=== PATIENT | female | born 1965 | race Caucasian/White ===

== ENCOUNTER 2016-11-24 19:49 | Inpatient (IN) | payer BC ==
[2016-11-24] MEDS ORDERED: SODIUM CHLORIDE 0.9% 1,000 ML IV STA (20:12)
[2016-11-24] MEDS ORDERED: SODIUM CHLORIDE 0.9% 1,000 ML IV ONE (20:12)
[2016-11-24] MEDS ORDERED: MORPHINE SULFATE 4 MG/ML SYRINGE IV STA (20:12)
[2016-11-24] MEDS ORDERED: IV VANCOMYCIN PER PHARMACY 1 EACH MISC MISCELLANE PRN (20:14)
[2016-11-24] MEDS ORDERED: ACETAMINOPHEN TAB 500 MG TAB PO STA (20:15)
--- NOTE | 2016-11-24 20:18 | ED ---
General Adult HPI - General Chief complaint: Extremity Problem,Nontraumatic Stated complaint: rt leg swelling Time Seen by Provider: 11/24/16 20:09 Source: patient, RN notes reviewed, old records reviewed Mode of arrival: ambulatory Limitations: no limitations - History of Present Illness Initial comments: This is a 3-year-old female here for evaluation. The patient comes in for evaluation of right lower extremity pain. He subsequently myalgias fever and aches and pains. Patient's pain in her right leg is consistent with prior history of fluids. Patient has bilateral lower extremity edema. Is on water pills for swelling. Patient states the pain Surtees go progressively worsening also ordered a fever. She states she has been recently hospitalized in the past for bouts of cellulitis - Related Data Home Medications Medication Instructions Recorded Confirmed Acetaminophen Tab [Tylenol Tab] 650 mg PO Q6H PRN 11/24/16 11/24/16 Albuterol Inhaler [Ventolin Hfa 2 puff INHALATION RT-Q6H PRN 11/24/16 11/24/16 Inhaler] Cetirizine HCl [Zyrtec] 10 mg PO DAILY 11/24/16 11/24/16 Furosemide [Lasix] 20 mg PO DAILY 11/24/16 11/24/16 Glucosamine/Chondr Florez A Sod [Osteo 1 tab PO DAILY 11/24/16 11/24/16 Bi-Flex Caplet] Lisinopril [Zestril] 2.5 mg PO DAILY 11/24/16 11/24/16 Montelukast [Singulair] 10 mg PO HS 11/24/16 11/24/16 Multivitamins, Thera [Multivitamin 1 tab PO DAILY 11/24/16 11/24/16 (formulary)] Spironolactone [Aldactone] 25 mg PO DAILY 11/24/16 11/24/16 Allergies Allergy/AdvReac Type Severity Reaction Status Date / Time ibuprofen Allergy Swelling Verified 11/24/16 20:25 Review of Systems ROS Statement: Those systems with pertinent positive or pertinent negative responses have been documented in the HPI. ROS Other: All systems not noted in ROS Statement are negative. Past Medical History Past Medical History: Asthma History of Any Multi-Drug Resistant Organisms: None Reported Past Surgical History: Section, Orthopedic Surgery Additional Past Surgical History / Comment(s): knee, shoulder Past Psychological History: No Psychological Hx Reported Smoking Status: Never smoker Past Alcohol Use History: None Reported Past Drug Use History: None Reported General Exam Limitations: no limitations General appearance: alert, in no apparent distress Head exam: Present: atraumatic, normocephalic, normal inspection Eye exam: Present: normal appearance, PERRL, EOMI. Absent: scleral icterus, conjunctival injection, periorbital swelling ENT exam: Present: normal exam, mucous membranes moist Neck exam: Present: normal inspection. Absent: tenderness, meningismus, lymphadenopathy Respiratory exam: Present: normal lung sounds bilaterally. Absent: respiratory distress, wheezes, rales, rhonchi, stridor Cardiovascular Exam: Present: regular rate, normal rhythm, normal heart sounds. Absent: systolic murmur, diastolic murmur, rubs, gallop, clicks GI/Abdominal exam: Present: soft, normal bowel sounds. Absent: distended, tenderness, guarding, rebound, rigid Extremities exam: Present: normal inspection, full ROM, normal capillary refill , other (Right lower extremity swelling edema or erythema, circumferential warmth and tenderness). Absent: tenderness, pedal edema, joint swelling, calf tenderness Back exam: Present: normal inspection Neurological exam: Present: alert, oriented X3, CN II-XII intact Psychiatric exam: Present: normal affect, normal mood Skin exam: Present: warm, dry, intact, normal color. Absent: rash Course Vital Signs 11/24/16 20:02 Temperature 99.4 F Pulse Rate 97 Respiratory 18 Rate Blood Pressure 131/59 O2 Sat by Pulse 98 Oximetry - Reevaluation(s) Reevaluation #1: 11/24/16 20:17 Patient's bodyaches and myalgias are improved with the pain control EKG Findings - EKG Comments: EKG Findings:: EKG shows normal sinus Anabell 94, ID 140, QRS 80, QTC 432 Medical Decision Making - Medical Decision Making 51 female in the ER for evaluation of right lower extremity swelling and severe Bredeson erythema, warmth and tenderness. Patient with positive right lower extremity cellulitis circumferential spreading from pedis or topical foot to just below knee. Patient be admitted for IV antibiotics. Prior history of gram -negative cellulitis - Radiology Data Radiology results: report reviewed (Chest x-ray is negative for acute disease), image reviewed Disposition Clinical Impression: Cellulitis of right lower extremity Disposition: ADMITTED IP TO THIS HOSP Condition: Good Referrals: Jose Francisco Isabel MD [Primary Care Provider] - 1-2 days
[2016-11-24] MEDS ORDERED: VANCOMYCIN 1,750 MG in SODIUM CHLORIDE 0.9% 250 ML IVPB STA (20:20)
[2016-11-24 21:33] LABS: Basophils % (A) 0 %; CH 29.7; CHCM 33.3; Eosinophils % (A) 0 %; HCT 40.4 % (34.0-46.0); HDW 2.73; HGB 13.4 gm/dL (11.4-16.0); Luc # (Auto) 0.03; Luc % (Auto) 0; Lymphocytes # (A) 0.2 k/uL (1.0-4.8); Lymphocytes % (A) 2 %; MCH 29.9 pg (25.0-35.0); MCHC 33.3 g/dL (31.0-37.0); MCV 89.8 fL (80.0-100.0); Mean Platelet Volume 9.5; Monocytes # (A) 0.1 k/uL (0-1.0); Monocytes % (A) 1 %; Neutrophils # (A) 10.7 k/uL (1.3-7.7); Neutrophils % (A) 97 %; RDW 14.2 % (11.5-15.5); WBC 11.1 k/uL (3.8-10.6); WBC (Perox) 11.47
[2016-11-24 21:37] LABS: Appearance,Urine Cloudy (Clear); Bilirubin,Urine 1+ (Negative); Glucose,Urine (UA) Trace (Negative); Ketones,Urine Trace (Negative); Leukocyte Esterase,Urine Trace (Negative); Mucus,Urine Many /hpf; Nitrite,Urine Negative (Negative); Particle Count 24479; Protein,Urine 2+ (Negative); RBC,Urine 2 /hpf (0-5); Specific Gravity,Urine 1.037 (1.001-1.035); Squamous Epithelial Cell,Urine 4 /hpf (0-4); UA Billing (MACRO vs. MICRO) MICRO; WBC,Urine 8 /hpf (0-5)
--- NOTE | 2016-11-24 21:42 | XR ---
EXAMINATION TYPE: XR chest 2V DATE OF EXAM: 11/24/2016 COMPARISON: NONE INDICATION: Weakness right lower extremity redness and swelling dizziness TECHNIQUE: Frontal and lateral views of the chest are obtained. FINDINGS: The heart size is normal. The pulmonary vasculature is normal. The lungs are clear. IMPRESSION: 1. No acute pulmonary process.
[2016-11-24 21:44] LABS: ALT 76 U/L (9-52); AST 61 U/L (14-36); Alkaline Phosphatase 97 U/L (38-126); Anion Gap 11 mmol/L; Blood Urea Nitrogen 13 mg/dL (7-17); Calcium 9.1 mg/dL (8.4-10.2); Carbon Dioxide 22 mmol/L (22-30); Chloride 105 mmol/L (98-107); Glucose 109 mg/dL (74-99); Magnesium 1.8 mg/dL (1.6-2.3); Non-African American GFR(MDRD) >60 (>60 ml/min/1.73 sqM); Phosphorous 2.7 mg/dL (2.5-4.5); Potassium 3.7 mmol/L (3.5-5.1); Sodium 138 mmol/L (137-145); Total Protein 6.3 g/dL (6.3-8.2)
[2016-11-24 21:46] LABS: INR 1.3 (<1.1); Partial Thromboplastin Time 31.2 sec (22.0-30.0); Prothrombin Time 13.2 sec (9.0-12.0)
[2016-11-24 22:16] LABS: Creatine Kinase MB 0.9 ng/mL (0.0-2.4)
[2016-11-24 23:01] VITALS: BMI 43.3
[2016-11-25] MEDS: ACETAMINOPHEN TAB 325 MG TAB PO PRN ×2 (03:24→15:37)
[2016-11-25] MEDS: VANCOMYCIN 1,750 MG in SODIUM CHLORIDE 0.9% 250 ML IVPB SCH ×2 (05:56→17:58)
[2016-11-25] MEDS: ENOXAPARIN 40 MG/0.4 ML SYRINGE SQ SCH (07:46)
[2016-11-25] MEDS ORDERED: ALBUTEROL NEBULIZED 2.5 MG/3 ML INHALATION PRN (08:58)
[2016-11-25] MEDS: HYDROcodone/APAP 7.5-325MG 1 EACH TAB PO PRN ×3 (10:25→20:10)
[2016-11-25] MEDS: SPIRONOLACTONE 25 MG TAB PO SCH (10:26)
[2016-11-25] MEDS: LISINOPRIL 2.5 MG TAB PO SCH (10:26)
[2016-11-25] MEDS: FUROSEMIDE 20 MG TAB PO SCH (10:26)
[2016-11-25] MEDS ORDERED: MULTIVITAMINS, THERA 1 EACH TAB PO SCH (12:00)
--- NOTE | 2016-11-25 13:13 | US ---
EXAMINATION TYPE: US venous Doppler duplex LE RT DATE OF EXAM: 11/25/2016 11:55 AM COMPARISON: 04/21/2010 CLINICAL HISTORY: r/o DVT. Cellulitis; right lower leg pain, redness and swelling x 3 days. SIDE PERFORMED: Right TECHNIQUE: The lower extremity deep venous system is examined utilizing real time linear array sonog norma with graded compression, Doppler sonography and color-flow sonography. VESSELS IMAGED: Common Femoral Vein Deep Femoral Vein Greater Saphenous Vein * Femoral Vein Popliteal Vein Small Saphenous Vein * Proximal Calf Veins (* superficial vessels) Right Leg: Negative for DVT; prominent lymph node is noted at right groin = 1.3 x 1.4 x 1.2cm. IMPRESSION: 1 no diagnostic evidence of DVT. 2. Right inguinal adenopathy.
[2016-11-25] MEDS: NAPROXEN 250 MG TAB PO SCH ×2 (18:06→21:59)
--- NOTE | 2016-11-25 20:15 | P.CONS ---
History of Present Illness - Reason for Consult Consult date: 11/25/16 - Chief Complaint Fever pain right leg - History of Present Illness Pleasant 51-year-old female presents to the emergency center with a sudden onset of increasing pain erythema and tenderness to her right lower extremity. Was associated with the onset of significant myalgias as well as fever and chills and body aches. She has history of prior cellulitis of the right lower extremity. At that time it was thought due to some dermatophycosis. She's been trying to moisturize her skin. Timmy had the sudden onset of the pain and swelling to the right limb. With no antecedent trauma that she is aware of. Because she felt so poorly she presented emergency center where she was found have a temperature of 102.5. With this the infectious diseases consultation was requested. She relates that in the past her prior infection was E. coli. Review of Systems HEENT: Complains of headache but no visual change Denies sinus or mouth discomforts. Denies neck stiffness or pain. Denies significant oral cavity pain. Denies difficulty on swallowing. Lungs: Denies significant shortness of breath, cough, sputum production, or hemoptysis. Cardiovascular: Denies significant shortness of breath, chest pain, chest wall pain, orthopnea, dyspnea on exertion, syncope Gastrointestinal:Denies nausea, vomiting, diarrhea, constipation, hematemesis, melena, hematochezia. No no significant change of bowel habit noticed. Musculoskeletal: denies significant myalgias or arthralgias. No new joint swelling. Denies new back pain. Skin: Her the HPI Neuro: Denies headache or visual change. Denies any new onset weakness or difficulty with ambulation. Denies falls or seizures. Psychiatric:Denies anxiety or depression. Endocrine: Denies significant fatigue, denies significant weight loss or weight gain. Past Medical History Past Medical History: Asthma, Hypertension, Pneumonia Additional Past Medical History / Comment(s): Rt leg cellulitis 4 years ago with ecoli in the leg wounds. History of Any Multi-Drug Resistant Organisms: None Reported Past Surgical History: Section, Orthopedic Surgery Additional Past Surgical History / Comment(s): 3 right knee surgeries, Left shoulder surgery Past Anesthesia/Blood Transfusion Reactions: No Reported Reaction Past Psychological History: No Psychological Hx Reported Additional Psychological History / Comment(s): . Lives in the family home. No animal exposures. No travel. No trauma. No experience Smoking Status: Never smoker Medications and Allergies Home Medications and Allergies Comment(s): Current Medications Acetaminophen (Tylenol Tab) 650 mg PO Q6HR PRN PRN Reason: Fever and/ or Mild Pain Last Admin: 11/25/16 15:37 Dose: 650 mg Hydrocodone Bitart/Acetaminophen ([place] 7.5-325) 1 each PO Q4H PRN PRN Reason: Moderate Pain Last Admin: 11/25/16 14:58 Dose: 1 each Albuterol Sulfate (Ventolin Nebulized) 2.5 mg INHALATION RT-Q6H PRN PRN Reason: Shortness Of Breath Enoxaparin Sodium (Lovenox) 40 mg SQ DAILY [facility] Last Admin: 11/25/16 07:46 Dose: Not Given Furosemide (Lasix) 20 mg PO DAILY [facility] Last Admin: 11/25/16 10:26 Dose: 20 mg Ceftriaxone Sodium 1,000 mg/ (Sodium Chloride) 50 mls @ 100 mls/hr IVPB Q24H [facility] Vancomycin HCl 1,750 mg/ (Sodium Chloride) 250 mls @ 125 mls/hr IVPB Q12H [facility] Last Admin: 11/25/16 17:58 Dose: 125 mls/hr Lisinopril (Zestril) 2.5 mg PO DAILY [facility] Last Admin: 11/25/16 10:26 Dose: 2.5 mg Montelukast Sodium (Singulair) 10 mg PO HS [facility] Multivitamins (Theragran) 1 each PO DAILY@1200 XANDER Naproxen (Naprosyn) 500 mg PO TID [facility] Last Admin: 11/25/16 18:06 Dose: 500 mg Spironolactone (Aldactone) 25 mg PO DAILY [facility] Last Admin: 11/25/16 10:26 Dose: 25 mg Home Medications Medication Instructions Recorded Confirmed Type Acetaminophen Tab [Tylenol Tab] 650 mg PO Q6H PRN 11/24/16 11/24/16 History Albuterol Inhaler [Ventolin Hfa 2 puff INHALATION RT-Q6H PRN 11/24/16 11/24/16 History Inhaler] Cetirizine HCl [Zyrtec] 10 mg PO DAILY 11/24/16 11/24/16 History Furosemide [Lasix] 20 mg PO DAILY 11/24/16 11/24/16 History Glucosamine/Chondr Florez A Sod [Osteo 1 tab PO DAILY 11/24/16 11/24/16 History Bi-Flex Caplet] Lisinopril [Zestril] 2.5 mg PO DAILY 11/24/16 11/24/16 History Montelukast [Singulair] 10 mg PO HS 11/24/16 11/24/16 History Multivitamins, Thera [Multivitamin 1 tab PO DAILY 11/24/16 11/24/16 History (formulary)] Spironolactone [Aldactone] 25 mg PO DAILY 11/24/16 11/24/16 History Allergies Allergy/AdvReac Type Severity Reaction Status Date / Time ibuprofen Allergy Swelling Verified 11/24/16 20:25 Physical Exam Vitals: Vital Signs Temp Pulse Pulse Resp BP BP Pulse Ox 11/25/16 19:38 101 F H 11/25/16 16:59 102.5 F H 11/25/16 15:00 101.5 F H 107 H 20 131/63 95 11/25/16 07:00 98.7 F 92 20 111/52 99 11/24/16 23:00 98.2 F 86 20 105/59 95 11/24/16 21:49 99.6 F 86 16 119/56 95 11/24/16 20:56 100.2 F H Intake and Output 11/25/16 11/25/16 11/25/16 06:59 14:59 22:59 Intake Total 200 1290 Balance 200 1290 Intake: IV 1050 Sodium Chloride 0.9% 1, 800 000 ml @ 100 mls/hr IV . Q10H ONE Rx#:[id number] Vancomycin 1,750 mg In 250 Sodium Chloride 0.9% 250 ml @ 125 mls/hr IVPB Q12H [facility] Rx#:[id number] Oral 200 240 Other: Voiding Method Toilet # Voids 2 Weight 114.305 kg Pleasant 51-year-old woman who suffers from obesity and is quite uncomfortable at this point in time. Complaining of pain to right lower extremity as well as fever. Did not have a significant improvement with Tylenol. HEENT: Anicteric conjunctiva are pink and moist nasal mucosa grossly intact without significant lesions, there is no thrush. Neck: The neck is supple without significant lymphadenopathy or thyromegaly. Lungs: Good bilateral air entry without significant crackles or wheezing. There is no significant bronchial sounds. There is no egophony or dullness. Heart: Regular rate and rhythm with an audible S1-S2, no S3 no S4. There is no significant murmur click or rub, PMI was nondisplaced. Abdomen: Positive bowel sounds soft and nontender without palpable masses or organomegaly. There was no guarding or rebound. Extremities: The upper extremities have excellent pulses they are symmetric, no significant petechiae or telangiectasia. No splinter hemorrhages were noted. The left lower extremity shows no evidence of any lesions. Skin is in good order without significant open lesions on the left leg. The right lower extremity shows evidence of swelling that's evident especially distally in the leg. There is extensive erythema from the ankle proximal to the knee. From the knee to the groin there is evidence of splotchy areas of erythema that are mildly tender but not nearly as tender as a comfortable erythema on the calf. There is distinctly tender lymphadenopathy to the right groin. No lymphadenopathy noted in other areas. Neuro: Awake alert oriented to person place and time. There are no acute new gross focal sensory motor deficits. Results CBC & Chem 7: 11/24/16 20:56 11/24/16 20:56 Labs: Abnormal Lab Results - Last 24 Hours (Table) 11/24/16 11/24/16 11/24/16 Range/Units 20:56 20:56 20:56 WBC 11.1 H (3.8-10.6) k/uL Plt Count 109 L (150-450) k/uL Neutrophils # 10.7 H (1.3-7.7) k/uL Lymphocytes # 0.2 L (1.0-4.8) k/uL PT 13.2 H (9.0-12.0) sec APTT 31.2 H (22.0-30.0) sec Glucose 109 H (74-99) mg/dL AST 61 H (14-36) U/L ALT 76 H (9-52) U/L Urine Appearance (Clear) Ur Specific [place] (1.001-1.035) Urine Protein (Negative) Urine Glucose (UA) (Negative) Urine Ketones (Negative) Urine Bilirubin (Negative) Ur Leukocyte Esterase (Negative) Urine WBC (0-5) /hpf Urine Mucus (None) /hpf 11/24/16 Range/Units 20:56 WBC (3.8-10.6) k/uL Plt Count (150-450) k/uL Neutrophils # (1.3-7.7) k/uL Lymphocytes # (1.0-4.8) k/uL PT (9.0-12.0) sec APTT (22.0-30.0) sec Glucose (74-99) mg/dL AST (14-36) U/L ALT (9-52) U/L Urine Appearance Cloudy H (Clear) Ur Specific [place] 1.037 H (1.001-1.035) Urine Protein 2+ H (Negative) Urine Glucose (UA) Trace H (Negative) Urine Ketones Trace H (Negative) Urine Bilirubin 1+ H (Negative) Ur Leukocyte Esterase Trace H (Negative) Urine WBC 8 H (0-5) /hpf Urine Mucus Many H (None) /hpf Microbiology - Last 24 Hours (Table) 11/24/16 20:56 Urine Culture - Preliminary Urine,Voided Laboratory Results WBC 11.1 k/uL (3.8-10.6) H 11/24/16 20:56 RBC 4.50 m/uL (3.80-5.40) 11/24/16 20:56 Hgb 13.4 gm/dL (11.4-16.0) 11/24/16 20:56 Hct 40.4 % (34.0-46.0) 11/24/16 20:56 MCV 89.8 fL (80.0-100.0) 11/24/16 20:56 MCH 29.9 pg (25.0-35.0) 11/24/16 20:56 MCHC 33.3 g/dL (31.0-37.0) 11/24/16 20:56 RDW 14.2 % (11.5-15.5) 11/24/16 20:56 Plt Count 109 k/uL (150-450) L 11/24/16 20:56 Neutrophils % 97 % 11/24/16 20:56 Lymphocytes % 2 % 11/24/16 20:56 Monocytes % 1 % 11/24/16 20:56 Eosinophils % 0 % 11/24/16 20:56 Basophils % 0 % 11/24/16 20:56 Neutrophils # 10.7 k/uL (1.3-7.7) H 11/24/16 20:56 Lymphocytes # 0.2 k/uL (1.0-4.8) L 11/24/16 20:56 Monocytes # 0.1 k/uL (0-1.0) 11/24/16 20:56 Eosinophils # 0.0 k/uL (0-0.7) 11/24/16 20:56 Basophils # 0.0 k/uL (0-0.2) 11/24/16 20:56 PT 13.2 sec (9.0-12.0) H 11/24/16 20:56 INR 1.3 (<1.1) 11/24/16 20:56 APTT 31.2 sec (22.0-30.0) H 11/24/16 20:56 Sodium 138 mmol/L (137-145) 11/24/16 20:56 Potassium 3.7 mmol/L (3.5-5.1) 11/24/16 20:56 Chloride 105 mmol/L (98-107) 11/24/16 20:56 Carbon Dioxide 22 mmol/L (22-30) 11/24/16 20:56 Anion Gap 11 mmol/L 11/24/16 20:56 BUN 13 mg/dL (7-17) 11/24/16 20:56 Creatinine 0.80 mg/dL (0.52-1.04) 11/24/16 20:56 Est GFR (MDRD) Af Amer >60 (>60 ml/min/1.73 sqM) 11/24/16 20:56 Est GFR (MDRD) Non-Af >60 (>60 ml/min/1.73 sqM) 11/24/16 20:56 Glucose 109 mg/dL (74-99) H 11/24/16 20:56 Plasma Lactic Acid Nick 1.9 mmol/L (0.7-2.0) 11/25/16 18:36 Calcium 9.1 mg/dL (8.4-10.2) 11/24/16 20:56 Phosphorus 2.7 mg/dL (2.5-4.5) 11/24/16 20:56 Magnesium 1.8 mg/dL (1.6-2.3) 11/24/16 20:56 Total Bilirubin 1.0 mg/dL (0.2-1.3) 11/24/16 20:56 AST 61 U/L (14-36) H 11/24/16 20:56 ALT 76 U/L (9-52) H 11/24/16 20:56 Alkaline Phosphatase 97 U/L (38-126) 11/24/16 20:56 Total Creatine Kinase 76 U/L (30-135) 11/24/16 20:56 CK-MB (CK-2) 0.9 ng/mL (0.0-2.4) 11/24/16 20:56 CK-MB (CK-2) Rel Index 1.2 11/24/16 20:56 Total Protein 6.3 g/dL (6.3-8.2) 11/24/16 20:56 Albumin 3.7 g/dL (3.5-5.0) 11/24/16 20:56 Urine Color [place] 11/24/16 20:56 Urine Appearance Cloudy (Clear) H 11/24/16 20:56 Urine pH 6.0 (5.0-8.0) 11/24/16 20:56 Ur Specific [place] 1.037 (1.001-1.035) H 11/24/16 20:56 Urine Protein 2+ (Negative) H 11/24/16 20:56 Urine Glucose (UA) Trace (Negative) H 11/24/16 20:56 Urine Ketones Trace (Negative) H 11/24/16 20:56 Urine Blood Negative (Negative) 11/24/16 20:56 Urine Nitrite Negative (Negative) 11/24/16 20:56 Urine Bilirubin 1+ (Negative) H 11/24/16 20:56 Urine Urobilinogen 6.0 mg/dL (<2.0) 11/24/16 20:56 Ur Leukocyte Esterase Trace (Negative) H 11/24/16 20:56 Urine RBC 2 /hpf (0-5) 11/24/16 20:56 Urine WBC 8 /hpf (0-5) H 11/24/16 20:56 Ur Squamous Epith Cells 4 /hpf (0-4) 11/24/16 20:56 Urine Mucus Many /hpf (None) H 11/24/16 20:56 Microbiology 11/24/16 20:56 Urine,Voided Urine Culture - Preliminary Assessment and Plan (1) Cellulitis of right lower extremity Narrative/Plan: 51-year-old female who suffers from obesity presents to the emergency center with the onset high-grade fever chills malaise and myalgia. She had the sudden onset of some swelling and erythema and intense pain to the right lower extremity. There is no evidence of any deep venous thrombosis by the duplex scan. Significant reactive lymphadenopathy to the right groin was noted. Patient has evidence of a prior history of E. coli infection to her skin. This is somewhat unusual. The may have had exposures. Current situation looks more like a staphylococcal or streptococcal infection with the ascending lymphangitis. We'll enhance antibiotic therapy until we have data from vancomycin to daptomycin. Ceftriaxone will be continued so that there is coverage for gram- negative infection. Silvadene wrap is added. She is up-to-date with her tetanus vaccine. Multivitamin is added. Elevation limit rest is important area For fever control she is able to take naproxen and this is added. She was not having significant improvement with acetaminophen. Status: Acute (2) Sepsis affecting skin Status: Acute (3) Fever Status: Acute (4) Leukocytosis Status: Acute (5) Acute lymphangitis of leg, except foot Status: Acute
[2016-11-25] MEDS: MONTELUKAST 10 MG TAB PO SCH (20:21)
--- NOTE | 2016-11-25 20:29 | HP ---
CHIEF COMPLAINT: Right lower extremity pain, swelling and erythema. This is a 51-year-old female with past medical history significant for right lower extremity cellulitis 5 years ago which was positive for abscess and drainage with E. coli, presents at this time to the hospital with similar presentation. The patient said on during the day she was feeling fine. All of the sudden at nighttime, she started having fever and chills with sweating and pain in her right lower extremity similar to the pain that she had 5 years ago. On Sunday morning, patient was getting ready to go to work, but noticed that it was very painful to bear weight on that right lower extremity and it was very swollen, red and hot to touch. The patient determined to come into the emergency department, where she was started on vancomycin and Rocephin and admitted to the medical floor. The patient denied any chest pain, shortness breath, dizziness, lightheadedness, blurry vision, burning on urination or change in her weight recently, said that she is up to date on her physical examination with her primary care physician. Denied any trauma, laceration, insect bite or any other triggers for her right lower extremity cellulitis. Denied any drainage, said that she does not usually scratch her legs and she had this episode 5 years ago with similar presentation without being able to determine why she had that infection at that time. The patient denied history of diabetes, said that she takes her asthma medicine and osteoarthritis pain pills at home and blood pressure pills, but never been started on newly prescribed medication. REVIEW OF SYSTEMS: All 14 systems reviewed and negative except as above. ALLERGIES: IBUPROFEN GIVES HER SWELLING. HOME MEDICATIONS: 1. Albuterol. 2. Tylenol as needed. 3. Multivitamins daily. 4. Singulair daily. 5. Glucosamine daily. 6. Cetirizine daily. 7. Spironolactone daily. 8. Lisinopril daily. 9. Furosemide 20 daily. PAST MEDICAL AND SURGICAL HISTORY: 1. Hypertension. 2. Chronic lower extremity swelling. 3. Obesity. 4. Asthma. 5. Chronic allergic rhinitis. 6. . 7. Orthopedic surgery on her knee and shoulder. SOCIAL HISTORY: The patient denied tobacco, alcohol or drug abuse, said that she works as a cashier tube room at [employer] and her job requires her to be in standing position all day long. FAMILY HISTORY: Reviewed and negative. PHYSICAL EXAMINATION: VITAL SIGNS: Reviewed and stable. LUNGS: Clear to auscultation bilaterally. HEART: Normal S1, S2. HEENT: Atraumatic, normocephalic. PERRLA. NECK: Supple, no masses. No thyromegaly. ABDOMEN: Soft, no tenderness. Positive bowel sounds in all 4 quadrants. SKIN: No new rash. PSYCH: Alert, and oriented x3. NEURO: Cranial nerves 2-12 intact are intact. Normal reflexes and sensation. Lower extremities positive for severe erythema, swelling and warmth to touch on right lower extremity expanding between the upper area of her ankle to the lower area of right knee, sparing the knee and the ankle joint with normal range of motion on both of them. Erythema and warmth are circumferential with no obvious abscess formation. No obvious scratch, trauma or laceration. Pulses are positive and strong and bilaterally. IMAGING AND LABS: EKG showed sinus rhythm. CBC showed mild leukocytosis with thrombocytopenia at 109. ASSESSMENT AND PLAN: 1. Right lower extremity cellulitis with mild leukocytosis and fever. Physical exam indicating severe erythema, warmth and swelling. I would like to continue with leg elevation. Patient was started on vancomycin and Rocephin and I would like to continue with the current coverage. Blood cultures were obtained in the emergency department. Follow up on culture results. I would like to continue with the skin care and the patient indicated that last time she had drainage from the leg 3 days after admission to the hospital and required 2 weeks in the hospital. I would like to monitor skin closely and consider cultures if it opens with any drainage. I would like to consult Infectious Disease and I ordered stat Doppler to rule out deep venous thrombosis, which turned to be negative, but was positive for enlarged lymph nodes. I consulted Dr. Austin for further evaluation. I would like to start patient on deep venous thrombosis prophylaxis with Lovenox at this point. 2. Chronic lower extremity edema with slight lymphedema. Management as above. 3. Hypertension, under fair control. Continue home medication. 4. Asthma. I will continue Singulair and breathing treatments as needed. 5. Allergic rhinitis. Will continue ranitidine. 6. Obesity. Consultation regarding weight loss and healthy lifestyle. 7. Leukocytosis, likely secondary to #1. Will monitor. 8. Thrombocytopenia, mild and asymptomatic. Will monitor and repeat CBC in the morning.
[2016-11-25] MEDS: DAPTOmycin 500 MG in SODIUM CHLORIDE 0.9% 50 ML IV SCH (21:09)
[2016-11-26] MEDS: HYDROcodone/APAP 7.5-325MG 1 EACH TAB PO PRN ×3 (00:18→18:58)
[2016-11-26 08:03] LABS: CH 29.5; CHCM 33.8; HCT 35.2 % (34.0-46.0); HDW 3.08; HGB 11.8 gm/dL (11.4-16.0); MCH 29.5 pg (25.0-35.0); MCHC 33.6 g/dL (31.0-37.0); MCV 87.8 fL (80.0-100.0); Mean Platelet Volume 9.4; RBC 4.01 m/uL (3.80-5.40); RDW 13.9 % (11.5-15.5); WBC 4.3 k/uL (3.8-10.6); WBC (Perox) 4.44
[2016-11-26 08:19] LABS: ALT 78 U/L (9-52); AST 62 U/L (14-36); Alkaline Phosphatase 91 U/L (38-126); Anion Gap 8 mmol/L; Blood Urea Nitrogen 12 mg/dL (7-17); Calcium 8.3 mg/dL (8.4-10.2); Carbon Dioxide 22 mmol/L (22-30); Chloride 108 mmol/L (98-107); Glucose 91 mg/dL (74-99); Non-African American GFR(MDRD) >60 (>60 ml/min/1.73 sqM); Potassium 3.7 mmol/L (3.5-5.1); Sodium 138 mmol/L (137-145); Total Bilirubin 1.1 mg/dL (0.2-1.3); Total Protein 5.4 g/dL (6.3-8.2)
[2016-11-26] MEDS: ENOXAPARIN 40 MG/0.4 ML SYRINGE SQ SCH ×3 (08:19→08:24)
[2016-11-26] MEDS: FUROSEMIDE 20 MG TAB PO SCH (08:20)
[2016-11-26] MEDS: SPIRONOLACTONE 25 MG TAB PO SCH (08:20)
[2016-11-26] MEDS: NAPROXEN 250 MG TAB PO SCH ×3 (08:20→21:07)
[2016-11-26] MEDS: LISINOPRIL 2.5 MG TAB PO SCH (08:22)
[2016-11-26 08:27] LABS: Manual Review Performed
[2016-11-26 08:29] LABS: Add Differential Manual Differential
[2016-11-26 08:31] LABS: Nucleated Red Blood Cells 0 /100 WBC (0-0)
[2016-11-26 08:33] LABS: Total Cells Counted 200
--- NOTE | 2016-11-26 10:23 | P.GSCN ---
History of Present Illness Consult date: 11/26/16 Reason for Consult: Lymphadenopathy right groin History of present illness: Thank you very much for asking us to see . She is a 51-year-old white female with sudden onset of swelling and pain and redness of her right the lower extremity. She had fever and chills with myalgias. She presented to the emergency room. Was found to have a temperature up to 102. Was admitted for further management. Workup did no history of trauma. She denies feeling any lump in the groin. Had a similar episode in the past which resolved the with the inpatient the IV antibiotics for almost 10-11 days. reveal the right groin lymphadenopathy. Past history family history well-documented. On examination the patient is a well-built well-nourished in no acute distress quite overweight. Abdomen is quite soft and benign with no localized tenderness guarding or rebound. The palpable lymph node in the right groin somewhat tender diffuse induration probably about 20 cm in diameter. Has cellulitis of the right lower extremity from the ankle to the calf and leg to just below the knee. Has the patches of erythema along the medial aspect of the thigh all the way up to the groin. Impression. Probably reactive the right inguinal lymphadenopathy from the cellulitis of the right lower extremity. Recommendation. Continued IV antibiotics medical management elevation etc. Can reevaluate the groin lymphadenopathy in a month or 2 when the infection has cleared up. Past Medical History Past Medical History: Asthma, Hypertension, Pneumonia Additional Past Medical History / Comment(s): Rt leg cellulitis 4 years ago with ecoli in the leg wounds. History of Any Multi-Drug Resistant Organisms: None Reported Past Surgical History: Section, Orthopedic Surgery Additional Past Surgical History / Comment(s): 3 right knee surgeries, Left shoulder surgery Past Anesthesia/Blood Transfusion Reactions: No Reported Reaction Past Psychological History: No Psychological Hx Reported Additional Psychological History / Comment(s): . Lives in the family home. No animal exposures. No travel. No trauma. No experience Smoking Status: Never smoker Medications and Allergies Home Medications Medication Instructions Recorded Confirmed Type Acetaminophen Tab [Tylenol Tab] 650 mg PO Q6H PRN 11/24/16 11/24/16 History Albuterol Inhaler [Ventolin Hfa 2 puff INHALATION RT-Q6H PRN 11/24/16 11/24/16 History Inhaler] Cetirizine HCl [Zyrtec] 10 mg PO DAILY 11/24/16 11/24/16 History Furosemide [Lasix] 20 mg PO DAILY 11/24/16 11/24/16 History Glucosamine/Chondr Florez A Sod [Osteo 1 tab PO DAILY 11/24/16 11/24/16 History Bi-Flex Caplet] Lisinopril [Zestril] 2.5 mg PO DAILY 11/24/16 11/24/16 History Montelukast [Singulair] 10 mg PO HS 11/24/16 11/24/16 History Multivitamins, Thera [Multivitamin 1 tab PO DAILY 11/24/16 11/24/16 History (formulary)] Spironolactone [Aldactone] 25 mg PO DAILY 11/24/16 11/24/16 History Allergies Allergy/AdvReac Type Severity Reaction Status Date / Time ibuprofen Allergy Swelling Verified 11/24/16 20:25 Surgical - Exam Vital Signs Temp Pulse Resp BP Pulse Ox 99.4 F 97 18 131/59 98 11/24/16 20:02 11/24/16 20:02 11/24/16 20:02 11/24/16 20:02 11/24/16 20:02 Results - Labs 11/26/16 07:40 11/26/16 07:40 Abnormal Lab Results - Last 24 Hours (Table) 11/26/16 11/26/16 Range/Units 07:40 07:40 Plt Count 76 L (150-450) k/uL Lymphocytes # (Manual) 0.4 L (1.0-4.8) k/uL Chloride 108 H (98-107) mmol/L Calcium 8.3 L (8.4-10.2) mg/dL AST 62 H (14-36) U/L ALT 78 H (9-52) U/L Total Protein 5.4 L (6.3-8.2) g/dL Albumin 2.8 L (3.5-5.0) g/dL Microbiology - Last 24 Hours (Table) 11/24/16 20:56 Blood Culture - Preliminary Blood No Growth after 24 hours 11/24/16 20:56 Urine Culture - Preliminary Urine,Voided Diabetes panel 11/26/16 Range/Units 07:40 Sodium 138 (137-145) mmol/L Potassium 3.7 (3.5-5.1) mmol/L Chloride 108 H (98-107) mmol/L Carbon Dioxide 22 (22-30) mmol/L BUN 12 (7-17) mg/dL Creatinine 0.66 (0.52-1.04) mg/dL Glucose 91 (74-99) mg/dL Calcium 8.3 L (8.4-10.2) mg/dL AST 62 H (14-36) U/L ALT 78 H (9-52) U/L Alkaline Phosphatase 91 (38-126) U/L Total Protein 5.4 L (6.3-8.2) g/dL Albumin 2.8 L (3.5-5.0) g/dL Calcium panel 11/26/16 Range/Units 07:40 Calcium 8.3 L (8.4-10.2) mg/dL Albumin 2.8 L (3.5-5.0) g/dL Pituitary panel 11/26/16 Range/Units 07:40 Sodium 138 (137-145) mmol/L Potassium 3.7 (3.5-5.1) mmol/L Chloride 108 H (98-107) mmol/L Carbon Dioxide 22 (22-30) mmol/L BUN 12 (7-17) mg/dL Creatinine 0.66 (0.52-1.04) mg/dL Glucose 91 (74-99) mg/dL Calcium 8.3 L (8.4-10.2) mg/dL Adrenal panel 11/26/16 Range/Units 07:40 Sodium 138 (137-145) mmol/L Potassium 3.7 (3.5-5.1) mmol/L Chloride 108 H (98-107) mmol/L Carbon Dioxide 22 (22-30) mmol/L BUN 12 (7-17) mg/dL Creatinine 0.66 (0.52-1.04) mg/dL Glucose 91 (74-99) mg/dL Calcium 8.3 L (8.4-10.2) mg/dL Total Bilirubin 1.1 (0.2-1.3) mg/dL AST 62 H (14-36) U/L ALT 78 H (9-52) U/L Alkaline Phosphatase 91 (38-126) U/L Total Protein 5.4 L (6.3-8.2) g/dL Albumin 2.8 L (3.5-5.0) g/dL
[2016-11-26] MEDS: MULTIVITAMINS, THERA 1 EACH TAB PO SCH (12:32)
--- NOTE | 2016-11-26 18:43 | PN ---
INTERVAL HISTORY: Patient continued to be hemodynamically stable. Spent the night with 2 pillows underneath her right lower leg. Said that it was painful but definitely better than when she came in. Patient Jozef wrap was done yesterday and this morning showed significant swelling similar to yesterday with significant warmness but leg is less shiny than yesterday. Positive pulses appreciated thoroughly. Patient denied fever and chills and said that she has been improving slowly. PHYSICAL EXAMINATION: VITAL SIGNS: Patient had one fever yesterday at 7:00 p.m. of 101 and the patient continued to be afebrile since that time. Other vital signs are within normal limits. LUNGS: Clear to auscultation bilaterally. HEART: Normal S1, S2. ABDOMEN: Soft, no tenderness, positive bowel sounds in all 4 quadrants. SKIN: No new rash. PSYCH: Alert, and oriented x3. LOWER EXTREMITIES: As mentioned above. Imaging and labs: CBC showed normal finding except for low platelets dropped from 100 to 76. Chemistry showed normal findings. AST, ALT is slightly elevated at 62, 78 respectively. Albumin is 2.8. Urine culture still pending, negative. Blood cultures are still pending, negative. ASSESSMENT AND PLAN: 1. Right lower extremity cellulitis recurrent with lymphangitis. Patient slightly improved from yesterday. We will continue with leg elevation. IV antibiotics per Dr. Romo' recommendation. Continue with Jozef wrap and pain management. 2. Chronic lower extremity lymphedema. Outpatient referral to lymphedema clinic. 3. Hypertension, under fair control. 4. Asthma seems to be compensated. 5. Obesity, counseled regarding weight loss. 6. Leukocytosis, resolved. 7. Thrombocytopenia mild and will continue monitoring. 8. Mild elevation in the liver function tests to be followed outpatient.
--- NOTE | 2016-11-26 20:40 | P.PN ---
Subjective Principal diagnosis: cellulitis with lymphangitis right leg Pleasant 51-year-old female presents to the emergency center with a sudden onset of increasing pain erythema and tenderness to her right lower extremity. Was associated with the onset of significant myalgias as well as fever and chills and body aches. She has history of prior cellulitis of the right lower extremity. At that time it was thought due to some dermatophycosis. She's been trying to moisturize her skin. Timmy had the sudden onset of the pain and swelling to the right limb. With no antecedent trauma that she is aware of. Because she felt so poorly she presented emergency center where she was found have a temperature of 102.5. With this the infectious diseases consultation was requested. She relates that in the past her prior infection was E. coli. Patient now having minimal improvement. The erythema to the foot is improved. There has been no further increasing amount of the dense erythema on the lower leg. Some increased tenderness to the area ascending lymphangitis on the thigh. Still has distinct tenderness at the area of lymphadenopathy in the right groin. Her fever has resolved. Feels slightly better overall. Objective - Vital Signs Vital signs: Vital Signs Temp 98.7 F 11/26/16 15:00 Pulse 81 11/26/16 15:00 Resp 18 11/26/16 15:00 BP 107/53 11/26/16 15:00 Pulse Ox 99 11/26/16 15:00 Intake & Output 11/26/16 11/26/16 11/27/16 06:59 18:59 06:59 Intake Total 640 Balance 640 Intake: Oral 640 Other: Voiding Method Toilet Toilet # Voids 2 3 - Exam [place] 51-year-old woman who suffers from obesity and is quite uncomfortable at this point in time. Complaining of pain to right lower extremity as well as fever. Did not have a significant improvement with Tylenol. HEENT: Anicteric conjunctiva are pink and moist nasal mucosa grossly intact without significant lesions, there is no thrush. Neck: The neck is supple without significant lymphadenopathy or thyromegaly. Lungs: Good bilateral air entry without significant crackles or wheezing. There is no significant bronchial sounds. There is no egophony or dullness. Heart: Regular rate and rhythm with an audible S1-S2, no S3 no S4. There is no significant murmur click or rub, PMI was nondisplaced. Abdomen: Positive bowel sounds soft and nontender without palpable masses or organomegaly. There was no guarding or rebound. Extremities: The upper extremities have excellent pulses they are symmetric, no significant petechiae or telangiectasia. No splinter hemorrhages were noted. The left lower extremity shows no evidence of any lesions. Skin is in good order without significant open lesions on the left leg. The right lower extremity shows evidence of swelling that's evident especially distally in the leg. There is extensive erythema from the ankle proximal to the knee. From the knee to the groin there is evidence of splotchy areas of erythema that are mildly tender but not nearly as tender as a comfortable erythema on the calf. There is distinctly tender lymphadenopathy to the right groin. No lymphadenopathy noted in other areas. Neuro: Awake alert oriented to person place and time. There are no acute new gross focal sensory motor deficits. - Labs CBC & Chem 7: 11/26/16 07:40 11/26/16 07:40 Labs: Abnormal Lab Results - Last 24 Hours (Table) 11/26/16 11/26/16 Range/Units 07:40 07:40 Plt Count 76 L (150-450) k/uL Lymphocytes # (Manual) 0.4 L (1.0-4.8) k/uL Chloride 108 H (98-107) mmol/L Calcium 8.3 L (8.4-10.2) mg/dL AST 62 H (14-36) U/L ALT 78 H (9-52) U/L Total Protein 5.4 L (6.3-8.2) g/dL Albumin 2.8 L (3.5-5.0) g/dL Microbiology - Last 24 Hours (Table) 11/24/16 20:56 Urine Culture - Preliminary Urine,Voided Strep agalactiae - (group b) Gram Neg Bacilli 11/24/16 20:56 Blood Culture - Preliminary Blood No Growth after 24 hours Laboratory Results WBC 4.3 k/uL (3.8-10.6) 11/26/16 07:40 RBC 4.01 m/uL (3.80-5.40) 11/26/16 07:40 Hgb 11.8 gm/dL (11.4-16.0) 11/26/16 07:40 Hct 35.2 % (34.0-46.0) 11/26/16 07:40 MCV 87.8 fL (80.0-100.0) 11/26/16 07:40 MCH 29.5 pg (25.0-35.0) 11/26/16 07:40 MCHC 33.6 g/dL (31.0-37.0) 11/26/16 07:40 RDW 13.9 % (11.5-15.5) 11/26/16 07:40 Plt Count 76 k/uL (150-450) L 11/26/16 07:40 Neutrophils % Not Reportable 11/26/16 07:40 Neutrophils % (Manual) 71.5 % 11/26/16 07:40 Band Neutrophils % 17.0 % 11/26/16 07:40 Lymphocytes % Not Reportable 11/26/16 07:40 Lymphocytes % (Manual) 10.0 % 11/26/16 07:40 Monocytes % Not Reportable 11/26/16 07:40 Monocytes % (Manual) 1.0 % 11/26/16 07:40 Eosinophils % Not Reportable 11/26/16 07:40 Eosinophils % (Manual) 0.5 % 11/26/16 07:40 Basophils % Not Reportable 11/26/16 07:40 Neutrophils # Not Reportable 11/26/16 07:40 Neutrophils # (Manual) 3.8 k/uL (1.3-7.7) 11/26/16 07:40 Lymphocytes # Not Reportable 11/26/16 07:40 Lymphocytes # (Manual) 0.4 k/uL (1.0-4.8) L 11/26/16 07:40 Monocytes # Not Reportable 11/26/16 07:40 Monocytes # (Manual) 0.0 k/uL (0-1.0) 11/26/16 07:40 Eosinophils # Not Reportable 11/26/16 07:40 Eosinophils # (Manual) 0.0 k/uL (0-0.7) 11/26/16 07:40 Basophils # Not Reportable 11/26/16 07:40 Nucleated RBCs 0 /100 WBC (0-0) 11/26/16 07:40 Manual Slide Review Performed 11/26/16 07:40 Poikilocytosis (manual Present 11/26/16 07:40 PT 13.2 sec (9.0-12.0) H 11/24/16 20:56 INR 1.3 (<1.1) 11/24/16 20:56 APTT 31.2 sec (22.0-30.0) H 11/24/16 20:56 Sodium 138 mmol/L (137-145) 11/26/16 07:40 Potassium 3.7 mmol/L (3.5-5.1) 11/26/16 07:40 Chloride 108 mmol/L (98-107) H 11/26/16 07:40 Carbon Dioxide 22 mmol/L (22-30) 11/26/16 07:40 Anion Gap 8 mmol/L 11/26/16 07:40 BUN 12 mg/dL (7-17) 11/26/16 07:40 Creatinine 0.66 mg/dL (0.52-1.04) 11/26/16 07:40 Est GFR (MDRD) Af Amer >60 (>60 ml/min/1.73 sqM) 11/26/16 07:40 Est GFR (MDRD) Non-Af >60 (>60 ml/min/1.73 sqM) 11/26/16 07:40 Glucose 91 mg/dL (74-99) 11/26/16 07:40 Plasma Lactic Acid Nick 1.9 mmol/L (0.7-2.0) 11/25/16 18:36 Calcium 8.3 mg/dL (8.4-10.2) L 11/26/16 07:40 Phosphorus 2.7 mg/dL (2.5-4.5) 11/24/16 20:56 Magnesium 1.8 mg/dL (1.6-2.3) 11/24/16 20:56 Total Bilirubin 1.1 mg/dL (0.2-1.3) 11/26/16 07:40 AST 62 U/L (14-36) H 11/26/16 07:40 ALT 78 U/L (9-52) H 11/26/16 07:40 Alkaline Phosphatase 91 U/L (38-126) 11/26/16 07:40 Total Creatine Kinase 76 U/L (30-135) 11/24/16 20:56 CK-MB (CK-2) 0.9 ng/mL (0.0-2.4) 11/24/16 20:56 CK-MB (CK-2) Rel Index 1.2 11/24/16 20:56 Total Protein 5.4 g/dL (6.3-8.2) L 11/26/16 07:40 Albumin 2.8 g/dL (3.5-5.0) L 11/26/16 07:40 Urine Color [place] 11/24/16 20:56 Urine Appearance Cloudy (Clear) H 11/24/16 20:56 Urine pH 6.0 (5.0-8.0) 11/24/16 20:56 Ur Specific [place] 1.037 (1.001-1.035) H 11/24/16 20:56 Urine Protein 2+ (Negative) H 11/24/16 20:56 Urine Glucose (UA) Trace (Negative) H 11/24/16 20:56 Urine Ketones Trace (Negative) H 11/24/16 20:56 Urine Blood Negative (Negative) 11/24/16 20:56 Urine Nitrite Negative (Negative) 11/24/16 20:56 Urine Bilirubin 1+ (Negative) H 11/24/16 20:56 Urine Urobilinogen 6.0 mg/dL (<2.0) 11/24/16 20:56 Ur Leukocyte Esterase Trace (Negative) H 11/24/16 20:56 Urine RBC 2 /hpf (0-5) 11/24/16 20:56 Urine WBC 8 /hpf (0-5) H 11/24/16 20:56 Ur Squamous Epith Cells 4 /hpf (0-4) 11/24/16 20:56 Urine Mucus Many /hpf (None) H 11/24/16 20:56 Microbiology 11/24/16 20:56 Urine,Voided Urine Culture - Preliminary Strep agalactiae - (group b) Gram Neg Bacilli 11/24/16 20:56 Blood Blood Culture - Preliminary No Growth after 24 hours Assessment and Plan (1) Cellulitis of right lower extremity Narrative/Plan: 51-year-old female who suffers from obesity presents to the emergency center with the onset high-grade fever chills malaise and myalgia. She had the sudden onset of some swelling and erythema and intense pain to the right lower extremity. There is no evidence of any deep venous thrombosis by the duplex scan. Significant reactive lymphadenopathy to the right groin was noted. Patient has evidence of a prior history of E. coli infection to her skin. This is somewhat unusual. The may have had exposures. Current situation looks more like a staphylococcal or streptococcal infection with the ascending lymphangitis. We'll enhance antibiotic therapy until we have data from vancomycin to daptomycin. Ceftriaxone will be continued so that there is coverage for gram- negative infection. Silvadene wrap is added. She is up-to-date with her tetanus vaccine. Multivitamin is added. Elevation limit rest is important area For fever control has been achieved with the naproxen Does feel somewhat xtensive erythema circumferential to the right lower leg. Still has some of the finisher card tender lymphadenopathy to We'll continue antibiotic therapy, pain control and elevation in Silvadene wrap. Expect improvement in 48 hours. Status: Acute (2) Sepsis affecting skin Status: Acute (3) Fever Status: Acute (4) Leukocytosis Status: Acute (5) Acute lymphangitis of leg, except foot Status: Acute
[2016-11-26] MEDS: DAPTOmycin 500 MG in SODIUM CHLORIDE 0.9% 50 ML IV SCH (21:06)
[2016-11-26] MEDS: MONTELUKAST 10 MG TAB PO SCH (21:07)
[2016-11-27] MEDS: HYDROcodone/APAP 7.5-325MG 1 EACH TAB PO PRN ×4 (00:13→21:35)
[2016-11-27] MEDS: diphenhydrAMINE 25 MG CAP PO PRN ×2 (00:38→22:45)
[2016-11-27] MEDS: LISINOPRIL 2.5 MG TAB PO SCH (07:36)
[2016-11-27] MEDS: SPIRONOLACTONE 25 MG TAB PO SCH (07:37)
[2016-11-27] MEDS: MULTIVITAMINS, THERA 1 EACH TAB PO SCH (07:37)
[2016-11-27] MEDS: FUROSEMIDE 20 MG TAB PO SCH (07:37)
[2016-11-27] MEDS: NAPROXEN 250 MG TAB PO SCH ×3 (07:37→21:35)
[2016-11-27] MEDS: BUTALB/APAP/CAFF 50-325-40MG TAB PO PRN (12:17)
[2016-11-27 13:24] LABS: Hepatitis B Surface Ag Index 0.05
[2016-11-27 13:30] LABS: Hepatitis B Core IgM Index 0.02
[2016-11-27 13:42] LABS: Hepatitis C Virus IgG Ab Negative (Negative); Hepatitis C Virus IgG Index 0.01
--- NOTE | 2016-11-27 14:50 | US ---
EXAMINATION TYPE: US abdomen limited DATE OF EXAM: 11/27/2016 COMPARISON: NONE CLINICAL HISTORY: elevated lft. Elevated LFT's, pt has no other complaints at this time EXAM MEASUREMENTS: Liver Length: 21.1 cm Gallbladder Wall: 0.2 cm CBD: 0.4 cm Right Kidney: 11.8 x 5.0 x 5.1 cm Pancreas: Panc Duct visible= 3mm/ tail obscured by bowel gas Liver: Enlarged, heterogeneous Gallbladder: wnl Evidence for sonographic Villanueva's sign: No CBD: wnl Right Kidney: wnl there is no hydronephrosis or pathologic calcification. There is no ascites in Morison's pouch. IMPRESSION: Limited exam. Hepatomegaly, correlate for fatty infiltration of the liver.
--- NOTE | 2016-11-27 16:26 | P.PN ---
Subjective This is a 51-year-old female patient of Dr. Jose Francisco lopez with a past medical history of right lower extremity cellulitis 5 years ago positive for abscess and drainage with E. coli, hypertension, asthma. Patient gives history that starting on she was feeling fine. All of a sudden at night she developed fever and chills with sweating and pain in her right lower extremity similar to the pain that she had 5 years ago. On Sunday morning she was getting ready for work but noticed there was very painful with weightbearing on the right lower extremity as well as swelling and redness and hot to touch. Patient came into [facility] emergency center where she was placed on vancomycin and Rocephin and admitted to the [facility] floor. Ultrasound was negative for DVT She was febrile with a temperature of 102.5. She has been followed by general surgeon and Dr. Romo. She is noted to have some improvement of the erythema to the foot but continues to have significant tenderness in the right groin area. She has been afebrile. Noted mild elevation of liver function tests for which ultrasound was ordered showing hepatomegaly correlate for fatty infiltration of the liver. Acute hepatitis panel is negative. Patient is complaining of headache for which Fioricet was added. Objective - Vital Signs Vital signs: Vital Signs Temp 97.3 F L 11/27/16 07:00 Pulse 76 11/27/16 07:00 Resp 16 11/27/16 07:00 BP 88/42 11/27/16 07:00 Pulse Ox 97 11/27/16 07:00 Intake & Output 11/26/16 11/27/16 11/27/16 18:59 06:59 18:59 Other: Voiding Method Toilet Toilet # Voids 3 2 - Exam Gen: This is a 51-year-old morbidly obese female. She is resting in bed and appears to be comfortable. HEENT: Head is atraumatic, normocephalic. Pupils equal, round. Sclerae is anicteric. NECK: Supple. No JVD. No lymphadenopathy. No thyromegaly. LUNGS: Clear to auscultation. No wheezes or rhonchi. No intercostal retractions. HEART: Regular rate and rhythm. No murmur. ABDOMEN: Soft. Bowel sounds are present. No masses. No tenderness. EXTREMITIES: Right lower extremity is noted to have edema along with erythema from the ankle to the knee with patchy areas of erythema into the groin area. Tender lymphadenopathy in the right groin. NEUROLOGICAL: Patient is awake, alert and oriented x3. Cranial nerves 2 through 12 are grossly intact. - Labs CBC & Chem 7: 11/26/16 07:40 11/26/16 07:40 Labs: Microbiology - Last 24 Hours (Table) 11/24/16 20:56 Urine Culture - Final Urine,Voided Strep agalactiae - (group b) Escherichia coli 11/24/16 20:56 Blood Culture - Preliminary Blood No Growth after 48 hours Assessment and Plan Plan: 1. Right lower extremity cellulitis with ascending lymphangitis. Consult with Dr. Romo appreciated. Continue Silvadene wraps and elevation. Continue daptomycin and ceftriaxone. Continue Lasix 20 mg orally daily and Aldactone. 2. Chronic lower extremity edema with mild lymphedema. Continue as in #1. 3. Asthma, mild intermittent. Currently stable. Continue albuterol, Singulair. 4. ALLERGIC rhinitis. 5. Morbid obesity with BMI of 43. 6. Thrombocytopenia. Continue to monitor 7. DVT prophylaxis. Continue Lovenox. 8. Hypertension. Continue lisinopril and Aldactone. 9. Fatty liver with elevated liver function test 10. Headache. Fioricet added. Discharge plan: Home in the next 24-48 hours Impression and plan of care have been directed as dictated by the signing physician. Kyara Cai nurse practitioner acting as scribe for signing physician.
[2016-11-27] MEDS: DAPTOmycin 500 MG in SODIUM CHLORIDE 0.9% 50 ML IV SCH (21:36)
[2016-11-27] MEDS: MONTELUKAST 10 MG TAB PO SCH (21:36)
[2016-11-27] MEDS: SILVER sulfADIAZINE Cream 400 GM 1 APPLIC APPLIC TOPICAL SCH (22:45)
[2016-11-28 08:37] LABS: CH 29.2; CHCM 33.2; HDW 2.94; HGB 11.9 gm/dL (11.4-16.0); MCH 29.1 pg (25.0-35.0); MCHC 32.9 g/dL (31.0-37.0); MCV 88.5 fL (80.0-100.0); Mean Platelet Volume 9.4; RBC 4.07 m/uL (3.80-5.40); RDW 13.9 % (11.5-15.5); WBC 6.2 k/uL (3.8-10.6)
[2016-11-28] MEDS: FUROSEMIDE 20 MG TAB PO SCH (09:13)
[2016-11-28] MEDS: ENOXAPARIN 40 MG/0.4 ML SYRINGE SQ SCH (09:13)
[2016-11-28] MEDS: NAPROXEN 250 MG TAB PO SCH ×3 (09:14→22:30)
[2016-11-28] MEDS: LISINOPRIL 2.5 MG TAB PO SCH (09:14)
[2016-11-28] MEDS: SILVER sulfADIAZINE Cream 400 GM 1 APPLIC APPLIC TOPICAL SCH ×2 (09:15→22:30)
[2016-11-28] MEDS: SPIRONOLACTONE 25 MG TAB PO SCH (09:17)
[2016-11-28] MEDS: HYDROcodone/APAP 7.5-325MG 1 EACH TAB PO PRN ×3 (09:17→23:49)
[2016-11-28 09:19] LABS: ALT 122 U/L (9-52); AST 102 U/L (14-36); Alkaline Phosphatase 158 U/L (38-126); Anion Gap 11 mmol/L; Blood Urea Nitrogen 11 mg/dL (7-17); Calcium 8.6 mg/dL (8.4-10.2); Carbon Dioxide 25 mmol/L (22-30); Chloride 107 mmol/L (98-107); Glucose 98 mg/dL (74-99); Non-African American GFR(MDRD) >60 (>60 ml/min/1.73 sqM); Sodium 143 mmol/L (137-145); Total Bilirubin 1.2 mg/dL (0.2-1.3); Total Protein 5.8 g/dL (6.3-8.2)
[2016-11-28] MEDS: MULTIVITAMINS, THERA 1 EACH TAB PO SCH (11:19)
[2016-11-28] MEDS: BUTALB/APAP/CAFF 50-325-40MG TAB PO PRN ×2 (11:20→19:55)
--- NOTE | 2016-11-28 12:24 | P.PN ---
Subjective 11/27: This is a 51-year-old female patient of Dr. Jose Francisco lopez with a past medical history of right lower extremity cellulitis 5 years ago positive for abscess and drainage with E. coli, hypertension, asthma. Patient gives history that starting on she was feeling fine. All of a sudden at night she developed fever and chills with sweating and pain in her right lower extremity similar to the pain that she had 5 years ago. On Sunday morning she was getting ready for work but noticed there was very painful with weightbearing on the right lower extremity as well as swelling and redness and hot to touch. Patient came into [facility] emergency center where she was placed on vancomycin and Rocephin and admitted to the [facility] floor. Ultrasound was negative for DVT She was febrile with a temperature of 102.5. She has been followed by general surgeon and Dr. Romo. She is noted to have some improvement of the erythema to the foot but continues to have significant tenderness in the right groin area. She has been afebrile. Noted mild elevation of liver function tests for which ultrasound was ordered showing hepatomegaly correlate for fatty infiltration of the liver. Acute hepatitis panel is negative. Patient is complaining of headache for which Fioricet was added. 11/28: Patient continues to have some improvement of the erythema to the leg. Patient continues to have mildly elevated liver function. Ultrasound shows hepatomegaly correlate for fatty infiltrated liver. Blood cultures show no growth after 72 hours. Urine culture shows strep agalactiae and escherichia coli. Pending culture and sensitivity. She was consulted by infectious disease , will continue IV antibiotic, pain control, Jozef wrap with Silvadene. Objective - Vital Signs Vital signs: Vital Signs Temp 97.1 F L 11/28/16 07:00 Pulse 85 11/28/16 07:00 Resp 16 11/28/16 07:00 BP 116/54 11/28/16 07:00 Pulse Ox 96 11/28/16 07:00 Intake & Output 11/27/16 11/28/16 11/28/16 18:59 06:59 18:59 Other: Voiding Method Toilet # Voids 2 1 1 - Exam Gen: This is a 51-year-old morbidly obese female. She is resting in bed and appears to be comfortable. HEENT: Head is atraumatic, normocephalic. Pupils equal, round. Sclerae is anicteric. NECK: Supple. No JVD. No lymphadenopathy. No thyromegaly. LUNGS: Clear to auscultation. No wheezes or rhonchi. No intercostal retractions. HEART: Regular rate and rhythm. No murmur. ABDOMEN: Soft. Bowel sounds are present. No masses. No tenderness. EXTREMITIES: Right lower extremity is noted to have edema along with erythema from the ankle to the knee with patchy areas of erythema into the groin area. Tender lymphadenopathy in the right groin. NEUROLOGICAL: Patient is awake, alert and oriented x3. Cranial nerves 2 through 12 are grossly intact. - Labs CBC & Chem 7: 11/28/16 07:58 11/28/16 07:58 Labs: Abnormal Lab Results - Last 24 Hours (Table) 11/28/16 11/28/16 Range/Units 07:58 07:58 Plt Count 92 L (150-450) k/uL AST 102 H (14-36) U/L ALT 122 H (9-52) U/L Alkaline Phosphatase 158 H (38-126) U/L Total Protein 5.8 L (6.3-8.2) g/dL Albumin 3.0 L (3.5-5.0) g/dL Microbiology - Last 24 Hours (Table) 11/24/16 20:56 Blood Culture - Preliminary Blood No Growth after 72 hours 11/24/16 20:56 Urine Culture - Final Urine,Voided Strep agalactiae - (group b) Escherichia coli Assessment and Plan Plan: Plan: 1. Right lower extremity cellulitis with ascending lymphangitis. Consult with Dr. Romo appreciated. Continue Silvadene wraps and elevation. Continue daptomycin and ceftriaxone. Continue Lasix 20 mg orally daily and Aldactone. 2. Chronic lower extremity edema with mild lymphedema. Continue as in #1. 3. Asthma, mild intermittent. Currently stable. Continue albuterol, Singulair. 4. ALLERGIC rhinitis. 5. Morbid obesity with BMI of 43. 6. Thrombocytopenia. Continue to monitor 7. DVT prophylaxis. Continue Lovenox. 8. Hypertension. Continue lisinopril and Aldactone. 9. Fatty liver with elevated liver function test 10. Headache. Fioricet added. The above impression and plan of care have been discussed and directed by signing physician. Renetta Maniaci nurse practitioner acting as scribe for signing physician.
[2016-11-28] MEDS: MONTELUKAST 10 MG TAB PO SCH (22:30)
[2016-11-28] MEDS: DAPTOmycin 500 MG in SODIUM CHLORIDE 0.9% 50 ML IV SCH (22:36)
--- NOTE | 2016-11-28 22:51 | P.PN ---
Subjective Principal diagnosis: cellulitis with lymphangitis right leg Pleasant 51-year-old female presents to the emergency center with a sudden onset of increasing pain erythema and tenderness to her right lower extremity. Was associated with the onset of significant myalgias as well as fever and chills and body aches. She has history of prior cellulitis of the right lower extremity. At that time it was thought due to some dermatophycosis. She's been trying to moisturize her skin. Timmy had the sudden onset of the pain and swelling to the right limb. With no antecedent trauma that she is aware of. Because she felt so poorly she presented emergency center where she was found have a temperature of 102.5. With this the infectious diseases consultation was requested. She relates that in the past her prior infection was E. coli. Patient now having minimal improvement. The erythema to the foot is improved. There has been no further increasing amount of the dense erythema on the lower leg. Some increased tenderness to the area ascending lymphangitis on the thigh. Still has distinct tenderness at the area of lymphadenopathy in the right groin. Her fever has resolved. Feels slightly better overall. Today the patient is still uncomfortable. There is still distinct tenderness especially as the anterior and posterior aspect of the calf. The ascending lymphangitis of the thigh is slightly improved. Objective - Vital Signs Vital signs: Vital Signs Temp 97.2 F L 11/28/16 15:00 Pulse 78 11/28/16 15:00 Resp 16 11/28/16 15:00 BP 121/70 11/28/16 15:00 Pulse Ox 96 11/28/16 15:00 Intake & Output 11/28/16 11/28/16 11/29/16 06:59 18:59 06:59 Intake Total 240 Balance 240 Intake: Oral 240 Other: # Voids 1 3 - Exam Abbey 51-year-old woman who suffers from obesity and is quite uncomfortable at this point in time. Complaining of pain to right lower extremity as well as fever. Did not have a significant improvement with Tylenol. HEENT: Anicteric conjunctiva are pink and moist nasal mucosa grossly intact without significant lesions, there is no thrush. Neck: The neck is supple without significant lymphadenopathy or thyromegaly. Lungs: Good bilateral air entry without significant crackles or wheezing. There is no significant bronchial sounds. There is no egophony or dullness. Heart: Regular rate and rhythm with an audible S1-S2, no S3 no S4. There is no significant murmur click or rub, PMI was nondisplaced. Abdomen: Positive bowel sounds soft and nontender without palpable masses or organomegaly. There was no guarding or rebound. Extremities: The upper extremities have excellent pulses they are symmetric, no significant petechiae or telangiectasia. No splinter hemorrhages were noted. The left lower extremity shows no evidence of any lesions. Skin is in good order without significant open lesions on the left leg. The right lower extremity shows evidence of swelling that's evident especially distally in the leg. The extensive erythema from the ankle proximal to the knee has worsened. From the knee to the groin the area of ascending lymphangitis is improved There is distinctly tender lymphadenopathy to the right groin. However slightly improved. No lymphadenopathy noted in other areas. Neuro: Awake alert oriented to person place and time. There are no acute new gross focal sensory motor deficits. - Labs CBC & Chem 7: 11/28/16 07:58 11/28/16 07:58 Labs: Abnormal Lab Results - Last 24 Hours (Table) 11/28/16 11/28/16 Range/Units 07:58 07:58 Plt Count 92 L (150-450) k/uL AST 102 H (14-36) U/L ALT 122 H (9-52) U/L Alkaline Phosphatase 158 H (38-126) U/L Total Protein 5.8 L (6.3-8.2) g/dL Albumin 3.0 L (3.5-5.0) g/dL Microbiology - Last 24 Hours (Table) 11/24/16 20:56 Blood Culture - Preliminary Blood No Growth after 72 hours Laboratory Results WBC 6.2 k/uL (3.8-10.6) 11/28/16 07:58 RBC 4.07 m/uL (3.80-5.40) 11/28/16 07:58 Hgb 11.9 gm/dL (11.4-16.0) 11/28/16 07:58 Hct 36.0 % (34.0-46.0) 11/28/16 07:58 MCV 88.5 fL (80.0-100.0) 11/28/16 07:58 MCH 29.1 pg (25.0-35.0) 11/28/16 07:58 MCHC 32.9 g/dL (31.0-37.0) 11/28/16 07:58 RDW 13.9 % (11.5-15.5) 11/28/16 07:58 Plt Count 92 k/uL (150-450) L 11/28/16 07:58 Neutrophils % Not Reportable 11/26/16 07:40 Neutrophils % (Manual) 71.5 % 11/26/16 07:40 Band Neutrophils % 17.0 % 11/26/16 07:40 Lymphocytes % Not Reportable 11/26/16 07:40 Lymphocytes % (Manual) 10.0 % 11/26/16 07:40 Monocytes % Not Reportable 11/26/16 07:40 Monocytes % (Manual) 1.0 % 11/26/16 07:40 Eosinophils % Not Reportable 11/26/16 07:40 Eosinophils % (Manual) 0.5 % 11/26/16 07:40 Basophils % Not Reportable 11/26/16 07:40 Neutrophils # Not Reportable 11/26/16 07:40 Neutrophils # (Manual) 3.8 k/uL (1.3-7.7) 11/26/16 07:40 Lymphocytes # Not Reportable 11/26/16 07:40 Lymphocytes # (Manual) 0.4 k/uL (1.0-4.8) L 11/26/16 07:40 Monocytes # Not Reportable 11/26/16 07:40 Monocytes # (Manual) 0.0 k/uL (0-1.0) 11/26/16 07:40 Eosinophils # Not Reportable 11/26/16 07:40 Eosinophils # (Manual) 0.0 k/uL (0-0.7) 11/26/16 07:40 Basophils # Not Reportable 11/26/16 07:40 Nucleated RBCs 0 /100 WBC (0-0) 11/26/16 07:40 Manual Slide Review Performed 11/26/16 07:40 Poikilocytosis (manual Present 11/26/16 07:40 PT 13.2 sec (9.0-12.0) H 11/24/16 20:56 INR 1.3 (<1.1) 11/24/16 20:56 APTT 31.2 sec (22.0-30.0) H 11/24/16 20:56 Sodium 143 mmol/L (137-145) 11/28/16 07:58 Potassium 4.0 mmol/L (3.5-5.1) 11/28/16 07:58 Chloride 107 mmol/L (98-107) 11/28/16 07:58 Carbon Dioxide 25 mmol/L (22-30) 11/28/16 07:58 Anion Gap 11 mmol/L 11/28/16 07:58 BUN 11 mg/dL (7-17) 11/28/16 07:58 Creatinine 0.57 mg/dL (0.52-1.04) 11/28/16 07:58 Est GFR (MDRD) Af Amer >60 (>60 ml/min/1.73 sqM) 11/28/16 07:58 Est GFR (MDRD) Non-Af >60 (>60 ml/min/1.73 sqM) 11/28/16 07:58 Glucose 98 mg/dL (74-99) 11/28/16 07:58 Plasma Lactic Acid Nick 1.9 mmol/L (0.7-2.0) 11/25/16 18:36 Calcium 8.6 mg/dL (8.4-10.2) 11/28/16 07:58 Phosphorus 2.7 mg/dL (2.5-4.5) 11/24/16 20:56 Magnesium 1.8 mg/dL (1.6-2.3) 11/24/16 20:56 Total Bilirubin 1.2 mg/dL (0.2-1.3) 11/28/16 07:58 AST 102 U/L (14-36) H 11/28/16 07:58 ALT 122 U/L (9-52) H 11/28/16 07:58 Alkaline Phosphatase 158 U/L (38-126) H 11/28/16 07:58 Total Creatine Kinase 76 U/L (30-135) 11/24/16 20:56 CK-MB (CK-2) 0.9 ng/mL (0.0-2.4) 11/24/16 20:56 CK-MB (CK-2) Rel Index 1.2 11/24/16 20:56 Total Protein 5.8 g/dL (6.3-8.2) L 11/28/16 07:58 Albumin 3.0 g/dL (3.5-5.0) L 11/28/16 07:58 Urine Color [place] 11/24/16 20:56 Urine Appearance Cloudy (Clear) H 11/24/16 20:56 Urine pH 6.0 (5.0-8.0) 11/24/16 20:56 Ur Specific [place] 1.037 (1.001-1.035) H 11/24/16 20:56 Urine Protein 2+ (Negative) H 11/24/16 20:56 Urine Glucose (UA) Trace (Negative) H 11/24/16 20:56 Urine Ketones Trace (Negative) H 11/24/16 20:56 Urine Blood Negative (Negative) 11/24/16 20:56 Urine Nitrite Negative (Negative) 11/24/16 20:56 Urine Bilirubin 1+ (Negative) H 11/24/16 20:56 Urine Urobilinogen 6.0 mg/dL (<2.0) 11/24/16 20:56 Ur Leukocyte Esterase Trace (Negative) H 11/24/16 20:56 Urine RBC 2 /hpf (0-5) 11/24/16 20:56 Urine WBC 8 /hpf (0-5) H 11/24/16 20:56 Ur Squamous Epith Cells 4 /hpf (0-4) 11/24/16 20:56 Urine Mucus Many /hpf (None) H 11/24/16 20:56 Hepatitis A IgM Ab NEGATIVE 11/26/16 07:40 Hep Bs Antigen Negative 11/26/16 07:40 Hep B Core IgM Ab NEGATIVE 11/26/16 07:40 Hep C IgG Ab Negative (Negative) 11/26/16 07:40 Microbiology 11/24/16 20:56 Blood Blood Culture - Preliminary No Growth after 72 hours 11/24/16 20:56 Urine,Voided Urine Culture - Final Strep agalactiae - (group b) Escherichia coli Assessment and Plan (1) Cellulitis of right lower extremity Narrative/Plan: 51-year-old female who suffers from obesity presents to the emergency center with the onset high-grade fever chills malaise and myalgia. She had the sudden onset of some swelling and erythema and intense pain to the right lower extremity. There is no evidence of any deep venous thrombosis by the duplex scan. Significant reactive lymphadenopathy to the right groin was noted. Patient has evidence of a prior history of E. coli infection to her skin. This is somewhat unusual. The may have had exposures. Current situation looks more like a staphylococcal or streptococcal infection with the ascending lymphangitis. We'll enhance antibiotic therapy until we have data from vancomycin to daptomycin. Ceftriaxone will be continued so that there is coverage for gram- negative infection. Silvadene wrap is added. She is up-to-date with her tetanus vaccine. Multivitamin is added. Elevation limit rest is important area For fever control has been achieved with the naproxen Patient's leg is worsened today. The erythema has increased. There is increased tenderness. However no new bullous lesions are seen. The ascending lymphangitis forcibly has improved a bit but still has some tender lymphadenopathy of the right groin. Does not seem to be responding well to current antibiotic therapy of Rocephin and daptomycin. This will be changed to Ceftaroline. We'll monitor the response. If improve the next 24-48 hours and hopefully can complete a course of oral antibiotic therapy. paper machine tender lymphadenopathy to We'll continue antibiotic therapy, pain control and elevation in Silvadene wrap. Expect improvement in 48 hours. Status: Acute (2) Sepsis affecting skin Status: Acute (3) Fever Status: Acute (4) Leukocytosis Status: Acute (5) Acute lymphangitis of leg, except foot Status: Acute
[2016-11-28] MEDS: CEFTAROLINE FOSAMIL 600 MG in SODIUM CHLORIDE 0.9% 250 ML IVPB SCH (23:43)
[2016-11-29 08:20] LABS: Basophils % (A) 0 %; Eosinophils # (A) 0.1 k/uL (0-0.7); Eosinophils % (A) 2 %; HCT 34.3 % (34.0-46.0); HDW 2.71; HGB 10.9 gm/dL (11.4-16.0); Luc # (Auto) 0.09; Luc % (Auto) 2; Lymphocytes # (A) 0.7 k/uL (1.0-4.8); Lymphocytes % (A) 12 %; MCH 28.9 pg (25.0-35.0); MCHC 31.8 g/dL (31.0-37.0); Mean Platelet Volume 9.5; Monocytes # (A) 0.3 k/uL (0-1.0); Monocytes % (A) 5 %; Neutrophils % (A) 80 %; RBC 3.77 m/uL (3.80-5.40); RDW 14.1 % (11.5-15.5); WBC 6.2 k/uL (3.8-10.6); WBC (Perox) 6.76
[2016-11-29 08:42] LABS: ALT 105 U/L (9-52); AST 78 U/L (14-36); Alkaline Phosphatase 175 U/L (38-126); Anion Gap 9 mmol/L; Blood Urea Nitrogen 15 mg/dL (7-17); Calcium 8.3 mg/dL (8.4-10.2); Carbon Dioxide 27 mmol/L (22-30); Chloride 108 mmol/L (98-107); Glucose 95 mg/dL (74-99); Non-African American GFR(MDRD) >60 (>60 ml/min/1.73 sqM); Potassium 3.8 mmol/L (3.5-5.1); Sodium 144 mmol/L (137-145); Total Bilirubin 0.9 mg/dL (0.2-1.3); Total Protein 5.6 g/dL (6.3-8.2)
[2016-11-29] MEDS: LISINOPRIL 2.5 MG TAB PO SCH (08:58)
[2016-11-29] MEDS: FUROSEMIDE 20 MG TAB PO SCH (08:58)
[2016-11-29] MEDS: SPIRONOLACTONE 25 MG TAB PO SCH (08:58)
[2016-11-29] MEDS: NAPROXEN 250 MG TAB PO SCH ×3 (08:58→21:35)
[2016-11-29] MEDS: ENOXAPARIN 40 MG/0.4 ML SYRINGE SQ SCH (08:59)
[2016-11-29] MEDS: CEFTAROLINE FOSAMIL 600 MG in SODIUM CHLORIDE 0.9% 250 ML IVPB SCH ×2 (08:59→20:07)
[2016-11-29] MEDS: MULTIVITAMINS, THERA 1 EACH TAB PO SCH (11:53)
[2016-11-29] MEDS: SILVER sulfADIAZINE Cream 400 GM 1 APPLIC APPLIC TOPICAL SCH ×2 (11:53→20:09)
--- NOTE | 2016-11-29 12:16 | P.PN ---
Subjective 11/27: This is a 51-year-old female patient of Dr. Jose Francisco lopez with a past medical history of right lower extremity cellulitis 5 years ago positive for abscess and drainage with E. coli, hypertension, asthma. Patient gives history that starting on she was feeling fine. All of a sudden at night she developed fever and chills with sweating and pain in her right lower extremity similar to the pain that she had 5 years ago. On Sunday morning she was getting ready for work but noticed there was very painful with weightbearing on the right lower extremity as well as swelling and redness and hot to touch. Patient came into [facility] emergency center where she was placed on vancomycin and Rocephin and admitted to the [facility] floor. Ultrasound was negative for DVT She was febrile with a temperature of 102.5. She has been followed by general surgeon and Dr. Romo. She is noted to have some improvement of the erythema to the foot but continues to have significant tenderness in the right groin area. She has been afebrile. Noted mild elevation of liver function tests for which ultrasound was ordered showing hepatomegaly correlate for fatty infiltration of the liver. Acute hepatitis panel is negative. Patient is complaining of headache for which Fioricet was added. 11/28: Patient continues to have some improvement of the erythema to the leg. Patient continues to have mildly elevated liver function. Ultrasound shows hepatomegaly correlate for fatty infiltrated liver. Blood cultures show no growth after 72 hours. Urine culture shows strep agalactiae and escherichia coli. Pending culture and sensitivity. She was consulted by infectious disease , will continue IV antibiotic, pain control, Jozef wrap with Silvadene. 11/28: Erythema to the foot has improved, she continues to have erythema to the lower leg. She is still having some tenderness. The patient was consulted by Dr. Romo. Recommendations are to continue with antibiotic therapy, continue with Silvadene and Jozef wrap. Patient to continue Ceftaroline IV. Liver enzymes still mildly elevated. Urine culture shows sensitivity to current antibiotic she is receiving. Objective - Vital Signs Vital signs: Vital Signs Temp 96.2 F L 11/29/16 07:00 Pulse 71 11/29/16 07:00 Resp 16 11/29/16 07:00 BP 134/64 11/29/16 07:00 Pulse Ox 96 11/29/16 07:00 Intake & Output 11/28/16 11/29/16 11/29/16 18:59 06:59 18:59 Intake Total 240 Balance 240 Intake: Oral 240 Other: # Voids 3 1 - Exam Gen: This is a 51-year-old morbidly obese female. She is resting in bed and appears to be comfortable. HEENT: Head is atraumatic, normocephalic. Pupils equal, round. Sclerae is anicteric. NECK: Supple. No JVD. No lymphadenopathy. No thyromegaly. LUNGS: Clear to auscultation. No wheezes or rhonchi. No intercostal retractions. HEART: Regular rate and rhythm. No murmur. ABDOMEN: Soft. Bowel sounds are present. No masses. No tenderness. EXTREMITIES: Right lower extremity is noted to have edema along with erythema from the ankle to the knee with patchy areas of erythema into the groin area. Tender lymphadenopathy in the right groin. NEUROLOGICAL: Patient is awake, alert and oriented x3. Cranial nerves 2 through 12 are grossly intact. - Labs CBC & Chem 7: 11/29/16 07:47 11/29/16 07:47 Labs: Abnormal Lab Results - Last 24 Hours (Table) 11/29/16 11/29/16 Range/Units 07:47 07:47 RBC 3.77 L (3.80-5.40) m/uL Hgb 10.9 L (11.4-16.0) gm/dL Plt Count 113 L (150-450) k/uL Lymphocytes # 0.7 L (1.0-4.8) k/uL Chloride 108 H (98-107) mmol/L Calcium 8.3 L (8.4-10.2) mg/dL AST 78 H (14-36) U/L ALT 105 H (9-52) U/L Alkaline Phosphatase 175 H (38-126) U/L Total Protein 5.6 L (6.3-8.2) g/dL Albumin 2.8 L (3.5-5.0) g/dL Microbiology - Last 24 Hours (Table) 11/24/16 20:56 Blood Culture - Preliminary Blood No Growth after 96 hours Assessment and Plan Plan: Plan: 1. Right lower extremity cellulitis with ascending lymphangitis. Consult with Dr. Romo appreciated. Continue Silvadene wraps and elevation. Continue Ceftaroline. Continue Lasix 20 mg orally daily and Aldactone. 2. Chronic lower extremity edema with mild lymphedema. Continue as in #1. 3. Asthma, mild intermittent. Currently stable. Continue albuterol, Singulair. 4. ALLERGIC rhinitis. 5. Morbid obesity with BMI of 43. 6. Thrombocytopenia. Continue to monitor 7. DVT prophylaxis. Continue Lovenox. 8. Hypertension. Continue lisinopril and Aldactone. 9. Fatty liver with elevated liver function test 10. Headache. Fioricet added. The above impression and plan of care have been discussed and directed by signing physician. Renetta Middleton nurse practitioner acting as scribe for signing physician.
[2016-11-29] MEDS: BUTALB/APAP/CAFF 50-325-40MG TAB PO PRN (13:12)
[2016-11-29] MEDS: HYDROcodone/APAP 7.5-325MG 1 EACH TAB PO PRN (15:18)
[2016-11-29] MEDS: MONTELUKAST 10 MG TAB PO SCH (20:07)
--- NOTE | 2016-11-29 21:08 | P.PN ---
Subjective Principal diagnosis: cellulitis with lymphangitis right leg Abbey 51-year-old female presents to the emergency center with a sudden onset of increasing pain erythema and tenderness to her right lower extremity. Was associated with the onset of significant myalgias as well as fever and chills and body aches. She has history of prior cellulitis of the right lower extremity. At that time it was thought due to some dermatophycosis. She's been trying to moisturize her skin. Timmy had the sudden onset of the pain and swelling to the right limb. With no antecedent trauma that she is aware of. Because she felt so poorly she presented emergency center where she was found have a temperature of 102.5. With this the infectious diseases consultation was requested. She relates that in the past her prior infection was E. coli. Patient now having minimal improvement. The erythema to the foot is improved. There has been no further increasing amount of the dense erythema on the lower leg. Some increased tenderness to the area ascending lymphangitis on the thigh. Still has distinct tenderness at the area of lymphadenopathy in the right groin. Her fever has resolved. Feels slightly better overall. Today the patient is feeling slightly better ,pain has improved. There is still distinct tenderness especially as the posterior aspect of the calf. The ascending lymphangitis of the thigh is resolved. Lymphadenitis improved. Fever improved. Objective - Vital Signs Vital signs: Vital Signs Temp 97.6 F 11/29/16 14:40 Pulse 80 11/29/16 16:00 Resp 16 11/29/16 16:00 BP 123/58 11/29/16 14:40 Pulse Ox 100 11/29/16 19:41 Intake & Output 11/29/16 11/29/16 11/30/16 06:59 18:59 06:59 Intake Total 240 Balance 240 Intake: Oral 240 Other: Voiding Method Toilet # Voids 1 1 - Exam Abbey 51-year-old woman who suffers from obesity and is quite uncomfortable at this point in time. Complaining of pain to right lower extremity as well as fever. Did not have a significant improvement with Tylenol. HEENT: Anicteric conjunctiva are pink and moist nasal mucosa grossly intact without significant lesions, there is no thrush. Neck: The neck is supple without significant lymphadenopathy or thyromegaly. Lungs: Good bilateral air entry without significant crackles or wheezing. There is no significant bronchial sounds. There is no egophony or dullness. Heart: Regular rate and rhythm with an audible S1-S2, no S3 no S4. There is no significant murmur click or rub, PMI was nondisplaced. Abdomen: Positive bowel sounds soft and nontender without palpable masses or organomegaly. There was no guarding or rebound. Extremities: The upper extremities have excellent pulses they are symmetric, no significant petechiae or telangiectasia. No splinter hemorrhages were noted. The left lower extremity shows no evidence of any lesions. Skin is in good order without significant open lesions on the left leg. The right lower anthony shows evidence of the improved edema from the last day. The very intense erythema circumferential on the calf is improved from yesterday. Still very tender into the posterior aspect. The anterior as well as lateral and medial tenderness is much improved. No ulcerations are seen. The ascending erythema on the calf has improved. The lymphangitis of the thigh is resolved. The distinctly tender lymphadenopathy to the right groin has generally resolved. No lymphadenopathy noted in other areas. Neuro: Awake alert oriented to person place and time. There are no acute new gross focal sensory motor deficits. - Labs CBC & Chem 7: 11/29/16 07:47 11/29/16 07:47 Labs: Abnormal Lab Results - Last 24 Hours (Table) 11/29/16 11/29/16 Range/Units 07:47 07:47 RBC 3.77 L (3.80-5.40) m/uL Hgb 10.9 L (11.4-16.0) gm/dL Plt Count 113 L (150-450) k/uL Lymphocytes # 0.7 L (1.0-4.8) k/uL Chloride 108 H (98-107) mmol/L Calcium 8.3 L (8.4-10.2) mg/dL AST 78 H (14-36) U/L ALT 105 H (9-52) U/L Alkaline Phosphatase 175 H (38-126) U/L Total Protein 5.6 L (6.3-8.2) g/dL Albumin 2.8 L (3.5-5.0) g/dL Microbiology - Last 24 Hours (Table) 11/24/16 20:56 Blood Culture - Preliminary Blood No Growth after 96 hours Laboratory Results WBC 6.2 k/uL (3.8-10.6) 11/29/16 07:47 RBC 3.77 m/uL (3.80-5.40) L 11/29/16 07:47 Hgb 10.9 gm/dL (11.4-16.0) L 11/29/16 07:47 Hct 34.3 % (34.0-46.0) 11/29/16 07:47 MCV 91.0 fL (80.0-100.0) 11/29/16 07:47 MCH 28.9 pg (25.0-35.0) 11/29/16 07:47 MCHC 31.8 g/dL (31.0-37.0) 11/29/16 07:47 RDW 14.1 % (11.5-15.5) 11/29/16 07:47 Plt Count 113 k/uL (150-450) L 11/29/16 07:47 Neutrophils % 80 % 11/29/16 07:47 Neutrophils % (Manual) 71.5 % 11/26/16 07:40 Band Neutrophils % 17.0 % 11/26/16 07:40 Lymphocytes % 12 % 11/29/16 07:47 Lymphocytes % (Manual) 10.0 % 11/26/16 07:40 Monocytes % 5 % 11/29/16 07:47 Monocytes % (Manual) 1.0 % 11/26/16 07:40 Eosinophils % 2 % 11/29/16 07:47 Eosinophils % (Manual) 0.5 % 11/26/16 07:40 Basophils % 0 % 11/29/16 07:47 Neutrophils # 5.0 k/uL (1.3-7.7) 11/29/16 07:47 Neutrophils # (Manual) 3.8 k/uL (1.3-7.7) 11/26/16 07:40 Lymphocytes # 0.7 k/uL (1.0-4.8) L 11/29/16 07:47 Lymphocytes # (Manual) 0.4 k/uL (1.0-4.8) L 11/26/16 07:40 Monocytes # 0.3 k/uL (0-1.0) 11/29/16 07:47 Monocytes # (Manual) 0.0 k/uL (0-1.0) 11/26/16 07:40 Eosinophils # 0.1 k/uL (0-0.7) 11/29/16 07:47 Eosinophils # (Manual) 0.0 k/uL (0-0.7) 11/26/16 07:40 Basophils # 0.0 k/uL (0-0.2) 11/29/16 07:47 Nucleated RBCs 0 /100 WBC (0-0) 11/26/16 07:40 Manual Slide Review Performed 11/26/16 07:40 Poikilocytosis (manual Present 11/26/16 07:40 PT 13.2 sec (9.0-12.0) H 11/24/16 20:56 INR 1.3 (<1.1) 11/24/16 20:56 APTT 31.2 sec (22.0-30.0) H 11/24/16 20:56 Sodium 144 mmol/L (137-145) 11/29/16 07:47 Potassium 3.8 mmol/L (3.5-5.1) 11/29/16 07:47 Chloride 108 mmol/L (98-107) H 11/29/16 07:47 Carbon Dioxide 27 mmol/L (22-30) 11/29/16 07:47 Anion Gap 9 mmol/L 11/29/16 07:47 BUN 15 mg/dL (7-17) 11/29/16 07:47 Creatinine 0.60 mg/dL (0.52-1.04) 11/29/16 07:47 Est GFR (MDRD) Af Amer >60 (>60 ml/min/1.73 sqM) 11/29/16 07:47 Est GFR (MDRD) Non-Af >60 (>60 ml/min/1.73 sqM) 11/29/16 07:47 Glucose 95 mg/dL (74-99) 11/29/16 07:47 Plasma Lactic Acid Nick 1.9 mmol/L (0.7-2.0) 11/25/16 18:36 Calcium 8.3 mg/dL (8.4-10.2) L 11/29/16 07:47 Phosphorus 2.7 mg/dL (2.5-4.5) 11/24/16 20:56 Magnesium 1.8 mg/dL (1.6-2.3) 11/24/16 20:56 Total Bilirubin 0.9 mg/dL (0.2-1.3) 11/29/16 07:47 AST 78 U/L (14-36) H 11/29/16 07:47 ALT 105 U/L (9-52) H 11/29/16 07:47 Alkaline Phosphatase 175 U/L (38-126) H 11/29/16 07:47 Total Creatine Kinase 76 U/L (30-135) 11/24/16 20:56 CK-MB (CK-2) 0.9 ng/mL (0.0-2.4) 11/24/16 20:56 CK-MB (CK-2) Rel Index 1.2 11/24/16 20:56 Total Protein 5.6 g/dL (6.3-8.2) L 11/29/16 07:47 Albumin 2.8 g/dL (3.5-5.0) L 11/29/16 07:47 Urine Color [place] 11/24/16 20:56 Urine Appearance Cloudy (Clear) H 11/24/16 20:56 Urine pH 6.0 (5.0-8.0) 11/24/16 20:56 Ur Specific [place] 1.037 (1.001-1.035) H 11/24/16 20:56 Urine Protein 2+ (Negative) H 11/24/16 20:56 Urine Glucose (UA) Trace (Negative) H 11/24/16 20:56 Urine Ketones Trace (Negative) H 11/24/16 20:56 Urine Blood Negative (Negative) 11/24/16 20:56 Urine Nitrite Negative (Negative) 11/24/16 20:56 Urine Bilirubin 1+ (Negative) H 11/24/16 20:56 Urine Urobilinogen 6.0 mg/dL (<2.0) 11/24/16 20:56 Ur Leukocyte Esterase Trace (Negative) H 11/24/16 20:56 Urine RBC 2 /hpf (0-5) 11/24/16 20:56 Urine WBC 8 /hpf (0-5) H 11/24/16 20:56 Ur Squamous Epith Cells 4 /hpf (0-4) 11/24/16 20:56 Urine Mucus Many /hpf (None) H 11/24/16 20:56 Hepatitis A IgM Ab NEGATIVE 11/26/16 07:40 Hep Bs Antigen Negative 11/26/16 07:40 Hep B Core IgM Ab NEGATIVE 11/26/16 07:40 Hep C IgG Ab Negative (Negative) 11/26/16 07:40 Microbiology 11/24/16 20:56 Blood Blood Culture - Preliminary No Growth after 96 hours 11/24/16 20:56 Urine,Voided Urine Culture - Final Strep agalactiae - (group b) Escherichia coli Assessment and Plan (1) Cellulitis of right lower extremity Narrative/Plan: 51-year-old female who suffers from obesity presents to the emergency center with the onset high-grade fever chills malaise and myalgia. She had the sudden onset of some swelling and erythema and intense pain to the right lower extremity. There is no evidence of any deep venous thrombosis by the duplex scan. Significant reactive lymphadenopathy to the right groin was noted. Patient has evidence of a prior history of E. coli infection to her skin. This is somewhat unusual. The may have had exposures. Current situation looks more like a staphylococcal or streptococcal infection with the ascending lymphangitis. We'll enhance antibiotic therapy until we have data from vancomycin to daptomycin. Ceftriaxone will be continued so that there is coverage for gram- negative infection. Silvadene wrap is added. She is up-to-date with her tetanus vaccine. Multivitamin is added. Elevation limit rest is important area For fever control has been achieved with the naproxen Patient's leg is worsened today. The erythema has increased. There is increased tenderness. However no new bullous lesions are seen. The ascending lymphangitis forcibly has improved a bit but still has some tender lymphadenopathy of the right groin. Does not seem to be responding well to current antibiotic therapy of Rocephin and daptomycin. This was changed to Ceftaroline. There has now been some improvement overnight. We'll plan another 24 hours of the cefepime. She be able to transition to oral antibiotic therapy to complete her course of therapy coupled with on going compressive therapy at home as well as elevation. Patient does not desire outpatient intravenous antibiotic therapy. Status: Acute (2) Sepsis affecting skin Status: Acute (3) Fever Status: Acute (4) Leukocytosis Status: Acute (5) Acute lymphangitis of leg, except foot Status: Acute
[2016-11-30] MEDS: HYDROcodone/APAP 7.5-325MG 1 EACH TAB PO PRN ×2 (00:38→16:41)
[2016-11-30 07:32] VITALS: RESP 16
[2016-11-30] MEDS: SPIRONOLACTONE 25 MG TAB PO SCH (07:46)
[2016-11-30] MEDS: FUROSEMIDE 20 MG TAB PO SCH (07:46)
[2016-11-30] MEDS: LISINOPRIL 2.5 MG TAB PO SCH (07:46)
[2016-11-30] MEDS: NAPROXEN 250 MG TAB PO SCH ×3 (07:46→20:23)
[2016-11-30] MEDS: BUTALB/APAP/CAFF 50-325-40MG TAB PO PRN (07:46)
[2016-11-30] MEDS: CEFTAROLINE FOSAMIL 600 MG in SODIUM CHLORIDE 0.9% 250 ML IVPB SCH ×2 (07:47→20:17)
[2016-11-30] MEDS: ENOXAPARIN 40 MG/0.4 ML SYRINGE SQ SCH (07:47)
--- NOTE | 2016-11-30 08:25 | P.PN ---
Subjective 11/27: This is a 51-year-old female patient of Dr. Jose Francisco lopez with a past medical history of right lower extremity cellulitis 5 years ago positive for abscess and drainage with E. coli, hypertension, asthma. Patient gives history that starting on she was feeling fine. All of a sudden at night she developed fever and chills with sweating and pain in her right lower extremity similar to the pain that she had 5 years ago. On Sunday morning she was getting ready for work but noticed there was very painful with weightbearing on the right lower extremity as well as swelling and redness and hot to touch. Patient came into [facility] emergency center where she was placed on vancomycin and Rocephin and admitted to the [facility] floor. Ultrasound was negative for DVT She was febrile with a temperature of 102.5. She has been followed by general surgeon and Dr. Romo. She is noted to have some improvement of the erythema to the foot but continues to have significant tenderness in the right groin area. She has been afebrile. Noted mild elevation of liver function tests for which ultrasound was ordered showing hepatomegaly correlate for fatty infiltration of the liver. Acute hepatitis panel is negative. Patient is complaining of headache for which Fioricet was added. 11/28: Patient continues to have some improvement of the erythema to the leg. Patient continues to have mildly elevated liver function. Ultrasound shows hepatomegaly correlate for fatty infiltrated liver. Blood cultures show no growth after 72 hours. Urine culture shows strep agalactiae and escherichia coli. Pending culture and sensitivity. She was consulted by infectious disease , will continue IV antibiotic, pain control, Jozef wrap with Silvadene. 11/29: Erythema to the foot has improved, she continues to have erythema to the lower leg. She is still having some tenderness. The patient was consulted by Dr. Romo. Recommendations are to continue with antibiotic therapy, continue with Silvadene and Jozef wrap. Patient to continue Ceftaroline IV. Liver enzymes still mildly elevated. Urine culture shows sensitivity to current antibiotic she is receiving. 11/30: Lymphangitis has improved with IV Ceftaroline. Blood cultures still show no growth, the patient remains afebrile. Per Dr. Romo recommendation patient to continue another 24 hours of Ceftraoline and then she can transition to oral antibiotics. She'll continue to have compressive therapy at home as well as elevation. Objective - Vital Signs Vital signs: Vital Signs Temp 97.1 F L 11/30/16 07:00 Pulse 74 11/30/16 07:00 Resp 16 11/30/16 07:00 BP 124/70 11/30/16 07:00 Pulse Ox 96 11/30/16 07:00 Intake & Output 11/29/16 11/30/16 11/30/16 18:59 06:59 18:59 Other: Voiding Method Toilet Toilet # Voids 1 2 - Exam Gen: This is a 51-year-old morbidly obese female. She is resting in bed and appears to be comfortable. HEENT: Head is atraumatic, normocephalic. Pupils equal, round. Sclerae is anicteric. NECK: Supple. No JVD. No lymphadenopathy. No thyromegaly. LUNGS: Clear to auscultation. No wheezes or rhonchi. No intercostal retractions. HEART: Regular rate and rhythm. No murmur. ABDOMEN: Soft. Bowel sounds are present. No masses. No tenderness. EXTREMITIES: Right lower extremity is noted to have edema along with erythema from the ankle to the knee with patchy areas of erythema into the groin area. Tender lymphadenopathy in the right groin. NEUROLOGICAL: Patient is awake, alert and oriented x3. Cranial nerves 2 through 12 are grossly intact. - Labs CBC & Chem 7: 11/29/16 07:47 11/29/16 07:47 Labs: Abnormal Lab Results - Last 24 Hours (Table) 11/29/16 11/29/16 Range/Units 07:47 07:47 RBC 3.77 L (3.80-5.40) m/uL Hgb 10.9 L (11.4-16.0) gm/dL Plt Count 113 L (150-450) k/uL Lymphocytes # 0.7 L (1.0-4.8) k/uL Chloride 108 H (98-107) mmol/L Calcium 8.3 L (8.4-10.2) mg/dL AST 78 H (14-36) U/L ALT 105 H (9-52) U/L Alkaline Phosphatase 175 H (38-126) U/L Total Protein 5.6 L (6.3-8.2) g/dL Albumin 2.8 L (3.5-5.0) g/dL Microbiology - Last 24 Hours (Table) 11/24/16 20:56 Blood Culture - Preliminary Blood No Growth after 120 hours Assessment and Plan Plan: Plan: 1. Right lower extremity cellulitis with ascending lymphangitis. Consult with Dr. Romo appreciated. Continue Silvadene wraps and elevation. Continue Ceftaroline, will be discharged on oral antibiotics. Continue Lasix 20 mg orally daily and Aldactone. 2. Chronic lower extremity edema with mild lymphedema. Continue as in #1. 3. Asthma, mild intermittent. Currently stable. Continue albuterol, Singulair. 4. ALLERGIC rhinitis. 5. Morbid obesity with BMI of 43. 6. Thrombocytopenia. Continue to monitor 7. DVT prophylaxis. Continue Lovenox. 8. Hypertension. Continue lisinopril and Aldactone. 9. Fatty liver with elevated liver function test continue to monitor 10. Headache. Fioricet added.
[2016-11-30] MEDS: SILVER sulfADIAZINE Cream 400 GM 1 APPLIC APPLIC TOPICAL SCH ×2 (09:28→20:21)
[2016-11-30] MEDS: MULTIVITAMINS, THERA 1 EACH TAB PO SCH (12:18)
--- NOTE | 2016-11-30 12:18 | P.DS ---
Providers Date of admission: 11/24/16 20:13 Expected date of discharge: 11/30/16 Attending physician: Stephanie Griffith Consults: 11/25/16 08:58 Consult Physician Routine Consulting Provider: Kay Valdes Consult Reason/Comments: right leg cellulitis Do you want consulting provider notified?: Yes 11/25/16 13:25 Consult Physician Routine Consulting Provider: Dieter Austin Consult Reason/Comments: prominent right groin lymph node possibly biopsy Do you want consulting provider notified?: Yes Primary care physician: Jose Francisco Shi [facility] Course: 11/27: This is a 51-year-old female patient of Dr. Jose Francisco lopez with a past medical history of right lower extremity cellulitis 5 years ago positive for abscess and drainage with E. coli, hypertension, asthma. Patient gives history that starting on she was feeling fine. All of a sudden at night she developed fever and chills with sweating and pain in her right lower extremity similar to the pain that she had 5 years ago. On Sunday morning she was getting ready for work but noticed there was very painful with weightbearing on the right lower extremity as well as swelling and redness and hot to touch. Patient came into [facility] emergency center where she was placed on vancomycin and Rocephin and admitted to the [facility] floor. Ultrasound was negative for DVT She was febrile with a temperature of 102.5. She has been followed by general surgeon and Dr. Romo. She is noted to have some improvement of the erythema to the foot but continues to have significant tenderness in the right groin area. She has been afebrile. Noted mild elevation of liver function tests for which ultrasound was ordered showing hepatomegaly correlate for fatty infiltration of the liver. Acute hepatitis panel is negative. Patient is complaining of headache for which Fioricet was added. 11/28: Patient continues to have some improvement of the erythema to the leg. Patient continues to have mildly elevated liver function. Ultrasound shows hepatomegaly correlate for fatty infiltrated liver. Blood cultures show no growth after 72 hours. Urine culture shows strep agalactiae and escherichia coli. Pending culture and sensitivity. She was consulted by infectious disease , will continue IV antibiotic, pain control, Jozef wrap with Silvadene. 11/29: Erythema to the foot has improved, she continues to have erythema to the lower leg. She is still having some tenderness. The patient was consulted by Dr. Romo. Recommendations are to continue with antibiotic therapy, continue with Silvadene and Jozef wrap. Patient to continue Ceftaroline IV. Liver enzymes still mildly elevated. Urine culture shows sensitivity to current antibiotic she is receiving. 11/30: Lymphangitis has improved with IV Ceftaroline. Blood cultures still show no growth, the patient remains afebrile. Per Dr. Romo recommendation patient to continue another 24 hours of Ceftraoline and then she can transition to oral antibiotics. She'll continue to have compressive therapy at home as well as elevation. Discharge Diagnoses: 1. Right lower extremity cellulitis with ascending lymphangitis. 2. Chronic lower extremity edema with mild lymphedema. 3. Asthma, mild intermittent. 4. ALLERGIC rhinitis. 5. Morbid obesity with BMI of 43. 6. Thrombocytopenia. 7. DVT prophylaxis. 8. Hypertension. 9. Fatty liver with elevated liver function test 10. Headache. Fioricet added. The above impression and plan of care have been discussed and directed by signing physician. Renetta Middleton nurse practitioner acting as scribe for signing physician. Patient Condition at Discharge: Good Plan - Discharge Summary New Discharge Prescriptions: New Acetaminophen Tab [Tylenol] 650 mg PO Q6HR PRN tab PRN Reason: Fever and/ or Mild Pain diphenhydrAMINE [Benadryl] 25 mg PO QID PRN cap PRN Reason: Itching HYDROcodone/APAP 7.5-325MG [[place] 7.5-325] 1 each PO Q6HR PRN #20 tab PRN Reason: Moderate Pain Naproxen [Naprosyn] 500 mg PO TID tab SILVER sulfADIAZINE Cream [Silvadene Cream] 1 applic TOPICAL BID #400 gm Continue Multivitamins, Thera [Multivitamin (formulary)] 1 tab PO DAILY Montelukast [Singulair] 10 mg PO HS Glucosamine/Chondr Florez A Sod [Osteo Bi-Flex Caplet] 1 tab PO DAILY Cetirizine HCl [Zyrtec] 10 mg PO DAILY Albuterol Inhaler [Ventolin Hfa Inhaler] 2 puff INHALATION RT-Q6H PRN PRN Reason: Shortness Of Breath Acetaminophen Tab [Tylenol] 650 mg PO Q6H PRN PRN Reason: Pain Spironolactone [Aldactone] 25 mg PO DAILY Lisinopril [Zestril] 2.5 mg PO DAILY Furosemide [Lasix] 20 mg PO DAILY Discharge Medication List Acetaminophen Tab [Tylenol] 650 mg PO Q6H PRN 11/24/16 [History] Albuterol Inhaler [Ventolin Hfa Inhaler] 2 puff INHALATION RT-Q6H PRN 11/24/16 [ History] Cetirizine HCl [Zyrtec] 10 mg PO DAILY 11/24/16 [History] Furosemide [Lasix] 20 mg PO DAILY 11/24/16 [History] Glucosamine/Chondr Florez A Sod [Osteo Bi-Flex Caplet] 1 tab PO DAILY 11/24/16 [ History] Lisinopril [Zestril] 2.5 mg PO DAILY 11/24/16 [History] Montelukast [Singulair] 10 mg PO HS 11/24/16 [History] Multivitamins, Thera [Multivitamin (formulary)] 1 tab PO DAILY 11/24/16 [History ] Spironolactone [Aldactone] 25 mg PO DAILY 11/24/16 [History] Acetaminophen Tab [Tylenol] 650 mg PO Q6HR PRN tab 11/30/16 [Rx] HYDROcodone/APAP 7.5-325MG [[place] 7.5-325] 1 each PO Q6HR PRN #20 tab 11/30/16 [ Rx] Naproxen [Naprosyn] 500 mg PO TID tab 11/30/16 [Rx] SILVER sulfADIAZINE Cream [Silvadene Cream] 1 applic TOPICAL BID #400 gm [Rx] diphenhydrAMINE [Benadryl] 25 mg PO QID PRN cap 11/30/16 [Rx] Follow up Appointment(s)/Referral(s): Alfredito Romo MD [STAFF PHYSICIAN] - 1 Week Jose Francisco Isabel MD [Primary Care Provider] - 1-2 days
[2016-11-30 15:09] VITALS: BP 133/65; PULSE 78; TEMP 98.5
[2016-11-30] MEDS: MONTELUKAST 10 MG TAB PO SCH (20:17)
== END 2016-11-30 22:00 | disposition home or self-care (01) | DRG 872 ==
LOC: EC 19:49 → 4MS4W 20:13
PROVIDERS: ADMIT Family Medicine; ATTEND Family Medicine
DX: A41.9 Sepsis, unspecified organism (principal); L03.115 Cellulitis of right lower limb; D69.6 Thrombocytopenia, unspecified; K76.0 Fatty (change of) liver, not elsewhere classified; E66.01 Morbid (severe) obesity due to excess calories; I10 Essential (primary) hypertension; J45.20 Mild intermittent asthma, uncomplicated; I89.0 Lymphedema, not elsewhere classified; J30.9 Allergic rhinitis, unspecified; R51 Headache; R59.0 Localized enlarged lymph nodes; R79.89 Other specified abnormal findings of blood chemistry; Z68.41 Body mass index [BMI] 40.0-44.9, adult; Z79.899 Other long term (current) drug therapy; Z88.6 Allergy status to analgesic agent
CPT/HCPCS: 36415; 71020; 76705; 80053; 80074; 81001; 82550; 82553; 83605; 83735; 84100; 85025; 85027; 85610; 85730; 87040; 87077; 87086; 87186; 93005; 94760; 96365; 96367; 96375; 99285

== ENCOUNTER 2018-11-28 19:59 | Inpatient (IN) | payer BC ==
[2018-11-28] MEDS ORDERED: SODIUM CHLORIDE 0.9% 1,000 ML IV STA (20:47)
--- NOTE | 2018-11-28 20:47 | ED ---
Dizziness HPI - General Chief Complaint: Dizziness Stated Complaint: Light headed, nausea, R leg pain Time Seen by Provider: 11/28/18 20:35 Source: patient, RN notes reviewed, old records reviewed Mode of arrival: ambulatory Limitations: no limitations - History of Present Illness Initial Comments: This is a 53-year-old female the ER for evaluation. She presents today for evaluation regards to ankle edema and swelling. Right lower extremity edema and swelling. Significant erythema and redness, pain. History of similar presentation. She also complains of fever and chills. Mild nausea no vomiting no other significant complaints. No sick contacts or travel history no prior history of DVT MD Complaint: other (RLE edema and swelling, redness) -: hour(s) History of Same: Yes History of Trauma: No Severity: moderate Improves With: sleep Associated Symptoms: diaphoresis, fever/chills, rash, weakness - Related Data Home Medications Medication Instructions Recorded Confirmed Albuterol Inhaler [Ventolin Hfa 2 puff INHALATION RT-Q6H PRN 11/24/16 11/28/18 Inhaler] Furosemide [Lasix] 20 mg PO DAILY 11/24/16 11/28/18 Lisinopril [Zestril] 2.5 mg PO DAILY 11/24/16 11/28/18 Montelukast [Singulair] 10 mg PO HS 11/24/16 11/28/18 Multivitamins, Thera [Multivitamin 1 tab PO DAILY 11/24/16 11/28/18 (formulary)] Spironolactone [Aldactone] 25 mg PO DAILY 11/24/16 11/28/18 Allergies Allergy/AdvReac Type Severity Reaction Status Date / Time ibuprofen Allergy Swelling Verified 11/28/18 22:28 Review of Systems ROS Statement: Those systems with pertinent positive or pertinent negative responses have been documented in the HPI. ROS Other: All systems not noted in ROS Statement are negative. Past Medical History Past Medical History: Asthma, Hypertension, Pneumonia Additional Past Medical History / Comment(s): Rt leg cellulitis 4 years ago with ecoli in the leg wounds. History of Any Multi-Drug Resistant Organisms: None Reported Past Surgical History: Section, Orthopedic Surgery Additional Past Surgical History / Comment(s): 3 right knee surgeries, Left shoulder surgery Past Anesthesia/Blood Transfusion Reactions: No Reported Reaction Past Psychological History: No Psychological Hx Reported Smoking Status: Never smoker Past Alcohol Use History: None Reported Past Drug Use History: None Reported General Exam - General Exam Comments Initial Comments: Significant right lower extremity edema and erythema with tenderness and redness ranging from ankle to knee circumferentially Limitations: no limitations General appearance: alert, in no apparent distress Head exam: Present: atraumatic, normocephalic, normal inspection Eye exam: Present: normal appearance, PERRL, EOMI. Absent: scleral icterus, conjunctival injection, periorbital swelling ENT exam: Present: normal exam, mucous membranes moist Neck exam: Present: normal inspection. Absent: tenderness, meningismus, lymphadenopathy Respiratory exam: Present: normal lung sounds bilaterally. Absent: respiratory distress, wheezes, rales, rhonchi, stridor Cardiovascular Exam: Present: regular rate, normal rhythm, normal heart sounds. Absent: systolic murmur, diastolic murmur, rubs, gallop, clicks GI/Abdominal exam: Present: soft, normal bowel sounds. Absent: distended, tenderness, guarding, rebound, rigid Extremities exam: Present: normal inspection, full ROM, normal capillary refill. Absent: tenderness, pedal edema, joint swelling, calf tenderness Back exam: Present: normal inspection Neurological exam: Present: alert, oriented X3, CN II-XII intact Psychiatric exam: Present: normal affect, normal mood Skin exam: Present: warm, dry, intact, normal color. Absent: rash Course Vital Signs 11/28/18 11/28/18 20:13 22:15 Temperature 99.0 F 99.8 F H Pulse Rate 94 82 Respiratory 18 16 Rate Blood Pressure 109/60 120/58 O2 Sat by Pulse 97 100 Oximetry - Reevaluation(s) Reevaluation #1: 11/28/18 23:26 Medical record is reviewed with history of similar presentation Reevaluation #2: 11/28/18 23:26 Patient with no symptomatically improvement currently EKG Findings - EKG Comments: EKG Findings:: EKG shows sinus rhythm 80, OR 146, QRS 80, QTC 452 Medical Decision Making - Medical Decision Making 53 female the ER with severe extremity pain and swelling and edema and erythema, history of same. Patient has significant sialitis and lymphangitis of right lower extremity will admit for IV antibiotics - Lab Data Result diagrams: 11/28/18 20:53 11/28/18 20:53 Lab Results 11/28/18 11/28/18 11/28/18 Range/Units 20:53 20:53 20:53 WBC 13.9 H (3.8-10.6) k/uL RBC 4.55 (3.80-5.40) m/uL Hgb 12.8 (11.4-16.0) gm/dL Hct 38.9 (34.0-46.0) % MCV 85.4 (80.0-100.0) fL MCH 28.2 (25.0-35.0) pg MCHC 33.0 (31.0-37.0) g/dL RDW 14.5 (11.5-15.5) % Plt Count 124 L (150-450) k/uL Neutrophils % 98 % Lymphocytes % 1 % Monocytes % 1 % Eosinophils % 0 % Basophils % 0 % Neutrophils # 13.6 H (1.3-7.7) k/uL Lymphocytes # 0.1 L (1.0-4.8) k/uL Monocytes # 0.1 (0-1.0) k/uL Eosinophils # 0.0 (0-0.7) k/uL Basophils # 0.0 (0-0.2) k/uL PT 10.9 (9.0-12.0) sec INR 1.0 (<1.2) APTT 30.2 H (22.0-30.0) sec D-Dimer 0.83 H (<0.60) mg/L FEU Sodium 140 (137-145) mmol/L Potassium 4.2 (3.5-5.1) mmol/L Chloride 104 (98-107) mmol/L Carbon Dioxide 27 (22-30) mmol/L Anion Gap 9 mmol/L BUN 17 (7-17) mg/dL Creatinine 0.69 (0.52-1.04) mg/dL Est GFR (CKD-EPI)AfAm >90 (>60 ml/min/1.73 sqM) Est GFR (CKD-EPI)NonAf >90 (>60 ml/min/1.73 sqM) Glucose 128 H (74-99) mg/dL Plasma Lactic Acid Nick (0.7-2.0) mmol/L Calcium 9.2 (8.4-10.2) mg/dL Phosphorus 3.3 (2.5-4.5) mg/dL Magnesium 1.7 (1.6-2.3) mg/dL Total Bilirubin 1.2 (0.2-1.3) mg/dL AST 40 H (14-36) U/L ALT 35 (9-52) U/L Alkaline Phosphatase 99 (38-126) U/L Creatine Kinase 172 H (30-135) U/L Troponin I (0.000-0.034) ng/mL NT-Pro-B Natriuret Pep pg/mL Total Protein 6.7 (6.3-8.2) g/dL Albumin 4.2 (3.5-5.0) g/dL Urine Color Urine Appearance (Clear) Urine pH (5.0-8.0) Ur Specific [place] (1.001-1.035) Urine Protein (Negative) Urine Glucose (UA) (Negative) Urine Ketones (Negative) Urine Blood (Negative) Urine Nitrite (Negative) Urine Bilirubin (Negative) Urine Urobilinogen (<2.0) mg/dL Ur Leukocyte Esterase (Negative) Urine RBC (0-5) /hpf Urine WBC (0-5) /hpf Ur Squamous Epith Cells (0-4) /hpf Urine Mucus (None) /hpf 11/28/18 11/28/18 11/28/18 Range/Units 20:53 20:53 20:53 WBC (3.8-10.6) k/uL RBC (3.80-5.40) m/uL Hgb (11.4-16.0) gm/dL Hct (34.0-46.0) % MCV (80.0-100.0) fL MCH (25.0-35.0) pg MCHC (31.0-37.0) g/dL RDW (11.5-15.5) % Plt Count (150-450) k/uL Neutrophils % % Lymphocytes % % Monocytes % % Eosinophils % % Basophils % % Neutrophils # (1.3-7.7) k/uL Lymphocytes # (1.0-4.8) k/uL Monocytes # (0-1.0) k/uL Eosinophils # (0-0.7) k/uL Basophils # (0-0.2) k/uL PT (9.0-12.0) sec INR (<1.2) APTT (22.0-30.0) sec D-Dimer (<0.60) mg/L FEU Sodium (137-145) mmol/L Potassium (3.5-5.1) mmol/L Chloride (98-107) mmol/L Carbon Dioxide (22-30) mmol/L Anion Gap mmol/L BUN (7-17) mg/dL Creatinine (0.52-1.04) mg/dL Est GFR (CKD-EPI)AfAm (>60 ml/min/1.73 sqM) Est GFR (CKD-EPI)NonAf (>60 ml/min/1.73 sqM) Glucose (74-99) mg/dL Plasma Lactic Acid Nick 1.3 (0.7-2.0) mmol/L Calcium (8.4-10.2) mg/dL Phosphorus (2.5-4.5) mg/dL Magnesium (1.6-2.3) mg/dL Total Bilirubin (0.2-1.3) mg/dL AST (14-36) U/L ALT (9-52) U/L Alkaline Phosphatase (38-126) U/L Creatine Kinase (30-135) U/L Troponin I <0.012 (0.000-0.034) ng/mL NT-Pro-B Natriuret Pep 1130 pg/mL Total Protein (6.3-8.2) g/dL Albumin (3.5-5.0) g/dL Urine Color Urine Appearance (Clear) Urine pH (5.0-8.0) Ur Specific [place] (1.001-1.035) Urine Protein (Negative) Urine Glucose (UA) (Negative) Urine Ketones (Negative) Urine Blood (Negative) Urine Nitrite (Negative) Urine Bilirubin (Negative) Urine Urobilinogen (<2.0) mg/dL Ur Leukocyte Esterase (Negative) Urine RBC (0-5) /hpf Urine WBC (0-5) /hpf Ur Squamous Epith Cells (0-4) /hpf Urine Mucus (None) /hpf 11/28/18 Range/Units 20:53 WBC (3.8-10.6) k/uL RBC (3.80-5.40) m/uL Hgb (11.4-16.0) gm/dL Hct (34.0-46.0) % MCV (80.0-100.0) fL MCH (25.0-35.0) pg MCHC (31.0-37.0) g/dL RDW (11.5-15.5) % Plt Count (150-450) k/uL Neutrophils % % Lymphocytes % % Monocytes % % Eosinophils % % Basophils % % Neutrophils # (1.3-7.7) k/uL Lymphocytes # (1.0-4.8) k/uL Monocytes # (0-1.0) k/uL Eosinophils # (0-0.7) k/uL Basophils # (0-0.2) k/uL PT (9.0-12.0) sec INR (<1.2) APTT (22.0-30.0) sec D-Dimer (<0.60) mg/L FEU Sodium (137-145) mmol/L Potassium (3.5-5.1) mmol/L Chloride (98-107) mmol/L Carbon Dioxide (22-30) mmol/L Anion Gap mmol/L BUN (7-17) mg/dL Creatinine (0.52-1.04) mg/dL Est GFR (CKD-EPI)AfAm (>60 ml/min/1.73 sqM) Est GFR (CKD-EPI)NonAf (>60 ml/min/1.73 sqM) Glucose (74-99) mg/dL Plasma Lactic Acid Nick (0.7-2.0) mmol/L Calcium (8.4-10.2) mg/dL Phosphorus (2.5-4.5) mg/dL Magnesium (1.6-2.3) mg/dL Total Bilirubin (0.2-1.3) mg/dL AST (14-36) U/L ALT (9-52) U/L Alkaline Phosphatase (38-126) U/L Creatine Kinase (30-135) U/L Troponin I (0.000-0.034) ng/mL NT-Pro-B Natriuret Pep pg/mL Total Protein (6.3-8.2) g/dL Albumin (3.5-5.0) g/dL Urine Color Yellow Urine Appearance Clear (Clear) Urine pH 7.0 (5.0-8.0) Ur Specific [place] 1.032 (1.001-1.035) Urine Protein Trace H (Negative) Urine Glucose (UA) Negative (Negative) Urine Ketones 2+ H (Negative) Urine Blood Negative (Negative) Urine Nitrite Negative (Negative) Urine Bilirubin Negative (Negative) Urine Urobilinogen 2.0 (<2.0) mg/dL Ur Leukocyte Esterase Moderate H (Negative) Urine RBC 2 (0-5) /hpf Urine WBC 8 H (0-5) /hpf Ur Squamous Epith Cells 1 (0-4) /hpf Urine Mucus Rare H (None) /hpf - Radiology Data Radiology results: report reviewed (Ultrasound right lower extremity is negative for DVT), image reviewed Disposition Clinical Impression: Cellulitis of right leg, Sepsis affecting skin, Leukocytosis, Fever, Acute lymphangitis of leg, except foot Disposition: ADMITTED IP TO THIS HOSP Condition: Fair Is patient prescribed a controlled substance at d/c from ED?: No Referrals: Jose Francisco Isabel MD [Primary Care Provider] - 1-2 days
[2018-11-28] MEDS ORDERED: VANCOMYCIN IV PER PHARMACY 1 EACH MISC MISCELLANE PRN (21:02)
[2018-11-28] MEDS ORDERED: MORPHINE SULFATE 4 MG/ML SYRINGE IVP STA (21:02)
[2018-11-28] MEDS ORDERED: MORPHINE SULFATE 4 MG/ML SYRINGE IVP PRN (21:02)
[2018-11-28] MEDS ORDERED: VANCOMYCIN 2,000 MG in SODIUM CHLORIDE 0.9% 500 ML 500 ML IVPB STA (21:06)
[2018-11-28 21:08] LABS: Appearance,Urine Clear (Clear); Bilirubin,Urine Negative (Negative); Blood,Urine Negative (Negative); Color,Urine Yellow; Glucose,Urine (UA) Negative (Negative); Ketones,Urine 2+ (Negative); Leukocyte Esterase,Urine Moderate (Negative); Mucus,Urine Rare /hpf; Nitrite,Urine Negative (Negative); Protein,Urine Trace (Negative); RBC,Urine 2 /hpf (0-5); Specific Gravity,Urine 1.032 (1.001-1.035); Squamous Epithelial Cell,Urine 1 /hpf (0-4); WBC,Urine 8 /hpf (0-5)
[2018-11-28 21:15] LABS: ALT 35 U/L (9-52); AST 40 U/L (14-36); African American GFR (CKD) >90 (>60 ml/min/1.73 sqM); Albumin 4.2 g/dL (3.5-5.0); Alkaline Phosphatase 99 U/L (38-126); Anion Gap 9 mmol/L; Blood Urea Nitrogen 17 mg/dL (7-17); Calcium 9.2 mg/dL (8.4-10.2); Carbon Dioxide 27 mmol/L (22-30); Chloride 104 mmol/L (98-107); Creatine Kinase 172 U/L (30-135); Glucose 128 mg/dL (74-99); Magnesium 1.7 mg/dL (1.6-2.3); Phosphorus 3.3 mg/dL (2.5-4.5); Potassium 4.2 mmol/L (3.5-5.1); Sodium 140 mmol/L (137-145); Total Bilirubin 1.2 mg/dL (0.2-1.3); Total Protein 6.7 g/dL (6.3-8.2)
[2018-11-28 21:18] LABS: Partial Thromboplastin Time 30.2 sec (22.0-30.0); Prothrombin Time 10.9 sec (9.0-12.0)
[2018-11-28 21:21] LABS: Basophils % (A) 0 %; D-Dimer 0.83 mg/L FEU (<0.60); Eosinophils % (A) 0 %; HCT 38.9 % (34.0-46.0); HGB 12.8 gm/dL (11.4-16.0); Lymphocytes # (A) 0.1 k/uL (1.0-4.8); Lymphocytes % (A) 1 %; MCH 28.2 pg (25.0-35.0); MCV 85.4 fL (80.0-100.0); Mean Platelet Volume 9.6; Monocytes # (A) 0.1 k/uL (0-1.0); Monocytes % (A) 1 %; Neutrophils # (A) 13.6 k/uL (1.3-7.7); Neutrophils % (A) 98 %; Platelet Count 124 k/uL (150-450); RBC 4.55 m/uL (3.80-5.40); RDW 14.5 % (11.5-15.5); WBC 13.9 k/uL (3.8-10.6)
[2018-11-28] MEDS ORDERED: ACETAMINOPHEN TAB 500 MG TAB PO STA (22:15)
--- NOTE | 2018-11-28 22:46 | US ---
EXAM: US Duplex Right Lower Extremity Veins CLINICAL HISTORY: Pain TECHNIQUE: Real-time duplex ultrasound scan of the right lower extremity veins integrating B-mode two-dimensional vascular structure, Doppler spectral analysis, color flow Doppler imaging and compression. COMPARISON: No relevant prior studies available. FINDINGS: Deep veins: No DVT in the visualized common femoral, femoral, proximal deep femoral or popliteal veins. The veins demonstrate normal color flow, are normally compressible, with normal phasic flow and/or augmentation response. Note that the proximal aspect of the right popliteal vein would not tolerate compression. Superficial veins: Unremarkable. No thrombus in the visualized great saphenous vein. Soft tissues: No acute findings. No popliteal cyst. Lymph nodes: Prominent lymph node within the right groin measuring up to 14 mm, likely reactive. IMPRESSION: No acute findings.
[2018-11-28] MEDS ORDERED: SODIUM CHLORIDE 0.9% 1,000 ML IV ONE (23:23)
[2018-11-29 01:47] VITALS: BMI 44.6
[2018-11-29] MEDS: ACETAMINOPHEN TAB 325 MG TAB PO PRN ×3 (06:25→21:10)
[2018-11-29] MEDS: ENOXAPARIN 40 MG/0.4 ML SYRINGE SQ SCH (07:15)
[2018-11-29] MEDS ORDERED: ALBUTEROL NEBULIZED 2.5 MG/3 ML INHALATION PRN (09:37)
[2018-11-29] MEDS ORDERED: SPIRONOLACTONE 25 MG TAB PO SCH (09:45)
[2018-11-29] MEDS: LISINOPRIL 2.5 MG TAB PO SCH (09:52)
[2018-11-29] MEDS: FUROSEMIDE 20 MG TAB PO SCH (09:52)
[2018-11-29] MEDS: MULTIVITAMINS, THERA 1 EACH TAB PO SCH (09:52)
[2018-11-29] MEDS ORDERED: VANCOMYCIN 1,750 MG in SODIUM CHLORIDE 0.9% 500 ML 500 ML IVPB SCH (11:00)
--- NOTE | 2018-11-29 16:30 | P.HPIM ---
History of Present Illness H&P Date: 11/29/18 53 years old female patient of Dr. Isabel presents with right lower extremity swelling that started yesterday morning associated with fever, chills, nausea and increased tiredness.patient has significant swelling associated with redness 3 times in the past in the same leg over years. She does not endorse any insect bite, diabetes, trauma, history of lymphedema. Patient vitals suggest a temp of 100.7 tachycardia 103 saturating well at 94 on room air. Labs evaluated suggested WBC of 13.9 hemoglobin 12.8, platelet 124 d-dimer was elevated. I venous Doppler which was negative for any blood clot. She got 1 dose of ceftriaxone and vancomycin in the ER. On evaluation this morning patie nt still feels tired endorses fever and chills. According to the patient's swelling has improved since yesterday. infectious disease is consulted.patient switched to cefazolin 2 g every 8 hours. Vancomycin and ceftriaxone appears to be strep B infections. Review of Systems Constitutional: endorses chills, endorses fever, endorses lethargy, endorsesmalaise, Denies poor appetite,endorsesweakness, Denies weight loss Eyes: denies decreased vision, denies diplopia, denies discharge, denies pain Ears: deny: decreased hearing Ears, nose, mouth and throat: Denies dental pain, Denies headache, Denies nasal discharge, Denies nose pain Cardiovascular: Denies chest pain, Denies decreased exercise tolerance, Denies edema, Denies high blood pressure, Denies irregular heart beat, Denies palpitations, Denies paroxysmal nocturnal dyspnea, Denies rapid heart beat, Denies shortness of breath Respiratory: Denies congestion, Denies cough, Denies cough with sputum, Denies dyspnea, Denies home oxygen, Denies wheezing Gastrointestinal: Denies abdominal pain, Denies change in bowel habits, Denies coffee ground emesis, Denies early satiety, Denies excessive gas, Denies heart burn, Denies hematemesis, Denies hematochezia, Denies loss of appetite, Denies nausea, Denies vomiting Genitourinary: Denies dysuria, Denies flank pain, Denies kidney stones, Denies menorrhagia, Denies urgency, Denies urinary frequency Musculoskeletal: Denies gait dysfunction, Denies limitation of motion, Denies morning stiffness, Denies muscle cramps Integumentary: endorses rash, Denies wounds, Denies brittle nails, Denies change in hair/nails, Denies darkening of skin Neurological: Denies balance difficulties, Denies change in speech, Denies double vision, Denies gait dysfunction, Denies loss of vision, Denies motor disturbance, Denies numbness, Denies paralysis, Denies paresthesias, Denies seizures Psychiatric: Denies anxiety, Denies depression Endocrine: Denies excessive sweating, Denies excessive thirst, Denies high blood sugars, Denies palpitations Hematologic/Lymphatic: Denies easy bruising, Denies lymphadenopathy Past Medical History Past Medical History: Asthma, Hypertension, Pneumonia Additional Past Medical History / Comment(s): Rt leg cellulitis 4 years ago with ecoli in the leg wounds; second episode two years ago History of Any Multi-Drug Resistant Organisms: None Reported Past Surgical History: Section, Orthopedic Surgery Additional Past Surgical History / Comment(s): 3 right knee surgeries, left shoulder surgery Past Anesthesia/Blood Transfusion Reactions: No Reported Reaction Past Psychological History: No Psychological Hx Reported Additional Psychological History / Comment(s): Lives alone. 2 cats. No travel. No trauma. No experience Smoking Status: Never smoker Past Alcohol Use History: None Reported Past Drug Use History: None Reported - Past Family History Mother Family Medical History: Asthma, Diabetes Mellitus, Hyperlipidemia Father History Unknown: Yes Family Medical History: No Reported History Additional Family Medical History / Comment(s): 2 half brothers, one half- brother of sudden heart attack at the age of 39 Medications and Allergies Home Medications Medication Instructions Recorded Confirmed Type Albuterol Inhaler [Ventolin Hfa 2 puff INHALATION RT-Q6H PRN 11/24/16 11/28/18 History Inhaler] Furosemide [Lasix] 20 mg PO DAILY 11/24/16 11/28/18 History Lisinopril [Zestril] 2.5 mg PO DAILY 11/24/16 11/28/18 History Montelukast [Singulair] 10 mg PO HS 11/24/16 11/28/18 History Multivitamins, Thera [Multivitamin 1 tab PO DAILY 11/24/16 11/28/18 History (formulary)] Spironolactone [Aldactone] 25 mg PO DAILY 11/24/16 11/28/18 History Allergies Allergy/AdvReac Type Severity Reaction Status Date / Time ibuprofen Allergy Swelling Verified 11/28/18 22:28 Physical Exam Vitals: Vital Signs Temp Pulse Pulse Resp BP BP Pulse Ox 11/29/18 14:42 99.2 F 104 H 16 107/50 94 L 11/29/18 06:46 100.7 F H 103 H 16 105/65 98 11/29/18 03:30 16 11/29/18 01:22 98.1 F 89 16 108/67 96 11/29/18 00:39 99.1 F 61 17 104/61 98 11/28/18 22:15 99.8 F H 82 16 120/58 100 11/28/18 20:13 99.0 F 94 18 109/60 97 Intake and Output 11/29/18 11/29/18 11/29/18 06:59 14:59 22:59 Intake Total 400 Balance 400 Intake: Oral 400 Other: # Voids 1 4 # Bowel Movements 1 - Constitutional General appearance: cooperative, no acute distress, obese - EENT Eyes: anicteric sclerae, PERRLA, normal appearance ENT: hearing grossly normal - Neck Neck: no lymphadenopathy, normal ROM, no other, no rigidity, no stridor, no thy romegaly - Respiratory Respiratory: bilateral: CTA, negative: diminished, dullness, rales, rhonchi - Cardiovascular Rhythm: regular Heart sounds: normal: S1, S2 Abnormal Heart Sounds: no systolic murmur, no diastolic murmur, no rub, no S3 Gallop, no S4 Gallop, no click, no other - Gastrointestinal General gastrointestinal: normal bowel sounds, soft - Integumentary Integumentary: significant a repeat low associated with swelling and warmth in the right lower extremity up to the knee. No open drainage site of blisters seen. Tender and warm to touch. - Neurologic Neurologic: CNII-XII intact - Musculoskeletal Musculoskeletal: gait normal, strength equal bilaterally - Psychiatric Psychiatric: A&O x's 3, appropriate affect Results CBC & Chem 7: 11/28/18 20:53 11/28/18 20:53 Labs: Abnormal Lab Results - Last 24 Hours (Table) 11/28/18 11/28/18 11/28/18 Range/Units 20:53 20:53 20:53 WBC 13.9 H (3.8-10.6) k/uL Plt Count 124 L (150-450) k/uL Neutrophils # 13.6 H (1.3-7.7) k/uL Lymphocytes # 0.1 L (1.0-4.8) k/uL APTT 30.2 H (22.0-30.0) sec D-Dimer 0.83 H (<0.60) mg/L FEU Glucose 128 H (74-99) mg/dL AST 40 H (14-36) U/L Creatine Kinase 172 H (30-135) U/L Urine Protein (Negative) Urine Ketones (Negative) Ur Leukocyte Esterase (Negative) Urine WBC (0-5) /hpf Urine Mucus (None) /hpf 11/28/18 Range/Units 20:53 WBC (3.8-10.6) k/uL Plt Count (150-450) k/uL Neutrophils # (1.3-7.7) k/uL Lymphocytes # (1.0-4.8) k/uL APTT (22.0-30.0) sec D-Dimer (<0.60) mg/L FEU Glucose (74-99) mg/dL AST (14-36) U/L Creatine Kinase (30-135) U/L Urine Protein Trace H (Negative) Urine Ketones 2+ H (Negative) Ur Leukocyte Esterase Moderate H (Negative) Urine WBC 8 H (0-5) /hpf Urine Mucus Rare H (None) /hpf Thrombosis Risk Factor Assmnt - DVT/VTE Prophylaxis DVT/VTE Prophylaxis: Pharmacologic Prophylaxis ordered - Choose All That Apply Any of the Below Risk Factors Present?: Yes Each Factor Represents 1 point: Age 41-60 years, Obesity (BMI >25), Swollen legs (current) Other Risk Factors: No Thrombosis Risk Factor Assessment Total Risk Factor Score: 3 Thrombosis Risk Factor Assessment Level: Moderate Risk Assessment and Plan Plan: #1 acute sepsis secondary to cellulitis of the right lower extremity. Sepsis: 2 g every 8 hours. Hold vancomycin hold ceftriaxone. Infectious disease consulted continue IV fluids at 100 mL/h #2 hypertension blood pressure controlled on lisinopril and Lasix. Hold Aldactone #3 history of asthma continue albuterol as needed #4 obesity patient advised on low cholesterol diet #5Code status full code #6 DVT prophylaxis with Lovenox 40 mg subcu daily
[2018-11-29] MEDS: ceFAZolin IN SWFI 2 GM/20 ML SYRINGE IVP SCH (16:59)
[2018-11-29] MEDS: MONTELUKAST 10 MG TAB PO SCH (21:45)
[2018-11-30] MEDS: ceFAZolin IN SWFI 2 GM/20 ML SYRINGE IVP SCH ×3 (01:01→15:26)
[2018-11-30] MEDS: ACETAMINOPHEN TAB 325 MG TAB PO PRN ×3 (04:34→19:13)
[2018-11-30] MEDS: MULTIVITAMINS, THERA 1 EACH TAB PO SCH (08:53)
[2018-11-30] MEDS: FUROSEMIDE 20 MG TAB PO SCH (08:54)
[2018-11-30] MEDS: ENOXAPARIN 40 MG/0.4 ML SYRINGE SQ SCH (08:54)
[2018-11-30] MEDS: LISINOPRIL 2.5 MG TAB PO SCH (08:54)
[2018-11-30 09:07] LABS: Basophils % (A) 0 %; Eosinophils % (A) 0 %; HGB 11.4 gm/dL (11.4-16.0); Lymphocytes # (A) 0.5 k/uL (1.0-4.8); Lymphocytes % (A) 6 %; MCH 28.6 pg (25.0-35.0); MCHC 32.6 g/dL (31.0-37.0); MCV 87.7 fL (80.0-100.0); Mean Platelet Volume 9.2; Monocytes # (A) 0.1 k/uL (0-1.0); Monocytes % (A) 1 %; Neutrophils % (A) 91 %; Platelet Count 103 k/uL (150-450); RBC 3.99 m/uL (3.80-5.40); WBC 7.7 k/uL (3.8-10.6)
[2018-11-30 09:21] LABS: African American GFR (CKD) >90 (>60 ml/min/1.73 sqM)
--- NOTE | 2018-11-30 13:08 | P.PN ---
Subjective Progress Note Date: 11/30/18 53 years old female patient of Dr. Isabel presents with right lower extremity swelling that started yesterday morning associated with fever, chills, nausea and increased tiredness.patient has significant swelling associated with redness 3 times in the past in the same leg over years. She does not endorse any insect bite, diabetes, trauma, history of lymphedema. Patient vitals suggest a temp of 100.7 tachycardia 103 saturating well at 94 on room air. Labs evaluated suggested WBC of 13.9 hemoglobin 12.8, platelet 124 d-dimer was elevated. I venous Doppler which was negative for any blood clot. She got 1 dose of ceftriaxone and vancomycin in the ER. On evaluation this morning patient still feels tired endorses fever and chills. According to the patient's swelling has improved since yesterday. infectious disease is consulted.patient switched to cefazolin 2 g every 8 hours. Vancomycin and ceftriaxone appears to be strep B infections. 11/30: Patient is resting in bed. Patient is complaining of the hardness of the bed. Patient states that the redness started approximately 2 days ago. She was febrile this morning at 101.6. At this time she is afebrile. Blood pressure 110/69, heart rate 100 pulse oxing 97% on room air. She did injure herself within the last week hitting her leg at work. Patient has history of cellulitis to the right leg previously. Patient denies any drainage or chills. Patient is tolerating antibiotics without any difficulties. WBC 7.7, hemoglobin 11.4, creatinine 0.7. Blood cultures are ordered and pending. No gross after 24 hours. Review of systems: Constitutional: endorses chills, endorses fever, endorses lethargy, endorsesmalaise, Denies poor appetite,endorsesweakness, Denies weight loss Eyes: denies decreased vision, denies diplopia, denies discharge, denies pain Ears: deny: decreased hearing Ears, nose, mouth and throat: Denies dental pain, Denies headache, Denies nasal discharge, Denies nose pain Cardiovascular: Denies chest pain, Denies decreased exercise tolerance, Denies edema, Denies high blood pressure, Denies irregular heart beat, Denies palpitations, Denies paroxysmal nocturnal dyspnea, Denies rapid heart beat, Denies shortness of breath Respiratory: Denies congestion, Denies cough, Denies cough with sputum, Denies dyspnea, Denies home oxygen, Denies wheezing Gastrointestinal: Denies abdominal pain, Denies change in bowel habits, Denies coffee ground emesis, Denies early satiety, Denies excessive gas, Denies heartburn, Denies hematemesis, Denies hematochezia, Denies loss of appetite, Denies nausea, Denies vomiting Genitourinary: Denies dysuria, Denies flank pain, Denies kidney stones, Denies menorrhagia, Denies urgency, Denies urinary frequency Musculoskeletal: Reports pain to right leg Denies gait dysfunction, Denies limitation of motion, Denies morning stiffness, Denies muscle cramps Integumentary: Reports rash, Denies wounds, Denies brittle nails, Denies change in hair/nails, Denies darkening of skin Neurological: Denies balance difficulties, Denies change in speech, Denies double vision, Denies gait dysfunction, Denies loss of vision, Denies motor disturbance, Denies numbness, Denies paralysis, Denies paresthesias, Denies seizures Psychiatric: Denies anxiety, Denies depression Endocrine: Denies excessive sweating, Denies excessive thirst, Denies high blood sugars, Denies palpitations Hematologic/Lymphatic: Denies easy bruising, Denies lymphadenopathy Objective - Vital Signs Vital signs: Vital Signs Temp 98.4 F 11/30/18 06:23 Pulse 104 H 11/30/18 04:30 Resp 16 11/30/18 04:30 BP 110/69 11/30/18 04:30 Pulse Ox 97 11/30/18 04:30 Intake & Output 11/29/18 11/30/18 11/30/18 18:59 06:59 18:59 Other: # Voids 4 1 # Bowel Movements 1 - Exam General Appearance: Alert, cooperative, no distress, appears stated age. Neck HEENT: Supple, no lymphadenopathy, no thyroid enlargement, no carotid bruits. Lungs: Clear to auscultation without crackles or wheezes no rhonchi, no deformity. Chest Wall: Chest wall normal expansion with deep inspiration no tenderness and no deformity was found on exam, no costochondral pain or discomfort. Heart: Regular rate and rhythm, S1, S2 normal, no murmur, rub or gallop. Back: Symmetric, no curvature, ROM normal, no CVA tenderness. Abdomen: Soft, non-tender, no rebound or rigidity, no hepatosplenomegaly. Extremities: Extremities normal, atraumatic, no cyanosis or edema. Pulses: 2+ and symmetric. Skin: Significant redness swelling and warmth to the right lower extremity from ankle to distal knee. No open drainage or blisters seen. Neurologic: Alert oriented x3 cranial nerves II through XII intact, no motor deficit, no abnormal balance or gait - Labs CBC & Chem 7: 11/30/18 08:28 11/30/18 08:28 Labs: Abnormal Lab Results - Last 24 Hours (Table) 11/29/18 11/29/18 11/30/18 Range/Units 16:48 16:48 08:28 Plt Count 103 L (150-450) k/uL Lymphocytes # 0.5 L (1.0-4.8) k/uL ESR 43 H (0-20) mm/hr C-Reactive Protein 311.5 H (<10.0) mg/L Microbiology - Last 24 Hours (Table) 11/28/18 21:17 Blood Culture - Preliminary Blood No Growth after 24 hours Assessment and Plan Plan: 1. acute sepsis secondary to cellulitis of the right lower extremity. Kefzol: 2 g every 8 hours. Hold vancomycin hold ceftriaxone. Infectious disease consulted continue IV fluids at 100 mL/h. Apply Silvadene to leg and wrap with Jozef wrap daily. Awaiting blood culture results 2. hypertension blood pressure controlled on lisinopril and Lasix. Hold Aldactone 3. history of asthma continue albuterol as needed, continue singular 10 mg 4. obesity patient advised on low cholesterol diet 5. DVT prophylaxis with Lovenox 40 mg subcu daily 6. GI prophylaxis. Pepcid 20 mg by mouth daily CODE STATUS: Full code Discharge plan: Minimal 2 nights day Impression and plan of care have been directed as dictated by the signing physician. Vika Veronica nurse practitioner acting as scribe for signing physician.
[2018-11-30] MEDS: MONTELUKAST 10 MG TAB PO SCH (21:45)
--- NOTE | 2018-11-30 22:58 | P.CONS ---
History of Present Illness - Reason for Consult Consult date: 11/30/18 Right lower extremity cellulitis Requesting physician: Esme Pennington - Chief Complaint Right leg swelling redness and pain 1 day - History of Present Illness Patient is a 53-year-old female with a past medical history significant for recurrent right lower extremity cellulitis and she was presenting to the ER at [facility] with the chief complaints of right leg swelling and redness along with a fever and chills for 1 days, the patient started having rigors and chills and noticed right leg became swollen and red and painful pain to the right leg is more of a dull aching to sharp about 5-6 out of 10 and no radiation swelling and redness has been mostly diffuse involving the whole right leg currently with no blister formation or any open wound leg is warm and tender to touch with the symptoms and the patient was evaluated by the ER physician patient did have a fever of 102F she was tachycardic white count elevated at 13,000 patient has been started on cefazolin admitted to the hospital infectious disease was consulted for further recomme ndation regarding antibiotic therapy Review of Systems CONSTITUTIONAL: Positive for weakness. Fever EYES: No complaint. ENT:No complaint. RESPIRATORY: No complaint. CARDIOVASCULAR: No complaint. GENITOURINARY: No complaint. GASTROINTESTINAL: No complaint. MUSCULOSKELETAL: No complaint. INTEGUMENTARY: As per history of present illness. PSYCHOLOGICAL: No complaint. ENDOCRINE: No complaint. NEUROLOGIC: No complaint. Past Medical History Past Medical History: Asthma, Hypertension, Pneumonia Additional Past Medical History / Comment(s): Rt leg cellulitis 4 years ago with ecoli in the leg wounds; second episode two years ago History of Any Multi-Drug Resistant Organisms: None Reported Past Surgical History: Section, Orthopedic Surgery Additional Past Surgical History / Comment(s): 3 right knee surgeries, left shoulder surgery Past Anesthesia/Blood Transfusion Reactions: No Reported Reaction Past Psychological History: No Psychological Hx Reported Additional Psychological History / Comment(s): Lives alone. 2 cats. No travel. No trauma. No experience Smoking Status: Never smoker Past Alcohol Use History: None Reported Past Drug Use History: None Reported - Past Family History Mother Family Medical History: Asthma, Diabetes Mellitus, Hyperlipidemia Father History Unknown: Yes Family Medical History: No Reported History Additional Family Medical History / Comment(s): 2 half brothers, one half-bro ther of sudden heart attack at the age of 39 Medications and Allergies Home Medications Medication Instructions Recorded Confirmed Type Albuterol Inhaler [Ventolin Hfa 2 puff INHALATION RT-Q6H PRN 11/24/16 11/28/18 History Inhaler] Furosemide [Lasix] 20 mg PO DAILY 11/24/16 11/28/18 History Lisinopril [Zestril] 2.5 mg PO DAILY 11/24/16 11/28/18 History Montelukast [Singulair] 10 mg PO HS 11/24/16 11/28/18 History Multivitamins, Thera [Multivitamin 1 tab PO DAILY 11/24/16 11/28/18 History (formulary)] Spironolactone [Aldactone] 25 mg PO DAILY 11/24/16 11/28/18 History Allergies Allergy/AdvReac Type Severity Reaction Status Date / Time ibuprofen Allergy Swelling Verified 11/28/18 22:28 Physical Exam Vitals: Vital Signs Temp Pulse Pulse Resp BP Pulse Ox 11/30/18 06:23 98.4 F 11/30/18 04:30 101.6 F H 104 H 16 110/69 97 11/29/18 23:29 99.2 F 11/29/18 21:48 100.7 F H 11/29/18 20:45 102.5 F H 105 H 16 110/69 96 11/29/18 14:42 99.2 F 104 H 16 107/50 94 L Intake and Output 11/29/18 11/30/18 11/30/18 22:59 06:59 14:59 Other: # Voids 1 GENERAL DESCRIPTION: Middle-aged female lying in bed, no distress. No tachypnea or accessory muscle of respiration use. HEENT: Shows Pallor , no scleral icterus. Oral mucous membrane is dry. No ph aryngeal erythema or thrush NECK: Trachea central, no thyromegaly. LUNGS: Unlabored breathing. Clear to auscultation anteriorly. No wheeze or crackle. HEART: S1, S2, regular rate and rhythm. No loud murmur ABDOMEN: Soft, no tenderness , guarding or rigidity, no organomegaly EXTREMITIES: Right leg with diffuse swelling and redness which is warm and tender to touch currently with no open wound or any drainage SKIN: No rash, no masses palpable. NEUROLOGICAL: The patient is awake, alert, oriented x3, mood and affect normal Results CBC & Chem 7: 11/30/18 08:28 11/30/18 08:28 Labs: Abnormal Lab Results - Last 24 Hours (Table) 11/29/18 11/29/18 11/30/18 Range/Units 16:48 16:48 08:28 Plt Count 103 L (150-450) k/uL Lymphocytes # 0.5 L (1.0-4.8) k/uL ESR 43 H (0-20) mm/hr C-Reactive Protein 311.5 H (<10.0) mg/L Microbiology - Last 24 Hours (Table) 11/28/18 21:17 Blood Culture - Preliminary Blood No Growth after 24 hours Assessment and Plan Assessment: 1-patient admitted hospital with sepsis in this patient who did have fever tachycardia and elevated white count source is extensive right lower extremity cellulitis in this patient with diffuse swelling redness likely streptococcal disease clinically doubt MRSA or gram-negative infection (1) Cellulitis of right lower extremity Current Visit: Yes Status: Acute Code(s): L03.115 - CELLULITIS OF RIGHT LOWER LIMB SNOMED Code(s): 805658803 (2) Sepsis affecting skin Current Visit: Yes Status: Acute Code(s): A41.9 - SEPSIS, UNSPECIFIED ORG ANISM SNOMED Code(s): 884884193 Plan: 1-cefazolin 2 g every 8 hours 2-we'll add clindamycin 900 every 8 hours in view of persistent low-grade fever 3-Jozef wrap to the right from just above the toe to below the knee we will follow up on clinical condition and cultures to further adjust medication if needed Thank you for this consultation will follow this patient along with you Time with Patient: Greater than 30
[2018-12-01] MEDS: ceFAZolin IN SWFI 2 GM/20 ML SYRINGE IVP SCH ×3 (01:07→17:02)
[2018-12-01] MEDS: CLINDAMYCIN 900 MG in DEXTROSE 5% IN WATER 50 ML IVPB SCH ×6 (01:07→17:02)
[2018-12-01] MEDS: ACETAMINOPHEN TAB 325 MG TAB PO PRN ×2 (01:24→11:06)
[2018-12-01] MEDS: MULTIVITAMINS, THERA 1 EACH TAB PO SCH (07:46)
[2018-12-01] MEDS: FAMOTIDINE 20 MG TAB PO SCH (07:46)
[2018-12-01] MEDS: FUROSEMIDE 20 MG TAB PO SCH (07:46)
[2018-12-01] MEDS: ENOXAPARIN 40 MG/0.4 ML SYRINGE SQ SCH (07:46)
[2018-12-01] MEDS: LISINOPRIL 2.5 MG TAB PO SCH (07:46)
[2018-12-01] MEDS: SILVER sulfADIAZINE Cream 400 GM 1 APPLIC APPLIC TOPICAL SCH (07:46)
[2018-12-01 08:01] LABS: Basophils % (A) 0 %; Eosinophils % (A) 0 %; HCT 32.1 % (34.0-46.0); HGB 10.7 gm/dL (11.4-16.0); Lymphocytes # (A) 0.5 k/uL (1.0-4.8); Lymphocytes % (A) 10 %; MCH 28.8 pg (25.0-35.0); MCHC 33.2 g/dL (31.0-37.0); MCV 86.6 fL (80.0-100.0); Mean Platelet Volume 9.9; Monocytes # (A) 0.2 k/uL (0-1.0); Monocytes % (A) 3 %; Neutrophils # (A) 4.1 k/uL (1.3-7.7); Neutrophils % (A) 83 %; RDW 14.6 % (11.5-15.5); WBC 4.9 k/uL (3.8-10.6)
[2018-12-01 09:22] LABS: Platelet Count 98 k/uL (150-450)
--- NOTE | 2018-12-01 09:59 | P.PN ---
Subjective Progress Note Date: 12/01/18 53 years old female patient of Dr. Isabel presents with right lower extremity swelling that started yesterday morning associated with fever, chills, nausea and increased tiredness.patient has significant swelling associated with redness 3 times in the past in the same leg over years. She does not endorse any insect bite, diabetes, trauma, history of lymphedema. Patient vitals suggest a temp of 100.7 tachycardia 103 saturating well at 94 on room air. Labs evaluated suggested WBC of 13.9 hemoglobin 12.8, platelet 124 d-dimer was elevated. I venous Doppler which was negative for any blood clot. She got 1 dose of ceftriaxone and vancomycin in the ER. On evaluation this morning patient still feels tired endorses fever and chills. According to the patient's swelling has improved since yesterday. infectious disease is consulted.patient switched to cefazolin 2 g every 8 hours. Vancomycin and ceftriaxone appears to be strep B infections. 11/30: Patient is resting in bed. Patient is complaining of the hardness of the bed. Patient states that the redness started approximately 2 days ago. She was febrile this morning at 101.6. At this time she is afebrile. Blood pressure 110/69, heart rate 100 pulse oxing 97% on room air. She did injure herself within the last week hitting her leg at work. Patient has history of cellulitis to the right leg previously. Patient denies any drainage or chills. Patient is tolerating antibiotics without any difficulties. WBC 7.7, hemoglobin 11.4, creatinine 0.7. Blood cultures are ordered and pending. No gross after 24 hours. 12/01: Patient is resting in bed feeling better than yesterday. Patient questing why aldactone was held. BUN/Creatinine WNL, will restart. Patient has been afebrile. Blood pressure 107/67, pulse rate 84, pulse oxing 97% on room air. Improvement is noted to the right lower extremity redness and edema. Blood cultures show no growth after 48 hours. Patient denies any abdominal discomfort or nausea vomiting or diarrhea at this time. Patient continues to have no drainage from the site. Review of systems: Constitutional: Denies chills, denies fever, denies lethargy, or malaise, Denies poor appetite,endorsesweakness, Denies weight loss Eyes: denies decreased vision, denies diplopia, denies discharge, denies pain Ears: deny: decreased hearing Ears, nose, mouth and throat: Denies dental pain, Denies headache, Denies nasal discharge, Denies nose pain Cardiovascular: Denies chest pain, Denies decreased exercise tolerance, Denies edema, Denies high blood pressure, Denies irregular heart beat, Denies palpitations, Denies paroxysmal nocturnal dyspnea, Denies rapid heart beat, Denies shortness of breath Respiratory: Denies congestion, Denies cough, Denies cough with sputum, Denies dyspnea, Denies home oxygen, Denies wheezing Gastrointestinal: Denies abdominal pain, Denies change in bowel habits, Denies coffee ground emesis, Denies early satiety, Denies excessive gas, Denies heartburn, Denies hematemesis, Denies hematochezia, Denies loss of appetite, Denies nausea, Denies vomiting Genitourinary: Denies dysuria, Denies flank pain, Denies kidney stones, Denies menorrhagia, Denies urgency, Denies urinary frequency Musculoskeletal: Reports pain to right leg Denies gait dysfunction, Denies limitation of motion, Denies morning stiffness, Denies muscle cramps Integumentary: Reports rash, Denies wounds, Denies brittle nails, Denies change in hair/nails, Denies darkening of skin Neurological: Denies balance difficulties, Denies change in speech, Denies double vision, Denies gait dysfunction, Denies loss of vision, Denies motor disturbance, Denies numbness, Denies paralysis, Denies paresthesias, Denies seizures Psychiatric: Denies anxiety, Denies depression Endocrine: Denies excessive sweating, Denies excessive thirst, Denies high blood sugars, Denies palpitations Hematologic/Lymphatic: Denies easy bruising, Denies lymphadenopathy Objective - Vital Signs Vital signs: Vital Signs Temp 98.5 F 12/01/18 04:53 Pulse 84 12/01/18 04:53 Resp 16 12/01/18 04:53 BP 107/67 12/01/18 04:53 Pulse Ox 97 12/01/18 04:53 Intake & Output 11/30/18 12/01/18 12/01/18 18:59 06:59 18:59 Other: Voiding Method Toilet # Voids 2 2 # Bowel Movements 1 - Exam General Appearance: Alert, cooperative, no distress, appears stated age. Neck HEENT: Supple, no lymphadenopathy, no thyroid enlargement, no carotid bruits. Lungs: Clear to auscultation without crackles or wheezes no rhonchi, no deformity. Chest Wall: Chest wall normal expansion with deep inspiration no tenderness and no deformity was found on exam, no costochondral pain or discomfort. Heart: Regular rate and rhythm, S1, S2 normal, no murmur, rub or gallop. Back: Symmetric, no curvature, ROM normal, no CVA tenderness. Abdomen: Soft, non-tender, no rebound or rigidity, no hepatosplenomegaly. Extremities: Extremities normal, atraumatic, no cyanosis or edema. Pulses: 2+ and symmetric. Skin: Redness decreased compared to yesterday,redness swelling and warmth to the right lower extremity from ankle to distal knee. No open drainage or blisters seen. Neurologic: Alert oriented x3 cranial nerves II through XII intact, no motor deficit, no abnormal balance or gait - Labs CBC & Chem 7: 12/01/18 07:24 11/30/18 08:28 Labs: Abnormal Lab Results - Last 24 Hours (Table) 12/01/18 Range/Units 07:24 RBC 3.70 L (3.80-5.40) m/uL Hgb 10.7 L (11.4-16.0) gm/dL Hct 32.1 L (34.0-46.0) % Plt Count 98 L (150-450) k/uL Lymphocytes # 0.5 L (1.0-4.8) k/uL Microbiology - Last 24 Hours (Table) 11/28/18 21:17 Blood Culture - Preliminary Blood No Growth after 48 hours Assessment and Plan Plan: 1. acute sepsis secondary to cellulitis of the right lower extremity. Kefzol: 2 g every 8 hours. Hold vancomycin hold ceftriaxone. Infectious disease appreciated. Clindamycin 900 mg every 8 hours, continue IV fluids at 100 mL/h. Apply Silvadene to leg and wrap with Jozef wrap daily. Awaiting blood culture results 2. hypertension blood pressure controlled on lisinopril, Aldactone and Lasix. 3. history of asthma continue albuterol as needed, continue singular 10 mg 4. obesity patient advised on low cholesterol diet 5. DVT prophylaxis with Lovenox 40 mg subcu daily 6. GI prophylaxis. Pepcid 20 mg by mouth daily CODE STATUS: Full code Discharge plan: Minimal 2 nights day Impression and plan of care have been directed as dictated by the signing physician. Vika Veronica nurse practitioner acting as scribe for signing physician.
[2018-12-01] MEDS: SPIRONOLACTONE 25 MG TAB PO SCH (10:57)
--- NOTE | 2018-12-01 12:34 | PN ---
PROGRESS NOTE DATE OF SERVICE: 12/01/2018 REASON FOR FOLLOWUP: Right lower extremity cellulitis. INTERVAL HISTORY: The patient is currently afebrile. The patient has been breathing comfortably. The patient denies having any chest pain. No shortness of breath or cough. No abdominal pain. Right leg swelling and redness slightly decreased. PHYSICAL EXAMINATION: Blood pressure 107/67, pulse of 84, temperature 98.5, T-max 99.7, she is 97% on room air. General description is a middle aged female lying in bed in no distress. Respiratory system: Unlabored breathing. Clear to auscultation anteriorly. Heart S1, S2. Regular rate and rhythm. ABDOMEN: Soft, no tenderness. Right leg is currently wrapped by the RN this morning. No worsening redness has been noticed. LABS: Hemoglobin is 10.7, white count 4.9. Blood culture negative so far. DIAGNOSTIC IMPRESSION AND PLAN: Patient with right lower extremity cellulitis in this patient who did have diffuse swelling and redness likely streptococcal disease. The patient is on cefazolin and Clinda to continue adjusting antibiotics based on clinical response. Continue supportive care. MMODL / IJN: [id number] /
[2018-12-01] MEDS: MONTELUKAST 10 MG TAB PO SCH (21:24)
[2018-12-02] MEDS: ceFAZolin IN SWFI 2 GM/20 ML SYRINGE IVP SCH ×3 (00:24→17:19)
[2018-12-02] MEDS: CLINDAMYCIN 900 MG in DEXTROSE 5% IN WATER 50 ML IVPB SCH ×6 (00:31→17:19)
[2018-12-02] MEDS: ACETAMINOPHEN TAB 325 MG TAB PO PRN ×3 (04:47→22:20)
[2018-12-02] MEDS: LISINOPRIL 2.5 MG TAB PO SCH (08:19)
[2018-12-02] MEDS: ENOXAPARIN 40 MG/0.4 ML SYRINGE SQ SCH (08:19)
[2018-12-02] MEDS: SPIRONOLACTONE 25 MG TAB PO SCH (08:20)
[2018-12-02] MEDS: MULTIVITAMINS, THERA 1 EACH TAB PO SCH (08:20)
[2018-12-02] MEDS: FUROSEMIDE 20 MG TAB PO SCH (08:20)
[2018-12-02] MEDS: FAMOTIDINE 20 MG TAB PO SCH (08:20)
[2018-12-02 09:40] LABS: Basophils % (A) 0 %; Eosinophils % (A) 1 %; HGB 10.2 gm/dL (11.4-16.0); Lymphocytes # (A) 0.8 k/uL (1.0-4.8); Lymphocytes % (A) 19 %; MCH 27.9 pg (25.0-35.0); MCV 87.1 fL (80.0-100.0); Mean Platelet Volume 9.6; Monocytes # (A) 0.2 k/uL (0-1.0); Monocytes % (A) 5 %; Neutrophils # (A) 2.9 k/uL (1.3-7.7); Neutrophils % (A) 72 %; Platelet Count 108 k/uL (150-450); RBC 3.67 m/uL (3.80-5.40)
--- NOTE | 2018-12-02 12:29 | P.PN ---
Subjective Progress Note Date: 12/02/18 53 years old female patient of Dr. Isabel presents with right lower extremity swelling that started yesterday morning associated with fever, chills, nausea and increased tiredness.patient has significant swelling associated with redness 3 times in the past in the same leg over years. She does not endorse any insect bite, diabetes, trauma, history of lymphedema. Patient vitals suggest a temp of 100.7 tachycardia 103 saturating well at 94 on room air. Labs evaluated suggested WBC of 13.9 hemoglobin 12.8, platelet 124 d-dimer was elevated. I venous Doppler which was negative for any blood clot. She got 1 dose of ceftriaxone and vancomycin in the ER. On evaluation this morning patient still feels tired endorses fever and chills. According to the patient's swelling has improved since yesterday. infectious disease is consulted.patient switched to cefazolin 2 g every 8 hours. Vancomycin and ceftriaxone appears to be strep B infections. 11/30: Patient is resting in bed. Patient is complaining of the hardness of the bed. Patient states that the redness started approximately 2 days ago. She was febrile this morning at 101.6. At this time she is afebrile. Blood pressure 110/69, heart rate 100 pulse oxing 97% on room air. She did injure herself within the last week hitting her leg at work. Patient has history of cellulitis to the right leg previously. Patient denies any drainage or chills. Patient is tolerating antibiotics without any difficulties. WBC 7.7, hemoglobin 11.4, creatinine 0.7. Blood cultures are ordered and pending. No gross after 24 hours. 12/01: Patient is resting in bed feeling better than yesterday. Patient questing why aldactone was held. BUN/Creatinine WNL, will restart. Patient has been afebrile. Blood pressure 107/67, pulse rate 84, pulse oxing 97% on room air. Improvement is noted to the right lower extremity redness and edema. Blood cultures show no growth after 48 hours. Patient denies any abdominal discomfort or nausea vomiting or diarrhea at this time. Patient continues to have no drainage from the site. 12/02: Patient continues to have significant redness of the right lower extremity with no blistering formation she denies any calf pain or tenderness, she continues to have no fever or chills she has no sore throat or difficulty swallowing, we'll continue with SSD 1% drops as well as IV antibiotic in the form of Kefzol and clindamycin. Review of systems: Constitutional: Denies chills, denies fever, denies lethargy, or malaise, Denies poor appetite,endorsesweakness, Denies weight loss Eyes: denies decreased vision, denies diplopia, denies discharge, denies pain Ears: deny: decreased hearing Ears, nose, mouth and throat: Denies dental pain, Denies headache, Denies nasal discharge, Denies nose pain Cardiovascular: Denies chest pain, Denies decreased exercise tolerance, Denies edema, Denies high blood pressure, Denies irregular heart beat, Denies palpitations, Denies paroxysmal nocturnal dyspnea, Denies rapid heart beat, Denies shortness of breath Respiratory: Denies congestion, Denies cough, Denies cough with sputum, Denies dyspnea, Denies home oxygen, Denies wheezing Gastrointestinal: Denies abdominal pain, Denies change in bowel habits, Denies coffee ground emesis, Denies early satiety, Denies excessive gas, Denies heartburn, Denies hematemesis, Denies hematochezia, Denies loss of appetite, Denies nausea, Denies vomiting Genitourinary: Denies dysuria, Denies flank pain, Denies kidney stones, Denies menorrhagia, Denies urgency, Denies urinary frequency Musculoskeletal: Reports pain to right leg Denies gait dysfunction, Denies limitation of motion, Denies morning stiffness, Denies muscle cramps Integumentary: Reports rash, Denies wounds, Denies brittle nails, Denies change in hair/nails, Denies darkening of skin Neurological: Denies balance difficulties, Denies change in speech, Denies double vision, Denies gait dysfunction, Denies loss of vision, Denies motor disturbance, Denies numbness, Denies paralysis, Denies paresthesias, Denies seizures Psychiatric: Denies anxiety, Denies depression Endocrine: Denies excessive sweating, Denies excessive thirst, Denies high blood sugars, Denies palpitations Hematologic/Lymphatic: Denies easy bruising, Denies lymphadenopathy Objective - Vital Signs Vital signs: Vital Signs Temp 98.5 F 12/02/18 05:15 Pulse 80 12/02/18 05:15 Resp 18 12/02/18 05:15 BP 104/59 12/02/18 05:15 Pulse Ox 98 12/02/18 05:15 Intake & Output 12/01/18 12/02/18 12/02/18 18:59 06:59 18:59 Intake Total 1000 Balance 1000 Intake: Oral 1000 Other: Voiding Method Toilet # Voids 3 2 # Bowel Movements 0 - Exam - Exam General Appearance: Alert, cooperative, no distress, appears stated age. Neck HEENT: Supple, no lymphadenopathy, no thyroid enlargement, no carotid bruits. Lungs: Clear to auscultation without crackles or wheezes no rhonchi, no deformity. Chest Wall: Chest wall normal expansion with deep inspiration no tenderness and no deformity was found on exam, no costochondral pain or discomfort. Heart: Regular rate and rhythm, S1, S2 normal, no murmur, rub or gallop. Back: Symmetric, no curvature, ROM normal, no CVA tenderness. Abdomen: Soft, non-tender, no rebound or rigidity, no hepatosplenomegaly. Extremities: Extremities normal, atraumatic, no cyanosis or edema. Pulses: 2+ and symmetric. Skin: Redness decreased compared to yesterday,redness swelling and warmth to the right lower extremity from ankle to distal knee. No open drainage or blisters seen. Neurologic: Alert oriented x3 cranial nerves II through XII intact, no motor deficit, no abnormal balance or gait - Labs CBC & Chem 7: 12/02/18 09:00 11/30/18 08:28 Labs: Abnormal Lab Results - Last 24 Hours (Table) 12/02/18 Range/Units 09:00 RBC 3.67 L (3.80-5.40) m/uL Hgb 10.2 L (11.4-16.0) gm/dL Hct 32.0 L (34.0-46.0) % Plt Count 108 L (150-450) k/uL Lymphocytes # 0.8 L (1.0-4.8) k/uL Microbiology - Last 24 Hours (Table) 11/28/18 21:17 Blood Culture - Preliminary Blood No Growth after 72 hours Assessment and Plan Assessment: Assessment and Plan Plan: 1. acute sepsis secondary to cellulitis of the right lower extremity. Kefzol: 2 g every 8 hours. Clindamycin 900 mg every 8 hours, continue IV fluids at 100 mL/h. Apply Silvadene to leg and wrap with Jozef wrap daily. Awaiting blood culture results 2. hypertension blood pressure controlled on lisinopril, Aldactone and Lasix. 3. history of asthma continue albuterol as needed, continue singular 10 mg 4. obesity patient advised on low cholesterol diet 5. DVT prophylaxis with Lovenox 40 mg subcu daily 6. GI prophylaxis. Pepcid 20 mg by mouth daily CODE STATUS: Full code
[2018-12-02] MEDS: SILVER sulfADIAZINE Cream 400 GM 1 APPLIC APPLIC TOPICAL SCH (14:46)
[2018-12-02] MEDS: MONTELUKAST 10 MG TAB PO SCH (20:26)
[2018-12-03] MEDS: ceFAZolin IN SWFI 2 GM/20 ML SYRINGE IVP SCH ×3 (01:29→16:36)
[2018-12-03] MEDS: CLINDAMYCIN 900 MG in DEXTROSE 5% IN WATER 50 ML IVPB SCH ×6 (01:34→16:35)
[2018-12-03] MEDS: ACETAMINOPHEN TAB 325 MG TAB PO PRN ×3 (05:23→19:59)
[2018-12-03] MEDS: ENOXAPARIN 40 MG/0.4 ML SYRINGE SQ SCH (08:14)
[2018-12-03] MEDS: LISINOPRIL 2.5 MG TAB PO SCH (08:14)
[2018-12-03] MEDS: FUROSEMIDE 20 MG TAB PO SCH (08:14)
[2018-12-03] MEDS: MULTIVITAMINS, THERA 1 EACH TAB PO SCH (08:14)
[2018-12-03] MEDS: FAMOTIDINE 20 MG TAB PO SCH (08:14)
[2018-12-03] MEDS: SPIRONOLACTONE 25 MG TAB PO SCH (08:14)
[2018-12-03 10:10] LABS: Basophils % (A) 0 %; Eosinophils # (A) 0.1 k/uL (0-0.7); Eosinophils % (A) 2 %; Lymphocytes # (A) 0.8 k/uL (1.0-4.8); Lymphocytes % (A) 17 %; MCH 27.8 pg (25.0-35.0); MCHC 32.1 g/dL (31.0-37.0); MCV 86.6 fL (80.0-100.0); Mean Platelet Volume 9.5; Monocytes # (A) 0.3 k/uL (0-1.0); Monocytes % (A) 6 %; Neutrophils # (A) 3.5 k/uL (1.3-7.7); Neutrophils % (A) 73 %; Platelet Count 128 k/uL (150-450); RBC 3.58 m/uL (3.80-5.40); RDW 14.1 % (11.5-15.5); WBC 4.9 k/uL (3.8-10.6)
--- NOTE | 2018-12-03 13:57 | PN ---
PROGRESS NOTE DATE OF SERVICE: 12/03/2018 REASON FOR FOLLOWUP: Right lower extremity cellulitis. INTERVAL HISTORY: The patient is currently afebrile. The patient has been breathing comfortably. Denies having any chest pain, shortness of breath or cough. No abdominal pain. Right leg swelling persists. Redness is slightly decreased. PHYSICAL EXAMINATION: Blood pressure is 125/54 with a pulse of 73, temperature 97.9. She is 98% on room air. General description is a middle-aged female, lying in bed in no distress. RESPIRATORY SYSTEM: Unlabored breathing, clear to auscultation anteriorly. HEART: S1, S2. Regular rate and rhythm. ABDOMEN: Soft, no tenderness. Right leg swelling persists, redness has slightly decreased. LABS: White count normal. Blood culture negative. DIAGNOSTIC IMPRESSION AND PLAN: Patient with extensive right lower extremity cellulitis. The patient at this time to continue with IV cefazolin and clindamycin along with Jozef wrap to keep the swelling down with the plan to switch to the oral antibiotics. Continue supportive care. MMODL / IJN: [id number] /
[2018-12-03] MEDS: SILVER sulfADIAZINE Cream 400 GM 1 APPLIC APPLIC TOPICAL SCH (16:37)
[2018-12-03] MEDS: MONTELUKAST 10 MG TAB PO SCH (20:00)
--- NOTE | 2018-12-03 22:04 | P.PN ---
Subjective Progress Note Date: 12/03/18 53 years old female patient of Dr. Isabel presents with right lower extremity swelling that started yesterday morning associated with fever, chills, nausea and increased tiredness.patient has significant swelling associated with redness 3 times in the past in the same leg over years. She does not endorse any insect bite, diabetes, trauma, history of lymphedema. Patient vitals suggest a temp of 100.7 tachycardia 103 saturating well at 94 on room air. Labs evaluated suggested WBC of 13.9 hemoglobin 12.8, platelet 124 d-dimer was elevated. I venous Doppler which was negative for any blood clot. She got 1 dose of ceftriaxone and vancomycin in the ER. On evaluation this morning patient still feels tired endorses fever and chills. According to the patient's swelling has improved since yesterday. infectious disease is consulted.patient switched to cefazolin 2 g every 8 hours. Vancomycin and ceftriaxone appears to be strep B infections. 11/30: Patient is resting in bed. Patient is complaining of the hardness of the bed. Patient states that the redness started approximately 2 days ago. She was febrile this morning at 101.6. At this time she is afebrile. Blood pressure 110/69, heart rate 100 pulse oxing 97% on room air. She did injure herself within the last week hitting her leg at work. Patient has history of cellulitis to the right leg previously. Patient denies any drainage or chills. Patient is tolerating antibiotics without any difficulties. WBC 7.7, hemoglobin 11.4, creatinine 0.7. Blood cultures are ordered and pending. No gross after 24 hours. 12/01: Patient is resting in bed feeling better than yesterday. Patient questing why aldactone was held. BUN/Creatinine WNL, will restart. Patient has been afebrile. Blood pressure 107/67, pulse rate 84, pulse oxing 97% on room air. Improvement is noted to the right lower extremity redness and edema. Blood cultures show no growth after 48 hours. Patient denies any abdominal discomfort or nausea vomiting or diarrhea at this time. Patient continues to have no drainage from the site. 12/02: Patient continues to have significant redness of the right lower extremity with no blistering formation she denies any calf pain or tenderness, she continues to have no fever or chills she has no sore throat or difficulty swallowing, we'll continue with SSD 1% drops as well as IV antibiotic in the form of Kefzol and clindamycin. 12/03: Patient is sitting up in bed in no apparent distress. She continues to have increased swelling and erythema of the right leg, she continues to be on clindamycin as well as Kefzol, continue Silvadene cream as well, continue to monitor the patient and follow very closely. Review of systems: Constitutional: Denies chills, denies fever, denies lethargy, or malaise, Denies poor appetite,endorsesweakness, Denies weight loss Eyes: denies decreased vision, denies diplopia, denies discharge, denies pain Ears: deny: decreased hearing Ears, nose, mouth and throat: Denies dental pain, Denies headache, Denies nasal discharge, Denies nose pain Cardiovascular: Denies chest pain, Denies decreased exercise tolerance, Denies edema, Denies high blood pressure, Denies irregular heart beat, Denies palpitations, Denies paroxysmal nocturnal dyspnea, Denies rapid heart beat, Denies shortness of breath Respiratory: Denies congestion, Denies cough, Denies cough with sputum, Denies dyspnea, Denies home oxygen, Denies wheezing Gastrointestinal: Denies abdominal pain, Denies change in bowel habits, Denies coffee ground emesis, Denies early satiety, Denies excessive gas, Denies heartburn, Denies hematemesis, Denies hematochezia, Denies loss of appetite, Denies nausea, Denies vomiting Genitourinary: Denies dysuria, Denies flank pain, Denies kidney stones, Denies menorrhagia, Denies urgency, Denies urinary frequency Musculoskeletal: Reports pain to right leg Denies gait dysfunction, Denies limitation of motion, Denies morning stiffness, Denies muscle cramps Integumentary: Reports rash, Denies wounds, Denies brittle nails, Denies change in hair/nails, Denies darkening of skin Neurological: Denies balance difficulties, Denies change in speech, Denies double vision, Denies gait dysfunction, Denies loss of vision, Denies motor disturbance, Denies numbness, Denies paralysis, Denies paresthesias, Denies seizures Psychiatric: Denies anxiety, Denies depression Endocrine: Denies excessive sweating, Denies excessive thirst, Denies high blood sugars, Denies palpitations Hematologic/Lymphatic: Denies easy bruising, Denies lymphadenopathy Objective - Vital Signs Vital signs: Vital Signs Temp 97.9 F 12/03/18 05:00 Pulse 73 12/03/18 05:00 Resp 20 12/03/18 08:00 BP 125/74 12/03/18 05:00 Pulse Ox 98 12/03/18 05:00 Intake & Output 12/02/18 12/03/18 12/03/18 18:59 06:59 18:59 Intake Total 300 Balance 300 Intake: Oral 300 Other: Voiding Method Toilet Toilet Toilet # Voids 6 1 # Bowel Movements 1 - Exam - Exam General Appearance: Alert, cooperative, no distress, appears stated age. Neck HEENT: Supple, no lymphadenopathy, no thyroid enlargement, no carotid bruits. Lungs: Clear to auscultation without crackles or wheezes no rhonchi, no deformity. Chest Wall: Chest wall normal expansion with deep inspiration no tenderness and no deformity was found on exam, no costochondral pain or discomfort. Heart: Regular rate and rhythm, S1, S2 normal, no murmur, rub or gallop. Back: Symmetric, no curvature, ROM normal, no CVA tenderness. Abdomen: Soft, non-tender, no rebound or rigidity, no hepatosplenomegaly. Extremities: Extremities normal, atraumatic, no cyanosis or edema. Pulses: 2+ and symmetric. Skin: Redness decreased compared to yesterday,redness swelling and warmth to the right lower extremity from ankle to distal knee. No open drainage or blisters seen. Neurologic: Alert oriented x3 cranial nerves II through XII intact, no motor de ficit, no abnormal balance or gait - Labs CBC & Chem 7: 12/03/18 09:42 11/30/18 08:28 Labs: Abnormal Lab Results - Last 24 Hours (Table) 12/03/18 Range/Units 09:42 RBC 3.58 L (3.80-5.40) m/uL Hgb 10.0 L (11.4-16.0) gm/dL Hct 31.0 L (34.0-46.0) % Plt Count 128 L (150-450) k/uL Lymphocytes # 0.8 L (1.0-4.8) k/uL Microbiology - Last 24 Hours (Table) 11/28/18 21:17 Blood Culture - Preliminary Blood No Growth after 96 hours Assessment and Plan Assessment: Assessment and Plan Plan: 1. acute sepsis secondary to cellulitis of the right lower extremity. Kefzol: 2 g every 8 hours. Clindamycin 900 mg every 8 hours, continue IV fluids at 100 mL/h. Apply Silvadene to leg and wrap with Jozef wrap daily. Slow improvement. 2. hypertension blood pressure controlled on lisinopril, Aldactone and Lasix. 3. history of asthma continue albuterol as needed, continue singular 10 mg 4. obesity patient advised on low cholesterol diet 5. DVT prophylaxis with Lovenox 40 mg subcu daily 6. GI prophylaxis. Pepcid 20 mg by mouth daily 7. Very slow improvement. 8. We will continue to monitor very closely.
[2018-12-04] MEDS: CLINDAMYCIN 900 MG in DEXTROSE 5% IN WATER 50 ML IVPB SCH ×6 (04:56→17:13)
[2018-12-04] MEDS: ceFAZolin IN SWFI 2 GM/20 ML SYRINGE IVP SCH ×3 (04:56→17:13)
[2018-12-04 10:05] LABS: Basophils % (A) 0 %; Eosinophils # (A) 0.1 k/uL (0-0.7); Eosinophils % (A) 1 %; HCT 31.5 % (34.0-46.0); Lymphocytes # (A) 0.8 k/uL (1.0-4.8); Lymphocytes % (A) 14 %; MCH 27.8 pg (25.0-35.0); MCHC 31.7 g/dL (31.0-37.0); MCV 87.8 fL (80.0-100.0); Mean Platelet Volume 8.9; Monocytes # (A) 0.3 k/uL (0-1.0); Monocytes % (A) 5 %; Neutrophils # (A) 4.2 k/uL (1.3-7.7); Neutrophils % (A) 78 %; Platelet Count 153 k/uL (150-450); RBC 3.59 m/uL (3.80-5.40); RDW 14.1 % (11.5-15.5); WBC 5.4 k/uL (3.8-10.6)
[2018-12-04 10:23] LABS: ALT 35 U/L (9-52); AST 42 U/L (14-36); African American GFR (CKD) >90 (>60 ml/min/1.73 sqM); Albumin 3.1 g/dL (3.5-5.0); Alkaline Phosphatase 95 U/L (38-126); Anion Gap 10 mmol/L; Blood Urea Nitrogen 12 mg/dL (7-17); Calcium 8.3 mg/dL (8.4-10.2); Carbon Dioxide 31 mmol/L (22-30); Chloride 102 mmol/L (98-107); Glucose 140 mg/dL (74-99); Potassium 3.5 mmol/L (3.5-5.1); Sodium 143 mmol/L (137-145); Total Bilirubin 0.5 mg/dL (0.2-1.3); Total Protein 5.7 g/dL (6.3-8.2)
[2018-12-04] MEDS: ENOXAPARIN 40 MG/0.4 ML SYRINGE SQ SCH (11:03)
[2018-12-04] MEDS: FUROSEMIDE 20 MG TAB PO SCH (11:04)
[2018-12-04] MEDS: SILVER sulfADIAZINE Cream 400 GM 1 APPLIC APPLIC TOPICAL SCH (11:04)
[2018-12-04] MEDS: FAMOTIDINE 20 MG TAB PO SCH (11:04)
[2018-12-04] MEDS: MULTIVITAMINS, THERA 1 EACH TAB PO SCH (11:04)
[2018-12-04] MEDS: SPIRONOLACTONE 25 MG TAB PO SCH (11:04)
[2018-12-04] MEDS: LISINOPRIL 2.5 MG TAB PO SCH (11:04)
[2018-12-04] MEDS: ACETAMINOPHEN TAB 325 MG TAB PO PRN ×2 (11:10→19:49)
--- NOTE | 2018-12-04 14:38 | P.PN ---
Subjective Progress Note Date: 12/04/18 53 years old female patient of Dr. Isabel presents with right lower extremity swelling that started yesterday morning associated with fever, chills, nausea and increased tiredness.patient has significant swelling associated with redness 3 times in the past in the same leg over years. She does not endorse any insect bite, diabetes, trauma, history of lymphedema. Patient vitals suggest a temp of 100.7 tachycardia 103 saturating well at 94 on room air. Labs evaluated suggested WBC of 13.9 hemoglobin 12.8, platelet 124 d-dimer was elevated. I venous Doppler which was negative for any blood clot. She got 1 dose of ceftriaxone and vancomycin in the ER. On evaluation this morning patient still feels tired endorses fever and chills. According to the patient's swelling has improved since yesterday. infectious disease is consulted.patient switched to cefazolin 2 g every 8 hours. Vancomycin and ceftriaxone appears to be strep B infections. 11/30: Patient is resting in bed. Patient is complaining of the hardness of the bed. Patient states that the redness started approximately 2 days ago. She was febrile this morning at 101.6. At this time she is afebrile. Blood pressure 110/69, heart rate 100 pulse oxing 97% on room air. She did injure herself within the last week hitting her leg at work. Patient has history of cellulitis to the right leg previously. Patient denies any drainage or chills. Patient is tolerating antibiotics without any difficulties. WBC 7.7, hemoglobin 11.4, creatinine 0.7. Blood cultures are ordered and pending. No gross after 24 hours. 12/01: Patient is resting in bed feeling better than yesterday. Patient questing why aldactone was held. BUN/Creatinine WNL, will restart. Patient has been afebrile. Blood pressure 107/67, pulse rate 84, pulse oxing 97% on room air. Improvement is noted to the right lower extremity redness and edema. Blood cultures show no growth after 48 hours. Patient denies any abdominal discomfort or nausea vomiting or diarrhea at this time. Patient continues to have no drainage from the site. 12/02: Patient continues to have significant redness of the right lower extremity with no blistering formation she denies any calf pain or tenderness, she continues to have no fever or chills she has no sore throat or difficulty swallowing, we'll continue with SSD 1% drops as well as IV antibiotic in the form of Kefzol and clindamycin. 12/03: Patient is sitting up in bed in no apparent distress. She continues to have increased swelling and erythema of the right leg, she continues to be on clindamycin as well as Kefzol, continue Silvadene cream as well, continue to monitor the patient and follow very closely. 12/04: Patient is feeling better today she continues to have erythema in the right lower extremity however is clearing up no calf tenderness, no fever or chills, no sore throat, no abdominal pain, nausea vomiting or diarrhea. Review of systems: Constitutional: Denies chills, denies fever, denies lethargy, or malaise, Denies poor appetite,endorsesweakness, Denies weight loss Eyes: denies decreased vision, denies diplopia, denies discharge, denies pain Ears: deny: decreased hearing Ears, nose, mouth and throat: Denies dental pain, Denies headache, Denies nasal discharge, Denies nose pain Cardiovascular: Denies chest pain, Denies decreased exercise tolerance, Denies edema, Denies high blood pressure, Denies irregular heart beat, Denies palpitations, Denies paroxysmal nocturnal dyspnea, Denies rapid heart beat, Denies shortness of breath Respiratory: Denies congestion, Denies cough, Denies cough with sputum, Denies dyspnea, Denies home oxygen, Denies wheezing Gastrointestinal: Denies abdominal pain, Denies change in bowel habits, Denies coffee ground emesis, Denies early satiety, Denies excessive gas, Denies heartburn, Denies hematemesis, Denies hematochezia, Denies loss of appetite, Denies nausea, Denies vomiting Genitourinary: Denies dysuria, Denies flank pain, Denies kidney stones, Denies menorrhagia, Denies urgency, Denies urinary frequency Musculoskeletal: Reports pain to right leg Denies gait dysfunction, Denies limitation of motion, Denies morning stiffness, Denies muscle cramps Integumentary: Reports rash, Denies wounds, Denies brittle nails, Denies change in hair/nails, Denies darkening of skin Neurological: Denies balance difficulties, Denies change in speech, Denies double vision, Denies gait dysfunction, Denies loss of vision, Denies motor disturbance, Denies numbness, Denies paralysis, Denies paresthesias, Denies seizures Psychiatric: Denies anxiety, Denies depression Endocrine: Denies excessive sweating, Denies excessive thirst, Denies high blood sugars, Denies palpitations Hematologic/Lymphatic: Denies easy bruising, Denies lymphadenopathy Objective - Vital Signs Vital signs: Vital Signs Temp 97.9 F 12/04/18 04:45 Pulse 79 12/04/18 04:45 Resp 20 12/04/18 04:45 BP 125/76 12/04/18 04:45 Pulse Ox 97 12/04/18 04:45 Intake & Output 12/03/18 12/04/18 12/04/18 18:59 06:59 18:59 Intake Total 300 Balance 300 Intake: Oral 300 Other: Voiding Method Toilet Toilet # Voids 3 1 - Exam - Exam General Appearance: Alert, cooperative, no distress, appears stated age. Neck HEENT: Supple, no lymphadenopathy, no thyroid enlargement, no carotid bruits. Lungs: Clear to auscultation without crackles or wheezes no rhonchi, no deformity. Chest Wall: Chest wall normal expansion with deep inspiration no tenderness and no deformity was found on exam, no costochondral pain or discomfort. Heart: Regular rate and rhythm, S1, S2 normal, no murmur, rub or gallop. Back: Symmetric, no curvature, ROM normal, no CVA tenderness. Abdomen: Soft, non-tender, no rebound or rigidity, no hepatosplenomegaly. Extremities: Extremities normal, atraumatic, no cyanosis or edema. Pulses: 2+ and symmetric. Skin: Redness decreased compared to yesterday,redness swelling and warmth to the right lower extremity from ankle to distal knee. No open drainage or blisters seen. Neurologic: Alert oriented x3 cranial nerves II through XII intact, no motor deficit, no abnormal balance or gait - Labs CBC & Chem 7: 12/04/18 09:14 12/04/18 09:14 Labs: Abnormal Lab Results - Last 24 Hours (Table) 12/04/18 12/04/18 Range/Units 09:14 09:14 RBC 3.59 L (3.80-5.40) m/uL Hgb 10.0 L (11.4-16.0) gm/dL Hct 31.5 L (34.0-46.0) % Lymphocytes # 0.8 L (1.0-4.8) k/uL Carbon Dioxide 31 H (22-30) mmol/L Glucose 140 H (74-99) mg/dL Calcium 8.3 L (8.4-10.2) mg/dL AST 42 H (14-36) U/L Total Protein 5.7 L (6.3-8.2) g/dL Albumin 3.1 L (3.5-5.0) g/dL Microbiology - Last 24 Hours (Table) 11/28/18 21:17 Blood Culture - Preliminary Blood No Growth after 120 hours Assessment and Plan Assessment: Assessment and Plan Plan: 1. acute sepsis secondary to cellulitis of the right lower extremity. Kefzol: 2 g every 8 hours. Clindamycin 900 mg every 8 hours, continue IV fluids at 100 mL/h. Apply Silvadene to leg and wrap with Jozef wrap daily. Slow improvement. 2. hypertension blood pressure controlled on lisinopril, Aldactone and Lasix. 3. history of asthma continue albuterol as needed, continue singular 10 mg 4. obesity patient advised on low cholesterol diet 5. DVT prophylaxis with Lovenox 40 mg subcu daily 6. GI prophylaxis. Pepcid 20 mg by mouth daily 7. Very slow improvement. 8. We will continue to monitor very closely. 9. Hopefully home in the next 1 or 2 days.
--- NOTE | 2018-12-04 18:29 | PN ---
PROGRESS NOTE DATE OF SERVICE: December 04, 2018 REASON FOR FOLLOW UP: Right lower extremity cellulitis. INTERVAL HISTORY: The patient is currently afebrile. The patient has been breathing comfortably. Denies having any chest pain. No cough. No abdominal pain. Overall pain to the right leg has improved. Some discomfort when she stands up. PHYSICAL EXAMINATION: Blood pressure 138/68, with a pulse of 73, temperature 98.1. She is 98% on room air. General description is a middle-aged female up in the bed in no distress. Respiratory system: Unlabored breathing. Clear to auscultation anteriorly. Heart S1, S2. Regular rate and rhythm. ABDOMEN: Soft, no tenderness. Right leg redness has improved. LABS: Hemoglobin is 10, white count 5.4, BUN of 12, creatinine 0.63. Blood culture has been negative. DIAGNOSTIC IMPRESSION AND PLAN: Patient with extensive right lower extremity cellulitis. The patient at this time to continue clindamycin for another 24 hours. Jozef wrap to keep the swelling down and hopefully therapy with oral antibiotics. Continue supportive care. MMODL / IJN: [id number] /
[2018-12-04] MEDS: MONTELUKAST 10 MG TAB PO SCH (19:49)
[2018-12-05 00:06] VITALS: RESP 16
[2018-12-05] MEDS: ceFAZolin IN SWFI 2 GM/20 ML SYRINGE IVP SCH ×2 (00:41→08:37)
[2018-12-05] MEDS: CLINDAMYCIN 900 MG in DEXTROSE 5% IN WATER 50 ML IVPB SCH ×4 (00:41→07:26)
[2018-12-05 05:51] VITALS: BP 120/72; PULSE 74; TEMP 98
[2018-12-05] MEDS: ENOXAPARIN 40 MG/0.4 ML SYRINGE SQ SCH (07:26)
[2018-12-05] MEDS: FUROSEMIDE 20 MG TAB PO SCH (07:27)
[2018-12-05] MEDS: LISINOPRIL 2.5 MG TAB PO SCH (07:27)
[2018-12-05] MEDS: MULTIVITAMINS, THERA 1 EACH TAB PO SCH (07:27)
[2018-12-05] MEDS: FAMOTIDINE 20 MG TAB PO SCH (07:27)
[2018-12-05] MEDS: SILVER sulfADIAZINE Cream 400 GM 1 APPLIC APPLIC TOPICAL SCH (07:27)
[2018-12-05] MEDS: SPIRONOLACTONE 25 MG TAB PO SCH (07:27)
--- NOTE | 2018-12-05 12:23 | PN ---
PROGRESS NOTE DATE OF SERVICE: 12/05/2018 REASON FOR FOLLOWUP: Right lower extremity cellulitis. INTERVAL HISTORY: The patient is currently afebrile. Patient is breathing comfortably. Overall pain and swelling to the right leg has decreased intensity: Currently no open wound and drainage. No nausea, no vomiting and no diarrhea with antibiotic therapy. PHYSICAL EXAMINATION: On examination, blood pressure is 120/72 with a pulse of 74, temperature 98. She is 97% on room air. General description is a middle-aged female up in the bed in no distress. RESPIRATORY SYSTEM: Unlabored breathing, clear to auscultation anteriorly. HEART: S1, S2. Regular rate and rhythm. ABDOMEN: Soft. No tenderness. Right leg swelling and redness slightly decreased. LABS: Hemoglobin is 10, white count 5.4. BUN of 12, creatinine 0.63. Blood culture has been negative. DIAGNOSTIC IMPRESSION AND PLAN: Patient with acute right lower extremity cellulitis in this patient who did have diffuse swelling and redness with overall improvement on cefazolin and clindamycin. Plan to finish therapy with oral mg daily for 10 days with close outpatient followup. MMODL / IJN: [id number] /
--- NOTE | 2018-12-05 13:19 | P.DS ---
Providers Date of admission: 11/28/18 23:24 Expected date of discharge: 12/05/18 Attending physician: Alfredito Ann Consults: 11/29/18 16:22 Consult Physician Routine Consulting Provider: Kay Valdes Consult Reason/Comments: cellulits Do you want consulting provider notified?: Yes Primary care physician: Jose Francisco Isabel [facility] Course: 53 years old female patient of Dr. Isabel presents with right lower extremity swelling that started yesterday morning associated with fever, chills, nausea and increased tiredness.patient has significant swelling associated with redness 3 times in the past in the same leg over years. She does not endorse any insect bite, diabetes, trauma, history of lymphedema. Patient vitals suggest a temp of 100.7 tachycardia 103 saturating well at 94 on room air. Labs evaluated suggested WBC of 13.9 hemoglobin 12.8, platelet 124 d-dimer was elevated. I venous Doppler which was negative for any blood clot. She got 1 dose of ceftriaxone and vancomycin in the ER. On evaluation this morning patient still feels tired endorses fever and chills. According to the patient's swelling has improved since yesterday. infectious disease is consulted.patient switched to cefazolin 2 g every 8 hours. Vancomycin and ceftriaxone appears to be strep B infections. 11/30: Patient is resting in bed. Patient is complaining of the hardness of the bed. Patient states that the redness started approximately 2 days ago. She was febrile this morning at 101.6. At this time she is afebrile. Blood pressure 110/69, heart rate 100 pulse oxing 97% on room air. She did injure herself within the last week hitting her leg at work. Patient has history of cellulitis to the right leg previously. Patient denies any drainage or chills. Patient is tolerating antibiotics without any difficulties. WBC 7.7, hemoglobin 11.4, creatinine 0.7. Blood cultures are ordered and pending. No gross after 24 hours. 12/01: Patient is resting in bed feeling better than yesterday. Patient questing why aldactone was held. BUN/Creatinine WNL, will restart. Patient has been afebrile. Blood pressure 107/67, pulse rate 84, pulse oxing 97% on room air. Improvement is noted to the right lower extremity redness and edema. Blood cultures show no growth after 48 hours. Patient denies any abdominal discomfort or nausea vomiting or diarrhea at this time. Patient continues to have no drainage from the site. 12/02: Patient continues to have significant redness of the right lower extremity with no blistering formation she denies any calf pain or tenderness, she continues to have no fever or chills she has no sore throat or difficulty swallowing, we'll continue with SSD 1% drops as well as IV antibiotic in the form of Kefzol and clindamycin. 12/03: Patient is sitting up in bed in no apparent distress. She continues to have increased swelling and erythema of the right leg, she continues to be on clindamycin as well as Kefzol, continue Silvadene cream as well, continue to monitor the patient and follow very closely. 12/04: Patient is feeling better today she continues to have erythema in the right lower extremity however is clearing up no calf tenderness, no fever or chills, no sore throat, no abdominal pain, nausea vomiting or diarrhea. 12/05: Erythema to the right lower extremity continues to improve. Patient was s een by Dr. Valdes this morning and cleared for discharge. We will plan to send patient home on clindamycin. Patient will be discharged home today in stable condition. Discharge diagnoses: 1. Acute sepsis secondary to cellulitis of the right lower extremity. 2. Hypertension blood. 3. History of mild persistent asthma 4. Morbid obesity Discharge plan: Home Impression and plan of care have been directed as dictated by the signing physician. Kyara Cai nurse practitioner acting as scribe for signing physician. Patient Condition at Discharge: Good Plan - Discharge Summary New Discharge Prescriptions: New Clindamycin [Cleocin] 300 mg PO Q6H #60 capsule SILVER sulfADIAZINE Cream [Silvadene 1% Cream] 1 applic TOPICAL DAILY applic Continue Multivitamins, Thera [Multivitamin (formulary)] 1 tab PO DAILY Montelukast [Singulair] 10 mg PO HS Albuterol Inhaler [Ventolin Hfa Inhaler] 2 puff INHALATION RT-Q6H PRN PRN Reason: Shortness Of Breath Spironolactone [Aldactone] 25 mg PO DAILY Lisinopril [Zestril] 2.5 mg PO DAILY Furosemide [Lasix] 20 mg PO DAILY Discharge Medication List Albuterol Inhaler [Ventolin Hfa Inhaler] 2 puff INHALATION RT-Q6H PRN 11/24/16 [History] Furosemide [Lasix] 20 mg PO DAILY 11/24/16 [History] Lisinopril [Zestril] 2.5 mg PO DAILY 11/24/16 [History] Montelukast [Singulair] 10 mg PO HS 11/24/16 [History] Multivitamins, Thera [Multivitamin (formulary)] 1 tab PO DAILY 11/24/16 [Hist ory] Spironolactone [Aldactone] 25 mg PO DAILY 11/24/16 [History] Clindamycin [Cleocin] 300 mg PO Q6H #60 capsule 12/05/18 [Rx] SILVER sulfADIAZINE Cream [Silvadene 1% Cream] 1 applic TOPICAL DAILY applic 12/05/18 [Rx] Follow up Appointment(s)/Referral(s): Jose Francisco Isabel MD [Primary Care Provider] - 1 Week (office closed. please make own appointment ) Kay Valdes MD [STAFF PHYSICIAN] - 1 Week (office closed, please make own appointment ) Patient Instructions/Handouts: Cellulitis (DC) Activity/Diet/Wound Care/Special Instructions: activity as tolerated regular diet as tolerated right leg- silvedene, kerlix, MARIMAR wrap DAILY Discharge Disposition: HOME SELF-CARE
== END 2018-12-05 13:19 | disposition home or self-care (01) | DRG 872 ==
LOC: EC 19:59 → 4MS4W 23:24
PROVIDERS: ADMIT Internal Medicine Geriatric Medicine; ATTEND Internal Medicine Geriatric Medicine
DX: A41.9 Sepsis, unspecified organism (principal); L03.115 Cellulitis of right lower limb; Z68.41 Body mass index [BMI] 40.0-44.9, adult; E66.01 Morbid (severe) obesity due to excess calories; I10 Essential (primary) hypertension; J45.30 Mild persistent asthma, uncomplicated; Z79.899 Other long term (current) drug therapy; Z71.3 Dietary counseling and surveillance; Z88.8 Allergy status to other drugs, medicaments and biological substances; Z87.01 Personal history of pneumonia (recurrent); Z98.891 History of uterine scar from previous surgery; Z98.890 Other specified postprocedural states; Z83.49 Family history of other endocrine, nutritional and metabolic diseases; Z83.3 Family history of diabetes mellitus; Z82.5 Family history of asthma and other chronic lower respiratory diseases; Z82.49 Family history of ischemic heart disease and other diseases of the circulatory system
CPT/HCPCS: 36415; 80053; 81001; 82550; 82565; 83605; 83735; 83880; 84100; 84484; 85025; 85379; 85610; 85652; 85730; 86140; 87040; 93005; 96365; 96366; 96367; 99285

== ENCOUNTER 2020-07-31 11:30 | Inpatient (IN) | payer BC ==
[2020-07-31] MEDS ORDERED: cefTRIAXone IN SWFI 1,000 MG/10 ML SYRINGE IVP STA (11:49)
[2020-07-31] MEDS ORDERED: SODIUM CHLORIDE 0.9% 500 ML 500 ML IV STA (11:49)
[2020-07-31] MEDS ORDERED: VANCOMYCIN IV PER PHARMACY 1 EACH MISC MISCELLANE PRN (11:50)
[2020-07-31] MEDS ORDERED: VANCOMYCIN 2,000 MG in SODIUM CHLORIDE 0.9% 500 ML 500 ML IVPB STA (11:52)
--- NOTE | 2020-07-31 11:54 | ED ---
Extremity Problem HPI - General Chief complaint: Extremity Problem,Nontraumatic Stated complaint: cellulitis Time Seen by Provider: 07/31/20 11:42 Source: patient Mode of arrival: wheelchair Limitations: no limitations - History of Present Illness Initial comments: Patient is a 55-year-old female, history of hypertension, presenting to emergency Department with complaints of cellulitis in her right lower leg 3 days. Patient states she noticed a little bit of redness about 3-4 days ago, was started on Keflex by her PCP however it seems to be increasing and now spreading into her right foot. Patient also been having intermittent fevers for the past 2 days, she's been taking Tylenol for this. Her last dose of Tylenol was approximately 5 hours prior to arrival today. Her last dose of Keflex was also this morning. Patient states her PCP wanted her to come into the ER for admission for IV antibiotics. She denies any falls or trauma. She denies any nausea or vomiting, no chest pain or shortness of breath. She has no further complaints at this time. Upon arrival to the ER, her vitals are stable. - Related Data Home Medications Medication Instructions Recorded Confirmed Albuterol Inhaler (Mhu) [Ventolin 2 puff INHALATION RT-Q6H PRN 11/24/16 11/28/18 Hfa Inhaler (Mhu)] Furosemide [Lasix] 20 mg PO DAILY 11/24/16 11/28/18 Montelukast [Singulair] 10 mg PO HS 11/24/16 11/28/18 Multivitamins, Thera [Multivitamin 1 tab PO DAILY 11/24/16 11/28/18 (formulary)] Spironolactone [Aldactone] 25 mg PO DAILY 11/24/16 11/28/18 lisinopriL [Zestril] 2.5 mg PO DAILY 11/24/16 11/28/18 Previous Rx's Medication Instructions Recorded Clindamycin [Cleocin] 300 mg PO Q6H #60 capsule 12/05/18 SILVER sulfADIAZINE Cream 1 applic TOPICAL DAILY applic 12/05/18 [Silvadene 1% Cream] Allergies Allergy/AdvReac Type Severity Reaction Status Date / Time ibuprofen Allergy Swelling Verified 07/31/20 11:40 Review of Systems ROS Statement: Those systems with pertinent positive or pertinent negative responses have been documented in the HPI. ROS Other: All systems not noted in ROS Statement are negative. Past Medical History Past Medical History: Asthma, Hypertension, Pneumonia Additional Past Medical History / Comment(s): Rt leg cellulitis 4 years ago with ecoli in the leg wounds; second episode two years ago History of Any Multi-Drug Resistant Organisms: None Reported Past Surgical History: Section, Orthopedic Surgery, Tubal Ligation Additional Past Surgical History / Comment(s): 3 right knee surgeries, left shoulder surgery Past Anesthesia/Blood Transfusion Reactions: No Reported Reaction Past Psychological History: No Psychological Hx Reported Smoking Status: Never smoker Past Alcohol Use History: Rare Past Drug Use History: None Reported - Past Family History Mother Family Medical History: Asthma, Diabetes Mellitus, Hyperlipidemia Father History Unknown: Yes Family Medical History: No Reported History Additional Family Medical History / Comment(s): 2 half brothers, one half- brother of sudden heart attack at the age of 39 General Exam - General Exam Comments Initial Comments: GENERAL: Patient is well-developed and well-nourished, obese. Patient is nontoxic and in no acute distress. HEAD: Atraumatic, normocephalic. EYES: Pupils equal round and reactive to light, extraocular movements intact, sclera anicteric, conjunctiva are normal. Eyelids were unremarkable. ENT: TMs normal, nares patent, oropharynx clear without exudates. Moist mucous membranes. NECK: Normal range of motion, supple without lymphadenopathy or JVD. LUNGS: Unlabored respirations. Breath sounds clear to auscultation bilaterally and equal. No wheezes rales or rhonchi. HEART: Regular rate and rhythm without murmurs, rubs or gallops. ABDOMEN: Soft, nontender, normoactive bowel sounds. No guarding, no rebound. No masses appreciated. : Deferred MUSCULOSKELETAL: Normal extremities with adequate strength and normal range of motion, no pitting. No clubbing or cyanosis. NEUROLOGICAL: Patient is alert and oriented x 3. Motor and sensory are also intact. Cranial nerves II through XII grossly intact. Symmetrical smile. Normal speech, normal gait. PSYCH: Normal mood, normal affect. SKIN: Warm, Dry, normal turgor. Patient has erythema, warmth, cellulitis of the rig ht lower leg from just below her right knee extending down into her right foot. She is neurovascular intact. Limitations: no limitations Course Vital Signs 07/31/20 11:34 Temperature 98.3 F Pulse Rate 83 Respiratory 16 Rate Blood Pressure 145/87 O2 Sat by Pulse 97 Oximetry Medical Decision Making - Medical Decision Making Patient is a 55-year-old female with history of hypertension presenting with cellulitis of her right lower leg 3 days. She has been on Keflex, has been having intermittent fevers at home. Her last dose of Keflex and Tylenol was approximately 5 AM this morning. She did see her PCP, he recommended admission for IV antibiotics. Signs are stable upon arrival, afebrile. Pulses are normal. Patient will be started on Rocephin and vancomycin. Patient will be admitted for IV antibiotics, patient accepted by Dr. Ann. We will put infectious disease on consult. Case discussed with Dr. montiel. - Lab Data Result diagrams: 07/31/20 12:15 Lab Results 07/31/20 Range/Units 12:15 WBC 8.4 (3.8-10.6) k/uL RBC 4.52 (3.80-5.40) m/uL Hgb 13.2 (11.4-16.0) gm/dL Hct 40.0 (34.0-46.0) % MCV 88.5 (80.0-100.0) fL MCH 29.2 (25.0-35.0) pg MCHC 33.1 (31.0-37.0) g/dL RDW 13.4 (11.5-15.5) % Plt Count 136 L (150-450) k/uL MPV 9.4 Neutrophils % 81 % Lymphocytes % 13 % Monocytes % 3 % Eosinophils % 1 % Basophils % 0 % Neutrophils # 6.8 (1.3-7.7) k/uL Lymphocytes # 1.1 (1.0-4.8) k/uL Monocytes # 0.3 (0-1.0) k/uL Eosinophils # 0.1 (0-0.7) k/uL Basophils # 0.0 (0-0.2) k/uL ESR Cancelled Disposition Clinical Impression: Cellulitis of right lower extremity, Failure of outpatient treatment Disposition: ADMITTED IP TO THIS [facility] Condition: Stable Referrals: Jose Francisco Isabel MD [Primary Care Provider] - 1-2 days Decision Date: 07/31/20 Decision Time: 12:37
[2020-07-31 12:20] LABS: Basophils % (A) 0 %; Eosinophils # (A) 0.1 k/uL (0-0.7); Eosinophils % (A) 1 %; HGB 13.2 gm/dL (11.4-16.0); Lymphocytes # (A) 1.1 k/uL (1.0-4.8); Lymphocytes % (A) 13 %; MCH 29.2 pg (25.0-35.0); MCHC 33.1 g/dL (31.0-37.0); MCV 88.5 fL (80.0-100.0); Mean Platelet Volume 9.4; Monocytes # (A) 0.3 k/uL (0-1.0); Monocytes % (A) 3 %; Neutrophils # (A) 6.8 k/uL (1.3-7.7); Neutrophils % (A) 81 %; Platelet Count 136 k/uL (150-450); RBC 4.52 m/uL (3.80-5.40); RDW 13.4 % (11.5-15.5); WBC 8.4 k/uL (3.8-10.6)
[2020-07-31] MEDS ORDERED: ONDANSETRON 4 MG/2 ML VIAL IVP PRN (12:33)
[2020-07-31] MEDS ORDERED: NALOXONE 0.4 MG/ML 1 ML VIAL IV PRN (12:33)
[2020-07-31 12:34] LABS: ALT 38 U/L (4-34); AST 44 U/L (14-36); African American GFR (CKD) >90 (>60 ml/min/1.73 sqM); Albumin 3.4 g/dL (3.5-5.0); Alkaline Phosphatase 106 U/L (38-126); Anion Gap 9 mmol/L; Blood Urea Nitrogen 12 mg/dL (7-17); Calcium 8.4 mg/dL (8.4-10.2); Carbon Dioxide 29 mmol/L (22-30); Chloride 101 mmol/L (98-107); Glucose 96 mg/dL (74-99); Non-African American GFR(CKD) >90 (>60 ml/min/1.73 sqM); Potassium 3.4 mmol/L (3.5-5.1); Sodium 139 mmol/L (137-145); Total Bilirubin 0.7 mg/dL (0.2-1.3); Total Protein 6.5 g/dL (6.3-8.2)
[2020-07-31 12:51] LABS: C Reactive Protein 269.2 mg/L (<10.0)
--- NOTE | 2020-07-31 13:43 | US ---
EXAMINATION TYPE: US venous doppler duplex LE RT DATE OF EXAM: 07/31/2020 1:20 PM COMPARISON: NONE CLINICAL HISTORY: RLE pain and swelling. SIDE PERFORMED: Pain redness. TECHNIQUE: The lower extremity deep venous system is examined utilizing real time linear array sonog norma with graded compression, doppler sonography and color-flow sonography. VESSELS IMAGED: Common Femoral Vein Deep Femoral Vein Greater Saphenous Vein * Femoral Vein Popliteal Vein Small Saphenous Vein * Proximal Calf Veins (* superficial vessels) Right Leg: Negative for DVT IMPRESSION: No evidence for DVT.
[2020-07-31] MEDS ORDERED: ACETAMINOPHEN TAB 325 MG TAB PO PRN (14:20)
[2020-07-31] MEDS ORDERED: ALBUTEROL NEBULIZED 2.5 MG/3 ML INHALATION PRN (14:20)
--- NOTE | 2020-07-31 14:20 | P.HPIM ---
History of Present Illness H&P Date: 07/31/20 Chief Complaint: Severe cellulitis of the right lower extremity, anasarca and lymphedema, hi 55-year-old female one of Dr. Isabel's patient mildly obese with history of asthma and hypertension who is known to have history of recurrent cellulitis of the lower extremity last time was over a year ago was treated and that done well. Patient apparently developed to have worsening increased pain and discomfort cellulitis and worsening redness of the right leg started on Sunday was treated with Dr. Isabel as an outpatient she was seen by him on Sunday the site was much worse patient had failed outpatient treatment she called him today with concern that she is having more pain in the leg and worsening cellulitis apparently had resume all virtual call with him and decided cellulitis is much worse she might benefit from IV antibiotics. Patient ended up coming to the emergency department at [facility] her white blood cell weren't marginal Doppler of the leg was done did not show any DVT. Patient was giving 1 g of vancomycin will be admitted to the hospital on Unasyn and seen infectious disease will be on bedrest and topical care with either Silvadene cream or bacitracin. Review of Systems CONSTITUTIONAL: Well-developed no acute respiratory distress. Morbidly obese EYES: No icterus sclerae, no conjunctivitis. EARS, NOSE, MOUTH, THROAT, and FACE: No sore throat, lymphadenopathy, carotid bruits or deformity. RESPIRATORY: No SOB cough or wheezes. History of asthma with no flareup CARDIOVASCULAR: No CP, Palpitation, PND, Orthopnea, or angina. GASTROINTESTINAL: No Abd pain, Nausea or vomiting, no Diarrhea or constipation, No GI Bleed, no distention or masses. GENITOURINARY: Negative for Hematuria or UTI, no kidney stones. INTEGUMENT/BREAST: Negative for any muscular injury with mild osteoarthritis.. Worsening cellulitis right leg chronic edema HEMATOLOGIC/LYMPHATIC: Negative for bleed or purpura. MUSCULOSKELTAL: Negative for Myalgia or arthralgia. NEURLOGICAL: No LOC, Sz or syncope, blurred vision dizziness or abnormality.. BEHAVIORAL/PSYCH: Negative. ENDOCRINE: Negative. Past Medical History Past Medical History: Asthma, Hypertension, Pneumonia Additional Past Medical History / Comment(s): Rt leg cellulitis 4 years ago with ecoli in the leg wounds; second episode two years ago History of Any Multi-Drug Resistant Organisms: None Reported Past Surgical History: Section, Orthopedic Surgery, Tubal Ligation Additional Past Surgical History / Comment(s): 3 right knee surgeries, left shoulder surgery Past Anesthesia/Blood Transfusion Reactions: No Reported Reaction Past Psychological History: No Psychological Hx Reported Smoking Status: Never smoker Past Alcohol Use History: Rare Past Drug Use History: None Reported - Past Family History Mother Family Medical History: Asthma, Diabetes Mellitus, Hyperlipidemia Father History Unknown: Yes Family Medical History: No Reported History Additional Family Medical History / Comment(s): 2 half brothers, one half- brother of sudden heart attack at the age of 39 Medications and Allergies Home Medications Medication Instructions Recorded Confirmed Type Montelukast [Singulair] 10 mg PO HS 11/24/16 07/31/20 History Multivitamins, Thera [Multivitamin 1 tab PO DAILY 11/24/16 07/31/20 History (formulary)] Acetaminophen Tab [Tylenol] 650 mg PO ONCE PRN 07/31/20 07/31/20 History Albuterol Inhaler [Ventolin Hfa 2 puff INHALATION RT-Q6H PRN 07/31/20 07/31/20 History Inhaler] Albuterol Nebulized [Ventolin 2.5 mg INHALATION RT-QID 07/31/20 07/31/20 History Nebulized] Cephalexin [Keflex] 500 mg PO Q6H 07/31/20 07/31/20 History Fluticasone Nasal [place]o [Flonase 2 spray EA NOSTRIL DAILY 07/31/20 07/31/20 History Nasal [place]o] Glucosamine/Chondr Florez A Sod [Osteo 1 tab PO DAILY 07/31/20 07/31/20 History Bi-Flex Caplet] Theophylline 24 Hour [Pelon-24] 200 mg PO DAILY 07/31/20 07/31/20 History predniSONE [Deltasone] See Taper PO DAILY 07/31/20 07/31/20 History Allergies Allergy/AdvReac Type Severity Reaction Status Date / Time ibuprofen Allergy Swelling Verified 07/31/20 11:40 Physical Exam Vitals: Vital Signs Temp Pulse Resp BP Pulse Ox 07/31/20 11:34 98.3 F 83 16 145/87 97 Intake and Output 02/19/21 02/20/21 02/20/21 22:59 06:59 14:59 Other: Weight 125.872 kg General Appearance: Alert, cooperative, no distress, appears stated age. Will be due obese Neck HEENT: Supple, no lymphadenopathy, no thyroid enlargement, no carotid bruits. Lungs: Decreased breath some bilateral with fine rhonchi no crackles or wheezes. Chest Wall: Decrease expansion with deep inspiration no tenderness and no defor mity was found on exam, no costochondral pain or discomfort. Heart: Regular rate and rhythm, S1, S2 normal, no murmur, rub or gallop. Back: Symmetric, no curvature, ROM normal, no CVA tenderness. Abdomen: Soft, non-tender, bowel sounds active all four quadrants, no masses, no organomegaly. Extremities: The right leg has much worsening cellulitis redness and tenderness along with slight change in the vasculature looks like a blister with a grooves. Pulses: 2+ and symmetric. Skin: Skin color, texture, tugor normal, no rashes or lesions. Neurologic: Alert oriented x3 cranial nerves II through XII intact, no motor deficit, no abnormal balance or gait. Results CBC & Chem 7: 07/31/20 12:15 07/31/20 12:15 Labs: Abnormal Lab Results - Last 24 Hours (Table) 07/31/20 07/31/20 Range/Units 12:15 12:15 Plt Count 136 L (150-450) k/uL Potassium 3.4 L (3.5-5.1) mmol/L AST 44 H (14-36) U/L ALT 38 H (4-34) U/L C-Reactive Protein 269.2 H (<10.0) mg/L Albumin 3.4 L (3.5-5.0) g/dL Thrombosis Risk Factor Assmnt - DVT/VTE Prophylaxis DVT/VTE Prophylaxis: Pharmacologic Prophylaxis ordered, Mechanical Prophylaxis ordered Assessment and Plan Assessment: 1 severe acute cellulitis of the right leg with failure to outpatient treatment: Patient was giving 1 g of vancomycin, will see infectious disease, continue Unasyn for now, continue topical care with some of the dynamic cream. Patient might benefit from wound clinic follow-up afterward and might require an aggre ssive thyroid of management for the next week to 10 days. 2 severe edema: Continue patient on furosemide 40 mg twice a day and continue Aldactone 25 mg once a day for now. 3 asthma: Patient has been doing well on Singulair and Ventolin continue both medication and management. 4 hypertension: Patient is doing well on spironolactone and lisinopril continue both medication. 5 mildly abnormal liver function test: Most likely Young continue to watch liver function test no sign of discomfort or pain in the biliary area. 6 hypokalemia: Continue potassium replacement. 7 thrombocytopenia: Most likely from the severity of infection continue to treat underlying disease and recheck CBC in 24 hours. 6 GI prophylaxis: Patient will be on pantoprazole. 7 DVT prophylaxis: Patient will be on subcu heparin.
[2020-07-31] MEDS: ALBUTEROL NEBULIZED 2.5 MG/3 ML INHALATION SCH ×2 (15:12→20:30)
[2020-07-31] MEDS: ACETAMINOPHEN TAB 325 MG TAB PO PRN ×2 (16:21→22:35)
--- NOTE | 2020-07-31 18:05 | CONS ---
CONSULTATION DATE OF SERVICE: 07/31/2020 REASON FOR CONSULTATION: Right lower extremity cellulitis. HISTORY OF PRESENT ILLNESS: The patient is a 55 -year-old female with past medical history significant for recurrent cellulitis of right lower extremity, previous three episodes, in this patient presented to hospital for increasing swelling and redness to the right lower extremity. The patient denies having any history of any trauma. The patient complaining of pain to the right leg to be more of a dull aching to sharp 5 to 6 out of 10 and no radiation. The patient currently does not have any open wound or any drainage. The patient was started on oral Keflex. The patient took for a day or 2. However, the patient did not have any improvement. She noticed to have worsening swelling and redness to the right leg and running a fever of 102 degrees Fahrenheit. With these symptoms, the patient presented to the hospital. On arrival to the ER, the patient has been afebrile. The patient did have a normal white count. Lower extremity Doppler was negative for any DVT. The patient was started on vancomycin and admitted to the hospital. Infectious Disease was consulted for further management of antibiotic therapy. REVIEW OF SYSTEMS: Positive points have been mentioned in HPI. Rest of systems negative. PAST MEDICAL HISTORY: Asthma, hypertension, pneumonia and right lower extremity cellulitis. PAST SURGICAL HISTORY: , tubal ligation, left shoulder surgery and 3 right knee surgeries. SOCIAL HISTORY: Denies smoking. Rarely drinks. No drug use. FAMILY HISTORY: Mother with history of diabetes and hyperlipidemia. ALLERGIES: To IBUPROFEN. MEDICATIONS: The patient is currently on Tylenol, Ventolin, Lovenox, Singulair, Theragran, Narcan, Zofran, Protonix, Theophylline, did receive a dose of Rocephin and Vanco in the ER. PHYSICAL EXAMINATION: Her blood pressure is 126/75 with a pulse of 78, temperature 98.5. She is 99% on room air. General description is a middle-aged female lying in bed in no distress. No tachypnea or accessory muscles of respiration use. HEENT: Examination no pallor or scleral icterus. Oral mucous membranes dry. NECK: Trachea central. No thyromegaly. LUNGS: Unlabored breathing, clear to auscultation anteriorly. No wheeze or crackles. HEART S1, S2. Regular rate and rhythm. ABDOMEN: Soft, no tenderness. No guarding. No rigidity. Right lower extremity did show diffuse swelling and redness. Warm to touch. No skin breakdown or any drainage. NEUROLOGICAL patient is awake, alert, oriented times three. Mood and affect normal. LABS: Hemoglobin 13.8, white count 8.4, BUN of 12, creatinine 0.71. DIAGNOSTIC IMPRESSION AND PLAN: Patient with acute right lower extremity cellulitis in this patient who did have diffuse swelling and redness, likely streptococcal disease, failing outpatient oral Keflex, more likely because of the burden of disease. Clinically not behaving as a gram-negative or any MRSA infection. PLAN: 1. Matt the area of the redness of the right leg. 2. Jozef wrap to the right leg from just above the toe to below the knee. 3. Discontinue vancomycin. 4. Start the patient on cefazolin 3 grams q.8 hours. 5. We will follow on clinical condition and culture to further adjust medication if needed. Thank you for this consultation. Will follow this patient along with you. MMODL / IJN: [id number] /
[2020-07-31] MEDS: MONTELUKAST 10 MG TAB PO SCH (20:16)
[2020-08-01] MEDS ORDERED: VANCOMYCIN 2,000 MG in SODIUM CHLORIDE 0.9% 500 ML 500 ML IVPB SCH (04:00)
[2020-08-01] MEDS: ACETAMINOPHEN TAB 325 MG TAB PO PRN ×3 (05:51→22:14)
[2020-08-01] MEDS: PANTOPRAZOLE 40 MG TABLET PO SCH (05:55)
[2020-08-01 06:21] LABS: Basophils % (A) 1 %; Eosinophils # (A) 0.2 k/uL (0-0.7); Eosinophils % (A) 3 %; HCT 36.9 % (34.0-46.0); HGB 11.8 gm/dL (11.4-16.0); Lymphocytes # (A) 0.9 k/uL (1.0-4.8); Lymphocytes % (A) 16 %; MCH 28.5 pg (25.0-35.0); MCHC 32.1 g/dL (31.0-37.0); MCV 88.8 fL (80.0-100.0); Mean Platelet Volume 9.1; Monocytes # (A) 0.3 k/uL (0-1.0); Monocytes % (A) 5 %; Neutrophils # (A) 4.4 k/uL (1.3-7.7); Neutrophils % (A) 74 %; Platelet Count 134 k/uL (150-450); RBC 4.15 m/uL (3.80-5.40); RDW 13.4 % (11.5-15.5)
[2020-08-01 06:34] LABS: African American GFR (CKD) >90 (>60 ml/min/1.73 sqM); Anion Gap 8 mmol/L; Blood Urea Nitrogen 12 mg/dL (7-17); Calcium 8.2 mg/dL (8.4-10.2); Carbon Dioxide 25 mmol/L (22-30); Chloride 104 mmol/L (98-107); Glucose 101 mg/dL (74-99); Non-African American GFR(CKD) >90 (>60 ml/min/1.73 sqM); Potassium 3.9 mmol/L (3.5-5.1); Sodium 137 mmol/L (137-145)
[2020-08-01 07:14] LABS: C Reactive Protein 200.2 mg/L (<10.0)
[2020-08-01] MEDS: ENOXAPARIN 40 MG/0.4 ML SYRINGE SQ SCH (07:31)
[2020-08-01] MEDS: THEOPHYLLINE 24 HOUR 200 MG CAP.ER.24H PO SCH (07:32)
[2020-08-01] MEDS: ceFAZolin 3 GM in SODIUM CHLORIDE 0.9% 100 ML IVPB SCH ×2 (07:32→15:39)
[2020-08-01] MEDS: FLUTICASONE 50MCG/SPRAY NASAL 16GM EA NOSTRIL SCH (07:32)
[2020-08-01] MEDS: MULTIVITAMINS, THERA 1 EACH TAB PO SCH (07:32)
[2020-08-01] MEDS: ALBUTEROL NEBULIZED 2.5 MG/3 ML INHALATION SCH ×4 (07:34→20:46)
[2020-08-01] MEDS ORDERED: NON FORMULARY DRUG (Glucosamine/Chondr Su A Sod [Osteo Bi-Flex Caplet] 1 EACH Tablet) PO SCH (09:00)
--- NOTE | 2020-08-01 12:10 | P.PN ---
Subjective Progress Note Date: 08/01/20 Principal diagnosis: Severe cellulitis of the right lower extremity, anasarca and lymphedema, hi 55-year-old female one of Dr. Isabel's patient mildly obese with history of asthma and hypertension who is known to have history of recurrent cellulitis of the lower extremity last time was over a year ago was treated and that done well. Patient apparently developed to have worsening increased pain and discomfort cellulitis and worsening redness of the right leg started on Sunday was treated with Dr. Isabel as an outpatient she was seen by him on Sunday the site was much worse patient had failed outpatient treatment she called him today with concern that she is having more pain in the leg and worsening cellulitis apparently had resume all virtual call with him and decided cellulitis is much worse she might benefit from IV antibiotics. Patient ended up coming to the emergency department at [facility] her white blood cell weren't margina l Doppler of the leg was done did not show any DVT. Patient was giving 1 g of vancomycin will be admitted to the hospital on Unasyn and seen infectious disease will be on bedrest and topical care with either Silvadene cream or bacitracin. 08/01: Patient was seen infectious disease switch vancomycin to cefazolin doing well with it so far continue topical care continue dressing the leg looks better than before patient is feeling slightly but this discomfort, like continue to be bedrest it at this point with leg elevation. Objective - Vital Signs Vital signs: Vital Signs Temp 97.9 F 08/01/20 07:37 Pulse 80 08/01/20 07:44 Resp 18 08/01/20 07:37 BP 125/82 08/01/20 07:37 Pulse Ox 95 08/01/20 07:37 Intake & Output 07/31/20 08/01/20 08/01/20 18:59 06:59 18:59 Intake Total 880 Balance 880 Weight 126.7 kg Intake: Oral 880 Other: Voiding Method Toilet # Voids 2 1 1 - Exam Review of Systems CONSTITUTIONAL: Well-developed no acute respiratory distress. Morbidly obese EYES: No icterus sclerae, no conjunctivitis. EARS, NOSE, MOUTH, THROAT, and FACE: No sore throat, lymphadenopathy, carotid bruits or deformity. RESPIRATORY: No SOB cough or wheezes. History of asthma with no flareup CARDIOVASCULAR: No CP, Palpitation, PND, Orthopnea, or angina. GASTROINTESTINAL: No Abd pain, Nausea or vomiting, no Diarrhea or constipation, No GI Bleed, no distention or masses. GENITOURINARY: Negative for Hematuria or UTI, no kidney stones. INTEGUMENT/BREAST: Negative for any muscular injury with mild osteoarthritis.. Worsening cellulitis right leg chronic edema HEMATOLOGIC/LYMPHATIC: Negative for bleed or purpura. MUSCULOSKELTAL: Negative for Myalgia or arthralgia. NEURLOGICAL: No LOC, Sz or syncope, blurred vision dizziness or abnormality.. BEHAVIORAL/PSYCH: Negative. ENDOCRINE: Negative. Physical Exam Vitals: Vital Signs Temp Pulse Resp BP Pulse Ox 07/31/20 11:34 98.3 F 83 16 145/87 97 Intake and Output 07/30/20 07/31/20 07/31/20 22:59 06:59 14:59 Other: Weight 125.872 kg General Appearance: Alert, cooperative, no distress, appears stated age. Will be due obese Neck HEENT: Supple, no lymphadenopathy, no thyroid enlargement, no carotid bruits. Lungs: Decreased breath some bilateral with fine rhonchi no crackles or wheezes. Chest Wall: Decrease expansion with deep inspiration no tenderness and no deformity was found on exam, no costochondral pain or discomfort. Heart: Regular rate and rhythm, S1, S2 normal, no murmur, rub or gallop. Back: Symmetric, no curvature, ROM normal, no CVA tenderness. Abdomen: Soft, non-tender, bowel sounds active all four quadrants, no masses, no organomegaly. Extremities: The right leg has much worsening cellulitis redness and tenderness along with slight change in the vasculature looks like a blister with a grooves. Pulses: 2+ and symmetric. Skin: Skin color, texture, tugor normal, no rashes or lesions. Neurologic: Alert oriented x3 cranial nerves II through XII intact, no motor deficit, no abnormal balance or gait. - Labs CBC & Chem 7: 08/01/20 05:34 08/01/20 05:34 Labs: Abnormal Lab Results - Last 24 Hours (Table) 07/31/20 07/31/20 08/01/20 Range/Units 12:15 12:15 05:34 Plt Count 136 L (150-450) k/uL Lymphocytes # (1.0-4.8) k/uL ESR 76 H (0-20) mm/hr Potassium 3.4 L (3.5-5.1) mmol/L Glucose (74-99) mg/dL Calcium (8.4-10.2) mg/dL AST 44 H (14-36) U/L ALT 38 H (4-34) U/L C-Reactive Protein 269.2 H (<10.0) mg/L Albumin 3.4 L (3.5-5.0) g/dL 08/01/20 08/01/20 Range/Units 05:34 05:34 Plt Count 134 L (150-450) k/uL Lymphocytes # 0.9 L (1.0-4.8) k/uL ESR (0-20) mm/hr Potassium (3.5-5.1) mmol/L Glucose 101 H (74-99) mg/dL Calcium 8.2 L (8.4-10.2) mg/dL AST (14-36) U/L ALT (4-34) U/L C-Reactive Protein 200.2 H (<10.0) mg/L Albumin (3.5-5.0) g/dL Assessment and Plan Assessment: 1 severe acute cellulitis of the right leg with failure to outpatient treatment: Patient was giving 1 g of vancomycin, was seen infectious disease yesterday sw itched to cefazolin IV continue topical care with some Venodyne for now. 2 severe edema: Continue patient on furosemide 40 mg twice a day and continue Aldactone 25 mg once a day for now. 3 asthma: Patient has been doing well on Singulair and Ventolin continue both medication and management. 4 hypertension: Patient is doing well on spironolactone and lisinopril continue both medication. 5 mildly abnormal liver function test: Most likely Young continue to watch liver function test no sign of discomfort or pain in the biliary area. 6 hypokalemia: Continue potassium replacement. 7 thrombocytopenia: Most likely from the severity of infection continue to treat underlying disease and recheck CBC in 24 hours. 6 GI prophylaxis: Patient will be on pantoprazole. 7 DVT prophylaxis: Patient will be on subcu heparin. Pelvis: Full code.
--- NOTE | 2020-08-01 19:44 | PN ---
PROGRESS NOTE DATE OF SERVICE: 08/01/2020 REASON FOR FOLLOWUP: Right lower extremity cellulitis. INTERVAL HISTORY: Patient is currently afebrile. The patient is breathing comfortably. The patient denies having any chest pain. No shortness of breath or cough. Pain and discomfort and redness have slightly decreased. No abdominal pain. No diarrhea. PHYSICAL EXAMINATION: Blood pressure 122/75, pulse of 70. Temperature 97.6. She is 98% on room air. GENERAL DESCRIPTION: The patient is a middle-aged female lying in bed in no distress. RESPIRATORY SYSTEM: Unlabored breathing. Clear to auscultation anteriorly. HEART S1, S2. Regular rate and rhythm. Abdomen soft, no tenderness. Right leg swelling and redness has slightly decreased. LABS: Hemoglobin is 11.1, white count 6.0, BUN of 12, creatinine 0.61. CRP is down to 100. Blood culture negative. DIAGNOSTIC IMPRESSION AND PLAN: Patient with acute right lower extremity cellulitis with diffuse swelling and redness likely streptococcal disease. Patient is covered with cefazolin to continue. Jozef wrap to the leg. We will reevaluate the patient tomorrow. Continue supportive care. MMODL / IJN: [id number] /
[2020-08-01] MEDS: MONTELUKAST 10 MG TAB PO SCH (19:56)
[2020-08-02] MEDS: ceFAZolin 3 GM in SODIUM CHLORIDE 0.9% 100 ML IVPB SCH ×4 (00:41→23:14)
[2020-08-02] MEDS: PANTOPRAZOLE 40 MG TABLET PO SCH (05:37)
[2020-08-02] MEDS: ACETAMINOPHEN TAB 325 MG TAB PO PRN ×3 (05:38→20:39)
[2020-08-02] MEDS: FLUTICASONE 50MCG/SPRAY NASAL 16GM EA NOSTRIL SCH (07:25)
[2020-08-02] MEDS: ENOXAPARIN 40 MG/0.4 ML SYRINGE SQ SCH (07:31)
[2020-08-02] MEDS: ALBUTEROL NEBULIZED 2.5 MG/3 ML INHALATION SCH ×4 (07:33→19:17)
[2020-08-02] MEDS: THEOPHYLLINE 24 HOUR 200 MG CAP.ER.24H PO SCH (08:18)
[2020-08-02] MEDS: MULTIVITAMINS, THERA 1 EACH TAB PO SCH (08:18)
--- NOTE | 2020-08-02 09:26 | P.PN ---
Subjective Progress Note Date: 08/02/20 Principal diagnosis: Severe cellulitis of the right lower extremity, anasarca and lymphedema, hypertension, history of asthma 55-year-old female one of Dr. Isabel's patient mildly obese with history of asthma and hypertension who is known to have history of recurrent cellulitis of the lower extremity last time was over a year ago was treated and that done well. Patient apparently developed to have worsening increased pain and discomfort cellulitis and worsening redness of the right leg started on Sunday was treated with Dr. Isabel as an outpatient she was seen by him on Sunday the site was much worse patient had failed outpatient treatment she called him today with concern that she is having more pain in the leg and worsening cellulitis david zheng had resume all virtual call with him and decided cellulitis is much worse she might benefit from IV antibiotics. Patient ended up coming to the emergency department at [facility] her white blood cell weren't marginal Doppler of the leg was done did not show any DVT. Patient was giving 1 g of vancomycin will be admitted to the hospital on Unasyn and seen infectious disease will be on bedrest and topical care with either Silvadene cream or bacitracin. 08/01: Patient was seen infectious disease switch vancomycin to cefazolin doing well with it so far continue topical care continue dressing the leg looks better than before patient is feeling slightly but this discomfort, like continue to be bedrest it at this point with leg elevation. 08/02: The cellulitis site looks slightly but better still on cefazolin at this point, patient still bedridden rested with leg elevation, still doing topical care still seen infectious disease had more serous drainage from the site with no pus and no open area on the side. Retention of fluid and edema slightly but better, we'll continue current management encourage bedrest and leg elevation for now patient will be probably off work for at least one week and whether she is getting need IV antibiotic or not this to be determined over the next 48 hours per son the respond to the current management. Objective - Vital Signs Vital signs: Vital Signs Temp 98 F 08/02/20 08:00 Pulse 70 08/02/20 08:00 Resp 16 08/02/20 08:00 BP 126/77 08/02/20 08:00 Pulse Ox 94 L 08/02/20 08:00 Intake & Output 08/01/20 08/02/20 08/02/20 18:59 06:59 18:59 Intake Total 600 Balance 600 Intake: Oral 600 Other: Voiding Method Toilet # Voids 2 2 - Exam Review of Systems CONSTITUTIONAL: Well-developed no acute respiratory distress. Morbidly obese EYES: No icterus sclerae, no conjunctivitis. EARS, NOSE, MOUTH, THROAT, and FACE: No sore throat, lymphadenopathy, carotid bruits or deformity. RESPIRATORY: No SOB cough or wheezes. History of asthma with no flareup CARDIOVASCULAR: No CP, Palpitation, PND, Orthopnea, or angina. GASTROINTESTINAL: No Abd pain, Nausea or vomiting, no Diarrhea or constipation, No GI Bleed, no distention or masses. GENITOURINARY: Negative for Hematuria or UTI, no kidney stones. INTEGUMENT/BREAST: Negative for any muscular injury with mild osteoarthritis.. Worsening cellulitis right leg chronic edema HEMATOLOGIC/LYMPHATIC: Negative for bleed or purpura. MUSCULOSKELTAL: Negative for Myalgia or arthralgia. NEURLOGICAL: No LOC, Sz or syncope, blurred vision dizziness or abnormality.. BEHAVIORAL/PSYCH: Negative. ENDOCRINE: Negative. Physical Exam Vitals: Vital Signs Temp Pulse Resp BP Pulse Ox 07/31/20 11:34 98.3 F 83 16 145/87 97 Intake and Output 07/30/20 07/31/20 07/31/20 22:59 06:59 14:59 Other: Weight 125.872 kg General Appearance: Alert, cooperative, no distress, appears stated age. Will be due obese Neck HEENT: Supple, no lymphadenopathy, no thyroid enlargement, no carotid bruits. Lungs: Decreased breath some bilateral with fine rhonchi no crackles or wheezes. Chest Wall: Decrease expansion with deep inspiration no tenderness and no deformity was found on exam, no costochondral pain or discomfort. Heart: Regular rate and rhythm, S1, S2 normal, no murmur, rub or gallop. Back: Symmetric, no curvature, ROM normal, no CVA tenderness. Abdomen: Soft, non-tender, bowel sounds active all four quadrants, no masses, no organomegaly. Extremities: The right leg has much worsening cellulitis redness and tenderness along with slight change in the vasculature looks like a blister with a grooves. Pulses: 2+ and symmetric. Skin: Skin color, texture, tugor normal, no rashes or lesions. Neurologic: Alert oriented x3 cranial nerves II through XII intact, no motor deficit, no abnormal balance or gait. - Labs CBC & Chem 7: 08/01/20 05:34 08/01/20 05:34 Labs: Microbiology - Last 24 Hours (Table) 07/31/20 12:15 Blood Culture - Preliminary Blood No Growth after 24 hours Assessment and Plan Assessment: 1 severe acute cellulitis of the right leg with failure to outpatient treatment: Patient was giving 1 g of vancomycin, was seen infectious disease yesterday switched to cefazolin IV continue topical care with dressing and compression, swelling slightly but better and the line of infection has improved slightly bit so far. 2 severe edema: Continue patient on furosemide 40 mg twice a day and continue Aldactone 25 mg once a day for now. 3 asthma: Patient has been doing well on Singulair and Ventolin continue both medication and management. 4 hypertension: Patient is doing well on spironolactone and lisinopril continue both medication. 5 mildly abnormal liver function test: Most likely Young continue to watch liver function test no sign of discomfort or pain in the biliary area. 6 hypokalemia: Continue potassium replacement. 7 thrombocytopenia: Most likely from the severity of infection continue to treat underlying disease and recheck CBC in 24 hours. Platelet count has improved. Discharge planning possibly home in the next 48 hours depending of the response to management in the next day or so.
--- NOTE | 2020-08-02 15:47 | CDI ---
Documentation Clarification Form Date: 08/02/2020 03:28:36 PM From: Lisette Tinsley RN, CCDS Admit Date: 07/31/2020 12:48:00 PM Patient Name: Chad Hyde Visit Number: [id number] Discharge Date: ATTENTION: The Clinical Documentation Specialists (CDI) and [facility] Coding Staff appreciate your assistance in clarifying documentation. Please respond to the clarification below the line at the bottom and electronically sign. The CDI & [facility] Coding staff will review the response and follow-up if needed. Please note: Queries are made part of the Legal Health Record. If you have any questions, please contact the author of this message via ITS. Dr. Alfredito Ann Asthma is documented in the H/P and subsequent progress note with ongoing treatment. Please render your opinion on the acuity and severity of asthma if known. History/risk factors: Asthma, Morbid obesity, Pneumonia Clinical Indicators: 55-year-old female with history of asthma, present to ED with complaints of increased leg right swelling. She is morbidly obese. She denies shortness of breath, cough or wheezes. History of asthma with no flareups per H&P. Radiology: 07/31 Vital Signs: 145/87 83 16 98.3 97 % RA Treatment: Singulair 10 mg po hs Ventolin 2 puff inhalation q 6 hrs prn Flonase nasal spray 2 spray each nostril daily Pelon-24 200 mg po daily In your professional opinion, can you please further specify Asthma if known? Acute asthma Exacerbation xx Asthma without Exacerbation Other, please specify ___ Unable to determine Severity xx Mild intermittent Mild persistent Moderate persistent Severe persistent Other, please specify ____ Unable to determine Form or Type Cough variant Childhood Exercise induced bronchospasm Extrinsic allergic Idiosyncratic Intrinsic nonallergic Late-onset xx Mixed Other, please specify____ Unable to determine (Last Revision: September 2017) MTDD
[2020-08-02] MEDS: CLINDAMYCIN 900 MG in DEXTROSE 5% IN WATER 50 ML IVPB SCH ×4 (16:41→23:45)
--- NOTE | 2020-08-02 18:01 | PN ---
PROGRESS NOTE DATE OF SERVICE: 08/02/2020 REASON FOR FOLLOWUP: Right lower extremity cellulitis. INTERVAL HISTORY: The patient is currently afebrile. The patient is breathing comfortably. The patient denies having any chest pain or shortness of breath or cough. No nausea or vomiting. No abdominal pain or any worsening pain to the right lower extremity. However, she did mention the redness has not significantly improved. PHYSICAL EXAMINATION: Her blood pressure is 140/74 with a pulse of 81, temperature 98. General description is a middle-aged female lying in bed in no distress. RESPIRATORY SYSTEM: Unlabored breathing. Clear to auscultation anteriorly. HEART: S1, S2. Regular rate and rhythm. ABDOMEN: Soft. No tenderness. Right leg swelling and redness minimally improved. DIAGNOSTIC IMPRESSION AND PLAN: Patient with acute right lower extremity cellulitis in this patient who did have diffuse swelling and redness, likely streptococcal disease with very slow clinical response to cefazolin. She has been offered switching over to daptomycin and arranging for outpatient IV daptomycin. However, the patient refused IV antibiotic on discharge. We will add clindamycin to the cefazolin and see if there is any benefit of the double coverage. Continue with Jozef wrap to the leg. We will check inflammatory markers tomorrow. Continue supportive care. MMODL / IJN: [id number] /
[2020-08-02] MEDS: MONTELUKAST 10 MG TAB PO SCH (20:38)
[2020-08-03 06:23] LABS: Basophils % (A) 1 %; Eosinophils # (A) 0.2 k/uL (0-0.7); Eosinophils % (A) 3 %; HCT 34.7 % (34.0-46.0); HGB 11.5 gm/dL (11.4-16.0); Lymphocytes # (A) 1.1 k/uL (1.0-4.8); Lymphocytes % (A) 15 %; MCH 29.4 pg (25.0-35.0); MCV 89.3 fL (80.0-100.0); Mean Platelet Volume 8.5; Monocytes # (A) 0.3 k/uL (0-1.0); Monocytes % (A) 4 %; Neutrophils # (A) 5.6 k/uL (1.3-7.7); Neutrophils % (A) 77 %; Platelet Count 156 k/uL (150-450); RBC 3.89 m/uL (3.80-5.40); RDW 13.3 % (11.5-15.5); WBC 7.3 k/uL (3.8-10.6)
[2020-08-03] MEDS: PANTOPRAZOLE 40 MG TABLET PO SCH (06:29)
[2020-08-03 06:41] LABS: African American GFR (CKD) >90 (>60 ml/min/1.73 sqM); Anion Gap 7 mmol/L; Blood Urea Nitrogen 10 mg/dL (7-17); C Reactive Protein 65.4 mg/L (<10.0); Calcium 8.3 mg/dL (8.4-10.2); Carbon Dioxide 27 mmol/L (22-30); Chloride 104 mmol/L (98-107); Glucose 101 mg/dL (74-99); Non-African American GFR(CKD) >90 (>60 ml/min/1.73 sqM); Potassium 4.3 mmol/L (3.5-5.1); Sodium 138 mmol/L (137-145)
[2020-08-03] MEDS: ceFAZolin 3 GM in SODIUM CHLORIDE 0.9% 100 ML IVPB SCH ×3 (07:47→23:31)
[2020-08-03] MEDS: ENOXAPARIN 40 MG/0.4 ML SYRINGE SQ SCH (07:56)
[2020-08-03] MEDS: ALBUTEROL NEBULIZED 2.5 MG/3 ML INHALATION SCH ×4 (08:20→19:35)
[2020-08-03] MEDS: FLUTICASONE 50MCG/SPRAY NASAL 16GM EA NOSTRIL SCH (08:46)
[2020-08-03] MEDS: THEOPHYLLINE 24 HOUR 200 MG CAP.ER.24H PO SCH (08:46)
[2020-08-03] MEDS: CLINDAMYCIN 900 MG in DEXTROSE 5% IN WATER 50 ML IVPB SCH ×4 (08:47→16:36)
[2020-08-03] MEDS: MULTIVITAMINS, THERA 1 EACH TAB PO SCH (08:50)
[2020-08-03] MEDS: ACETAMINOPHEN TAB 325 MG TAB PO PRN ×2 (08:52→20:50)
--- NOTE | 2020-08-03 15:59 | PN ---
PROGRESS NOTE DATE OF SERVICE: 08/03/2020 REASON FOR FOLLOWUP: Acute right lower extremity cellulitis. INTERVAL HISTORY: The patient is currently afebrile. The patient is breathing comfortably. The patient denies having any chest pain or shortness of breath or cough. No abdominal pain. She is feeling better as far as the right leg swelling and redness are concerned compared to yesterday. No diarrhea. PHYSICAL EXAMINATION: Blood pressure 149/82 with a pulse of 72, temperature 98. She is 98% on room air. General description is a middle-aged female lying in bed in no distress. RESPIRATORY SYSTEM: Unlabored breathing. Clear to auscultation anteriorly. HEART: S1, S2. Regular rate and rhythm. ABDOMEN: Soft. No tenderness. Right leg swelling and redness have slightly decreased. LABS: Hemoglobin 11.5, white count 7.3, BUN of 10, creatinine 0.61. CRP is down to 65.4. DIAGNOSTIC IMPRESSION AND PLAN: Patient with acute right lower extremity cellulitis in this patient with diffuse swelling and redness. She has shown some clinical improvement after addition of clindamycin; to continue while monitoring clinical course closely. Continue with supportive care. MMODL / IJN: [id number] /
--- NOTE | 2020-08-03 17:14 | P.PN ---
Subjective Severe cellulitis of the right lower extremity, anasarca and lymphedema, hypertension, history of asthma 55-year-old female one of Dr. Isabel's patient mildly obese with history of asthma and hypertension who is known to have history of recurrent cellulitis of the lower extremity last time was over a year ago was treated and that done well. Patient apparently developed to have worsening increased pain and discomfort cellulitis and worsening redness of the right leg started on Sunday was treated with Dr. Isabel as an outpatient she was seen by him on Sunday the site was much worse patient had failed outpatient treatment she called him today with concern that she is having more pain in the leg and worsening cellulitis apparently had resume all virtual call with him and decided cellulitis is much worse she might benefit from IV antibiotics. Patient ended up coming to the emergency department at [facility] her white blood cell weren't marginal Doppler of the leg was done did not show any DVT. Patient was giving 1 g of vancomycin will be admitted to the hospital on Unasyn and seen infectious disease will be on bedrest and topical care with either Silvadene cream or bacitracin. 08/01: Patient was seen infectious disease switch vancomycin to cefazolin doing well with it so far continue topical care continue dressing the leg looks better than before patient is feeling slightly but this discomfort, like continue to be bedrest it at this point with leg elevation. 08/02: The cellulitis site looks slightly but better still on cefazolin at this point, patient still bedridden rested with leg elevation, still doing topical care still seen infectious disease had more serous drainage from the site with no pus and no open area on the side. Retention of fluid and edema slightly but better, we'll continue current management encourage bedrest and leg elevation for now patient will be probably off work for at least one week and whether she is getting need IV antibiotic or not this to be determined over the next 48 hours per son the respond to the current management. 08/03: Patient evaluated this morning. Cellulitis continues to improve. She continues on Clindamyacin along with Cefazolin. Her CRP is also trending down. Possible discharge tomorrow. Objective - Vital Signs Vital signs: Vital Signs Temp 98.0 F 08/03/20 08:35 Pulse 72 08/03/20 08:35 Resp 14 08/03/20 08:35 BP 149/82 08/03/20 08:35 Pulse Ox 98 08/03/20 08:35 Intake & Output 08/02/20 08/03/20 08/03/20 18:59 06:59 18:59 Other: # Voids 1 3 1 # Bowel Movements 1 - Exam General Appearance: Alert, cooperative, no distress, appears stated age. Neck HEENT: Supple, no lymphadenopathy, no thyroid enlargement, no carotid bruits. Lungs: Decreased breath some bilateral with fine rhonchi no crackles or wheezes. Chest Wall: Decrease expansion with deep inspiration no tenderness and no deformity was found on exam, no costochondral pain or discomfort. Heart: Regular rate and rhythm, S1, S2 normal, no murmur, rub or gallop. Back: Symmetric, no curvature, ROM normal, no CVA tenderness. Abdomen: Soft, non-tender, bowel sounds active all four quadrants, no masses, no organomegaly. Extremities: The right leg has much worsening cellulitis redness and tenderness along with slight change in the vasculature looks like a blister with a grooves. Pulses: 2+ and symmetric. Skin: Skin color, texture, tugor normal, no rashes or lesions. Neurologic: Alert oriented x3 cranial nerves II through XII intact, no motor deficit, no abnormal balance or gait. - Labs CBC & Chem 7: 08/03/20 06:00 08/03/20 06:00 Labs: Abnormal Lab Results - Last 24 Hours (Table) 08/03/20 Range/Units 06:00 Glucose 101 H (74-99) mg/dL Calcium 8.3 L (8.4-10.2) mg/dL C-Reactive Protein 65.4 H (<10.0) mg/L Microbiology - Last 24 Hours (Table) 07/31/20 12:15 Blood Culture - Preliminary Blood No Growth after 48 hours Assessment and Plan Plan: 1 severe acute cellulitis of the right leg with failure to outpatient treatment: Patient was giving 1 g of vancomycin, infectious disease on consult, continue on Cefazolin along with Clindamyacin continue topical care with dressing and compression, swelling slightly but better and the line of infection has improved slightly bit so far. 2 severe edema: Continue patient on furosemide 40 mg twice a day and continue Aldactone 25 mg once a day for now. 3 asthma: Patient has been doing well on Singulair and Ventolin continue both medication and management. 4 hypertension: Patient is doing well on spironolactone and lisinopril continue both medication. 5 mildly abnormal liver function test: Most likely Young continue to watch liver function test no sign of discomfort or pain in the biliary area. 6 hypokalemia: Continue potassium replacement. 7 thrombocytopenia: Most likely from the severity of infection continue to treat underlying disease and recheck CBC in 24 hours. Platelet count has improved. Discharge planning possibly home in the next 48 hours depending of the response to management in the next day or so. The above impression and plan of care have been discussed and directed by signing physician. Renetta Middleton nurse practitioner acting as scribe for signing physician.
[2020-08-03] MEDS: MONTELUKAST 10 MG TAB PO SCH (20:50)
[2020-08-04] MEDS: CLINDAMYCIN 900 MG in DEXTROSE 5% IN WATER 50 ML IVPB SCH ×8 (00:10→23:51)
[2020-08-04] MEDS: PANTOPRAZOLE 40 MG TABLET PO SCH (06:33)
[2020-08-04] MEDS: ACETAMINOPHEN TAB 325 MG TAB PO PRN ×2 (06:33→19:03)
[2020-08-04] MEDS: ceFAZolin 3 GM in SODIUM CHLORIDE 0.9% 100 ML IVPB SCH ×3 (08:26→23:19)
[2020-08-04] MEDS: MULTIVITAMINS, THERA 1 EACH TAB PO SCH (08:28)
[2020-08-04] MEDS: FLUTICASONE 50MCG/SPRAY NASAL 16GM EA NOSTRIL SCH (08:28)
[2020-08-04] MEDS: THEOPHYLLINE 24 HOUR 200 MG CAP.ER.24H PO SCH (08:29)
[2020-08-04] MEDS: ENOXAPARIN 40 MG/0.4 ML SYRINGE SQ SCH (08:31)
[2020-08-04] MEDS: ALBUTEROL NEBULIZED 2.5 MG/3 ML INHALATION SCH ×4 (08:43→20:46)
--- NOTE | 2020-08-04 14:38 | P.PN ---
Subjective Progress Note Date: 08/04/20 HISTORY OF PRESENT ILLNESS 55-year-old female one of Dr. Isabel's patient mildly obese with history of asthma and hypertension who is known to have history of recurrent cellulitis of the lower extremity last time was over a year ago was treated and that done well. Patient apparently developed to have worsening increased pain and discomfort cellulitis and worsening redness of the right leg started on Sunday was treated with Dr. Isabel as an outpatient she was seen by him on Sunday the site was much worse patient had failed outpatient treatment she called him today with concern that she is having more pain in the leg and worsening cellulitis apparently had resume all virtual call with him and decided cellulitis is much worse she might benefit from IV antibiotics. Patient ended up coming to the emergency department at [facility] her white blood cell weren't margin al Doppler of the leg was done did not show any DVT. Patient was giving 1 g of vancomycin will be admitted to the hospital on Unasyn and seen infectious disease will be on bedrest and topical care with either Silvadene cream or bacitracin. 08/01: Patient was seen infectious disease switch vancomycin to cefazolin doing well with it so far continue topical care continue dressing the leg looks better than before patient is feeling slightly but this discomfort, like continue to be bedrest it at this point with leg elevation. 08/02: The cellulitis site looks slightly but better still on cefazolin at this point, patient still bedridden rested with leg elevation, still doing topical care still seen infectious disease had more serous drainage from the site with no pus and no open area on the side. Retention of fluid and edema slightly but better, we'll continue current management encourage bedrest and leg elevation for now patient will be probably off work for at least one week and whether she is getting need IV antibiotic or not this to be determined over the next 48 hours per son the respond to the current management. 08/03: Patient evaluated this morning. Cellulitis continues to improve. She continues on Clindamyacin along with Cefazolin. Her CRP is also trending down. Possible discharge tomorrow. 08/04: Patient is followed by Dr. Valdes and is continued on IV antibiotics the form of clindamycin and Kefzol. Blood cultures showing no growth at 72 hours. Patient has been afebrile, heart rate 71, blood pressure 128/70, pulse ox 96% on room air. Patient has had improvement of erythema around the edges, continues to have warmth to the area. Plan is to monitor overnight, continue IV antibiotics and possible discharge tomorrow. REVIEW OF SYSTEMS CONSTITUTIONAL: Well-developed no acute respiratory distress. Morbidly obese. Denies fever, denies chills. EYES: No icterus sclerae, no conjunctivitis. EARS, NOSE, MOUTH, THROAT, and FACE: No sore throat, lymphadenopathy, carotid bruits or deformity. RESPIRATORY: No SOB cough or wheezes. History of asthma with no flareup CARDIOVASCULAR: No CP, Palpitation, PND, Orthopnea, or angina. GASTROINTESTINAL: No Abd pain, Nausea or vomiting, no Diarrhea or constipation, No GI Bleed, no distention or masses. GENITOURINARY: Negative for Hematuria or UTI, no kidney stones. INTEGUMENT/BREAST: Negative for any muscular injury with mild osteoarthritis.. Worsening cellulitis right leg chronic edema HEMATOLOGIC/LYMPHATIC: Negative for bleed or purpura. MUSCULOSKELTAL: Negative for Myalgia or arthralgia. NEURLOGICAL: No LOC, Sz or syncope, blurred vision dizziness or abnormality.. BEHAVIORAL/PSYCH: Negative. ENDOCRINE: Negative. PHYSICAL EXAMINATION General Appearance: Alert, cooperative, no distress, appears stated age. Neck HEENT: Supple, no lymphadenopathy, no thyroid enlargement, no carotid bruits. Lungs: Decreased breath some bilateral with fine rhonchi no crackles or wheezes. Chest Wall: Decrease expansion with deep inspiration no tenderness and no deformity was found on exam, no costochondral pain or discomfort. Heart: Regular rate and rhythm, S1, S2 normal, no murmur, rub or gallop. Back: Symmetric, no curvature, ROM normal, no CVA tenderness. Abdomen: Soft, non-tender, bowel sounds active all four quadrants, no masses, no organomegaly. Extremities: Right lower extremity erythema with warmth. Pulses: 2+ and symmetric. Skin: Skin color, texture, tugor normal, no rashes or lesions. Neurologic: Alert oriented x3 cranial nerves II through XII intact, no motor deficit, no abnormal balance or gait. ASSESSMENT AND PLAN 1 severe acute cellulitis of the right leg with failure to outpatient treatment. Patient is currently on Kefzol and clindamycin. Consult with Dr. Lucio appreciated. Continue local wound care. 2 severe edema: Continue patient on furosemide 40 mg twice a day and continue Aldactone 25 mg once a day for now. 3. Moderate intermittent asthma: Patient has been doing well on Singulair and Ventolin continue both medication and management. 4 hypertension: Patient is doing well on spironolactone and lisinopril continue both medication. 5 mildly abnormal liver function test: Most likely Young continue to watch liver function test no sign of discomfort or pain in the biliary area. 6 hypokalemia: Continue potassium replacement. 7 thrombocytopenia resolved: Most likely from the severity of infection continue to treat underlying disease and recheck CBC in 24 hours. Platelet count has improved. DISCHARGE PLAN Home with family. Impression and plan of care have been directed as dictated by the signing physician. Kyara Cai nurse practitioner acting as scribe for signing pricila jones. Objective - Vital Signs Vital signs: Vital Signs Temp 98.1 F 08/04/20 01:16 Pulse 71 08/04/20 01:16 Resp 16 08/04/20 01:16 BP 128/70 08/04/20 01:16 Pulse Ox 96 08/04/20 01:16 Intake & Output 08/03/20 08/04/20 08/04/20 18:59 06:59 18:59 Other: # Voids 1 1 # Bowel Movements 1 - Labs CBC & Chem 7: 08/03/20 06:00 08/03/20 06:00 Labs: Microbiology - Last 24 Hours (Table) 07/31/20 12:15 Blood Culture - Preliminary Blood No Growth after 72 hours
[2020-08-04] MEDS: MONTELUKAST 10 MG TAB PO SCH (21:07)
--- NOTE | 2020-08-04 23:25 | PN ---
PROGRESS NOTE DATE OF SURGERY: 08/04/2020 REASON FOR FOLLOWUP: Right lower extremity cellulitis. INTERVAL HISTORY: The patient is currently afebrile. The patient is breathing comfortably. Denies having any chest pain, shortness of breath or cough. No nausea, vomiting, abdominal pain. Overall pain and discomfort to the right leg has slightly decreased. PHYSICAL EXAMINATION: Blood pressure 139/72 with a pulse of 72, temperature 98.2. She is 98% on room air. General description: The patient is a middle-aged female lying in bed in no distress. Respiratory system: Unlabored breathing. Clear to auscultation anteriorly. Heart: S1, S2. Regular rate and rhythm. ABDOMEN: Soft, no tenderness. LABS: No new labs have been obtained today. DIAGNOSTIC IMPRESSION AND PLAN: Patient with acute right lower extremity cellulitis in this patient who did have diffuse swelling and redness, likely streptococcal disease. The patient is covered with cefazolin and clindamycin to continue for another 24 hours, finishing therapy with oral Keflex on discharge. Local wound care with dry Aquacel dressing to the posterior leg, followed by Jozef wrap and close outpatient followup. MMODL / IJN: [id number] /
[2020-08-05 03:23] VITALS: TEMP 97.9
[2020-08-05 06:19] LABS: Basophils % (A) 0 %; Eosinophils # (A) 0.2 k/uL (0-0.7); Eosinophils % (A) 4 %; HCT 33.5 % (34.0-46.0); HGB 11.1 gm/dL (11.4-16.0); Lymphocytes # (A) 0.7 k/uL (1.0-4.8); Lymphocytes % (A) 14 %; MCH 29.3 pg (25.0-35.0); MCV 88.7 fL (80.0-100.0); Mean Platelet Volume 8.3; Monocytes # (A) 0.2 k/uL (0-1.0); Monocytes % (A) 4 %; Neutrophils # (A) 4.2 k/uL (1.3-7.7); Neutrophils % (A) 78 %; Platelet Count 208 k/uL (150-450); RBC 3.78 m/uL (3.80-5.40); RDW 13.6 % (11.5-15.5); WBC 5.4 k/uL (3.8-10.6)
[2020-08-05 06:31] LABS: African American GFR (CKD) >90 (>60 ml/min/1.73 sqM); Anion Gap 8 mmol/L; Blood Urea Nitrogen 10 mg/dL (7-17); C Reactive Protein 47.4 mg/L (<10.0); Calcium 8.2 mg/dL (8.4-10.2); Carbon Dioxide 27 mmol/L (22-30); Chloride 106 mmol/L (98-107); Glucose 99 mg/dL (74-99); Non-African American GFR(CKD) >90 (>60 ml/min/1.73 sqM); Potassium 4.3 mmol/L (3.5-5.1); Sodium 141 mmol/L (137-145)
[2020-08-05] MEDS: PANTOPRAZOLE 40 MG TABLET PO SCH (06:35)
[2020-08-05] MEDS: THEOPHYLLINE 24 HOUR 200 MG CAP.ER.24H PO SCH (07:47)
[2020-08-05] MEDS: MULTIVITAMINS, THERA 1 EACH TAB PO SCH (07:47)
[2020-08-05] MEDS: FLUTICASONE 50MCG/SPRAY NASAL 16GM EA NOSTRIL SCH (07:48)
[2020-08-05] MEDS: ceFAZolin 3 GM in SODIUM CHLORIDE 0.9% 100 ML IVPB SCH (07:56)
[2020-08-05] MEDS: ENOXAPARIN 40 MG/0.4 ML SYRINGE SQ SCH (07:57)
--- NOTE | 2020-08-05 07:57 | P.DS ---
Providers Date of admission: 07/31/20 12:48 Expected date of discharge: 08/05/20 Attending physician: Alfredito Ann Consults: 07/31/20 12:34 Consult Physician Urgent Consulting Provider: Kay Valdes Consult Reason/Comments: Right lower leg cellulitis, failed outpatient treatment Do you want consulting provider notified?: Yes Primary care physician: Jose Francisco Isabel [facility] Course: HISTORY OF PRESENT ILLNESS 55-year-old female one of Dr. Isabel's patient mildly obese with history of asthma and hypertension who is known to have history of recurrent cellulitis of the lower extremity last time was over a year ago was treated and that done well. Patient apparently developed to have worsening increased pain and discomfort cellulitis and worsening redness of the right leg started on Sunday was treated with Dr. Isabel as an outpatient she was seen by him on Sunday the site was much worse patient had failed outpatient treatment she called him today with concern that she is having more pain in the leg and worsening cellulitis apparently had resume all virtual call with him and decided cellulitis is much worse she might benefit from IV antibiotics. Patient ended up coming to the emergency department at [facility] her white blood cell weren't marginal Doppler of the leg was done did not show any DVT. Patient was giving 1 g of vancomycin will be admitted to the hospital on Unasyn and seen infectious disease will be on bedrest and topical care with either Silvadene cream or bacitracin. 08/01: Patient was seen infectious disease switch vancomycin to cefazolin doing well with it so far continue topical care continue dressing the leg looks better than before patient is feeling slightly but this discomfort, like continue to be bedrest it at this point with leg elevation. 08/02: The cellulitis site looks slightly but better still on cefazolin at this point, patient still bedridden rested with leg elevation, still doing topical care still seen infectious disease had more serous drainage from the site with no pus and no open area on the side. Retention of fluid and edema slightly but better, we'll continue current management encourage bedrest and leg elevation for now patient will be probably off work for at least one week and whether she is getting need IV antibiotic or not this to be determined over the next 48 hours per son the respond to the current management. 08/03: Patient evaluated this morning. Cellulitis continues to improve. She continues on Clindamyacin along with Cefazolin. Her CRP is also trending down. Possible discharge tomorrow. 08/04: Patient is followed by Dr. Valdes and is continued on IV antibiotics the form of clindamycin and Kefzol. Blood cultures showing no growth at 72 hours. Patient has been afebrile, heart rate 71, blood pressure 128/70, pulse ox 96% on room air. Patient has had improvement of erythema around the edges, continues to have warmth to the area. Plan is to monitor overnight, continue IV antibiotics and possible discharge tomorrow. 08/05: Patient has been afebrile, heart rate 88, blood pressure 133/72, pulse ox 96% on room air. WBC 5.4, hemoglobin 11.1, platelet count 208. Electrolytes and renal function normal. C-reactive protein continues to improve at 47.4. Thrombocytopenia has resolved. Redness to right lower leg is to recede slowly. Majority of the leg continues to have significant erythema, edema Dr. Valdes has recommended Keflex at discharge and local wound care with dry Aquasol dressing to the posterior leg followed by Jozef wrap and outpatient follow-up. ASSESSMENT AND PLAN 1 severe acute cellulitis of the right leg with failure to outpatient treatment. 2 severe edema 3 Moderate intermittent asthma 4 hypertension 5 mildly abnormal liver function test: Most likely Young 6 hypokalemia 7 thrombocytopenia resolved DISCHARGE PLAN Home with family. Impression and plan of care have been directed as dictated by the signing physician. Kyara Cai nurse practitioner acting as scribe for signing physician. Patient Condition at Discharge: Good Plan - Discharge Summary Discharge Rx Participant: No New Discharge Prescriptions: New Cephalexin [Keflex] 500 mg PO Q8HR 7 Days #21 cap Continue Multivitamins, Thera [Multivitamin (formulary)] 1 tab PO DAILY Montelukast [Singulair] 10 mg PO HS Glucosamine/Chondr Florez A Sod [Osteo Bi-Flex Caplet] 1 tab PO DAILY Cephalexin [Keflex] 500 mg PO Q6H Acetaminophen Tab [Tylenol] 650 mg PO ONCE PRN PRN Reason: Fever And/ Or Pain Fluticasone Nasal [place] [Flonase Nasal [place]] 2 spray EA NOSTRIL DAILY Albuterol Nebulized [Ventolin Nebulized] 2.5 mg INHALATION RT-QID Albuterol Inhaler [Ventolin Hfa Inhaler] 2 puff INHALATION RT-Q6H PRN PRN Reason: Shortness Of Breath Theophylline 24 Hour [Pelon-24] 200 mg PO DAILY Discontinued predniSONE [Deltasone] See Taper PO DAILY Discharge Medication List Montelukast [Singulair] 10 mg PO HS 11/24/16 [History] Multivitamins, Thera [Multivitamin (formulary)] 1 tab PO DAILY 11/24/16 [History] Acetaminophen Tab [Tylenol] 650 mg PO ONCE PRN 07/31/20 [History] Albuterol Inhaler [Ventolin Hfa Inhaler] 2 puff INHALATION RT-Q6H PRN 07/31/20 [History] Albuterol Nebulized [Ventolin Nebulized] 2.5 mg INHALATION RT-QID 07/31/20 [History] Cephalexin [Keflex] 500 mg PO Q6H 07/31/20 [History] Fluticasone Nasal [place] [Flonase Nasal [place]] 2 spray EA NOSTRIL DAILY 07/31/20 [History] Glucosamine/Chondr Florez A Sod [Osteo Bi-Flex Caplet] 1 tab PO DAILY 07/31/20 [History] Theophylline 24 Hour [Pelon-24] 200 mg PO DAILY 07/31/20 [History] Cephalexin [Keflex] 500 mg PO Q8HR 7 Days #21 cap 08/05/20 [Rx] Follow up Appointment(s)/Referral(s): Jose Francisco Isabel MD [Primary Care Provider] - 1 Week Kay Valdes MD [STAFF PHYSICIAN] - 1 Week Patient Instructions/Handouts: Cellulitis (GEN) Activity/Diet/Wound Care/Special Instructions: off work until rechecked by Dr. Isabel Discharge Disposition: HOME SELF-CARE
[2020-08-05] MEDS: ALBUTEROL NEBULIZED 2.5 MG/3 ML INHALATION SCH (08:19)
[2020-08-05 08:50] VITALS: BP 138/73; PULSE 88; RESP 18
[2020-08-05] MEDS: CLINDAMYCIN 900 MG in DEXTROSE 5% IN WATER 50 ML IVPB SCH ×2 (09:08)
== END 2020-08-05 12:20 | disposition home or self-care (01) | DRG 603 ==
LOC: EC 11:30 → 6PED 12:48
PROVIDERS: ADMIT Internal Medicine Geriatric Medicine; ATTEND Internal Medicine Geriatric Medicine
DX: L03.115 Cellulitis of right lower limb (principal); Z68.42 Body mass index [BMI] 45.0-49.9, adult; K75.81 Nonalcoholic steatohepatitis (NASH); D69.59 Other secondary thrombocytopenia; Z20.822 Contact with and (suspected) exposure to COVID-19; I10 Essential (primary) hypertension; J45.20 Mild intermittent asthma, uncomplicated; E66.9 Obesity, unspecified; I89.0 Lymphedema, not elsewhere classified; E87.6 Hypokalemia; Z53.20 Procedure and treatment not carried out because of patient's decision for unspecified reasons; Z79.899 Other long term (current) drug therapy; Z98.51 Tubal ligation status; Z88.6 Allergy status to analgesic agent; Z87.01 Personal history of pneumonia (recurrent); Z82.5 Family history of asthma and other chronic lower respiratory diseases; Z83.3 Family history of diabetes mellitus; Z83.438 Family history of other disorder of lipoprotein metabolism and other lipidemia; Z82.49 Family history of ischemic heart disease and other diseases of the circulatory system
CPT/HCPCS: 36415; 80048; 80053; 85025; 85652; 86140; 87040; 87635; 94640; 96365; 96366; 96375; 99284

== ENCOUNTER → 2023-09-06 | Outpatient (CLI) | payer BC ==
[2023-09-06 12:22] LABS: Basophils # (A) 0.1 k/uL (0-0.2); Basophils % (A) 1 %; Eosinophils # (A) 0.2 k/uL (0-0.7); Eosinophils % (A) 2 %; HCT 42.9 % (34.0-46.0); HGB 14.2 gm/dL (11.4-16.0); Lymphocytes # (A) 1.4 k/uL (1.0-4.8); Lymphocytes % (A) 17 %; MCH 29.6 pg (25.0-35.0); MCHC 33.1 g/dL (31.0-37.0); MCV 89.7 fL (80.0-100.0); Mean Platelet Volume 10.2; Monocytes # (A) 0.3 k/uL (0-1.0); Monocytes % (A) 4 %; Neutrophils # (A) 6.1 k/uL (1.3-7.7); Neutrophils % (A) 75 %; Platelet Count 147 k/uL (150-450); RBC 4.79 m/uL (3.80-5.40); WBC 8.1 k/uL (3.8-10.6)
[2023-09-06 13:09] LABS: Total Eosinophil Count 154 #EOS/uL (150-300)
[2023-09-06 21:19] LABS: Alternaria alternata IgE <0.10 kU/L; Aspergillus fumagatus IgE <0.10 kU/L; Birch IgE <0.10 kU/L; Cat Epith & Dander IgE <0.10 kU/L; Cladosporian herbarum IgE <0.10 kU/L; Cockroach IgE <0.10 kU/L; Dermato. farinae IgE <0.10 kU/L; Dog Dander IgE <0.10 kU/L; Elm IgE <0.10 kU/L; Maple (Box Elder) IgE <0.10 kU/L; Oak IgE <0.10 kU/L; Ragweed,Common IgE 0.32 kU/L; Red Top (Bentgrass) IgE 2.39 kU/L
== END | disposition home or self-care (01) ==
LOC: LABWHC1 10:41
PROVIDERS: ATTEND Internal Medicine
DX: J30.2 Other seasonal allergic rhinitis (principal); J45.50 Severe persistent asthma, uncomplicated; J98.4 Other disorders of lung; Z91.09 Other allergy status, other than to drugs and biological substances
CPT/HCPCS: 36415; 82785; 85008; 85025; 86003

== ENCOUNTER → 2023-09-28 | Outpatient (CLI) | payer BC ==
[2023-09-28 16:11] LABS: Basophils # (A) 0.1 k/uL (0-0.2); Basophils % (A) 1 %; Eosinophils # (A) 0.2 k/uL (0-0.7); Eosinophils % (A) 2 %; HGB 12.8 gm/dL (11.4-16.0); Lymphocytes # (A) 1.5 k/uL (1.0-4.8); Lymphocytes % (A) 21 %; MCH 30.1 pg (25.0-35.0); MCHC 32.7 g/dL (31.0-37.0); Mean Platelet Volume 9.3; Monocytes # (A) 0.4 k/uL (0-1.0); Monocytes % (A) 5 %; Neutrophils # (A) 5.1 k/uL (1.3-7.7); Neutrophils % (A) 68 %; Platelet Count 232 k/uL (150-450); RBC 4.25 m/uL (3.80-5.40); RDW 15.3 % (11.5-15.5); WBC 7.4 k/uL (3.8-10.6)
[2023-09-28 21:38] LABS: Total Eosinophil Count 148 #EOS/uL (150-300)
== END | disposition home or self-care (01) ==
LOC: LABWHC1 15:45
PROVIDERS: ATTEND Internal Medicine
DX: Z00.00 Encounter for general adult medical examination without abnormal findings (principal); J45.909 Unspecified asthma, uncomplicated
CPT/HCPCS: 36415; 85008; 85025